=== PATIENT | female | born 1955 | race Caucasian/White ===

== ENCOUNTER 2017-06-20 20:59 | Inpatient (IN) | payer MEDICAID ==
[~2017-06-20] VITALS: Ht 167.6 cm; Wt 148.9 kg
[~2017-06-20 20:59] MED LIST: ACIDOPHILUS LA1 EAC1 ORAL; ARTIFICIAL TEAR15 ML BOTH EYES; ASCORBIC ACID500 MG ORAL; ASPIRIN81 MG ORAL; CARDIZEM30 MG ORAL; CEPACOL SORE T1 EAC5 MM; CRANBERRY450 M4 PO; DILAUDID2 MG ORAL; DIOVAN40 MG ORAL; DOCUSATE SODIU100 MG ORAL; DUONEB 0.5-3(2.53 ML HHN; EXELON3 MG ORAL; FERROUS SULFAT325 MG ORAL; FUROSEMIDE20 M1 ORAL; GABAPENTIN300 MG ORAL; LASIX40 MG ORAL; LEVEMIR100 UNIT/1 SUBQ; MULTIVITAMINS1 EAC2 ORAL; NITROGLYCERIN0.4 MG SL; NORVASC5 MG ORAL; OSCAL D500 MG PO; PLAVIX75 MG ORAL; PROTONIX40 MG ORAL; QVAR7.3 GM INH; SIMVASTATIN10 MG ORAL; SORBITOL 70%30 ML PO; TYLENOL325 MG ORAL; ZOFRAN4 M1 ORAL; [UNRECOGNIZED DRUG - CODE] SUBQ; regular insulin; voltaren TP
[2017-06-20 21:10] VITALS: BP 128/74
[2017-06-20] MEDS ORDERED: Vancomycin 1.5gm/D5W 250ml 250 ML IV ONE (21:15)
[2017-06-20] MEDS ORDERED: Cefepime HCl 2 GM in NS 110 ML IV SCH (21:15)
[2017-06-20] MEDS ORDERED: NS IVLG ONE (21:15)
[2017-06-20 22:01] LABS: HEMATOCRIT 41.4 % (37.0-47.0); HEMOGLOBIN 12.1 G/DL (12.0-16.0); MEAN CORPUSCULAR VOLUME 104 FL (80-99); PLATELET COUNT 63 K/UL (150-450); RED BLOOD COUNT 3.99 M/UL (4.20-5.40); RED CELL DISTRIBUTION WIDTH 12.9 % (11.6-14.8); WHITE BLOOD COUNT 5.8 K/UL (4.8-10.8)
[2017-06-20] MEDS ORDERED: Cefepime 2gm ONE (22:02)
[2017-06-20 22:06] LABS: ANION GAP 2 mmol/L (5-15); BLOOD UREA NITROGEN 53 mg/dL (7-18); CALCIUM 10.1 MG/DL (8.5-10.1); CARBON DIOXIDE 37 MMOL/L (21-32); CHLORIDE 106 MMOL/L (98-107); CREATININE 2.1 MG/DL (0.55-1.30); POTASSIUM 5.4 MMOL/L (3.5-5.1); SODIUM 145 MMOL/L (136-145)
[2017-06-20 22:17] LABS: ALANINE AMINOTRANSFERASE 16 U/L (12-78); ALBUMIN 2.9 G/DL (3.4-5.0); ALBUMIN/GLOBULIN RATIO 0.6 (1.0-2.7); ALKALINE PHOSPHATASE 59 U/L (46-116); ASPARTATE AMINO TRANSFERASE 30 U/L (15-37); BILIRUBIN,TOTAL 0.6 MG/DL (0.2-1.0); CREATINE KINASE 53 U/L (26-308)
[2017-06-20 22:22] LABS: INR 1.2 (0.9-1.1)
--- NOTE | 2017-06-20 22:41 | Emergency Room Report ---
History of Present Illness General Chief Complaint: Dyspnea/Respdistress Source: EMS Present Illness HPI The patient is brought in for respiratory distress. She is from a [facility]. Paramedics apparently were ordered to transport by her doctor. They were initially reluctant because the patient is DO NOT RESUSCITATE status. Apparently the doctor on the phone and asked him to come in for patient evaluation. Apparently she was bradycardic when they arrived but this improved when they helped open her airway. The patient has a history of pneumonia, congestive heart failure and cardiac disease, chronic renal failure, schizophrenia in the past. She is unable to give a history at this time. When here in December, she was able to answer questions. H/O psych. Discharged in December 2014 for constipation. Discharge dx: 1. Generalized weakness. 2. Morbid obesity. 3. Hypertensive cardiovascular disease. 4. Chronic kidney disease, etiology and duration unknown. 5. Neuropathy. 6. Type 2 diabetes mellitus. Allergies: Coded Allergies: CODEINE (Unverified Allergy, Unknown, 12/31/14) FLURAZEPAM (Unverified Allergy, Unknown, 12/31/14) PENICILLINS (Unverified Allergy, Unknown, 12/31/14) Patient History Limited by: medical condition Past Medical History: see triage record, old chart reviewed Social History: Denies: smoking, alcohol use, drug use Social History Narrative SNF - DNR Now: No Reviewed Nursing Documentation: PMH: Agreed, PSxH: Agreed Nursing Documentation-PMH Hx Cardiac Problems: Yes - atherosclerosis, angina Hx Hypertension: Yes Hx COPD: Yes Hx Diabetes: Yes Hx Gastrointestinal Problems: Yes - GERD, Obesity History Of Psychiatric Problem: Yes - Depression, Dementia, Bipolar Review of Systems All Other Systems: limited Physical Exam Vital Signs Date Time Temp Pulse Resp B/P (MAP) Pulse Ox O2 Delivery O2 Flow Rate FiO2 06/20/17 21:00 80 26 125/71 91 Room Air 06/20/17 21:17 100 Sp02 EP Interpretation: reviewed, abnormal - interpreted as low by me General Appearance: severe distress, Chronically Ill, Stupor Head: normocephalic Eyes: bilateral eye normal inspection ENT: dry mucus membranes Neck: supple Respiratory: respiratory distress, accessory muscle use, crackles, rales, rhonchi Cardiovascular #1: regular rate, rhythm, edema Cardiovascular #2: 2+ radial (L) Gastrointestinal: non tender, soft, decreased bowel sounds, overweight Musculoskeletal: other - no deformity Neurologic: other - unresponsive Psychiatric: other - stupor Reflexes: 1+ knee (R), 1+ knee (L) Skin: cyanosis, mottled, other - various hematomata and intertrigo Procedures Critical Care Time Critical Care Time Total Critical Care Time: 30 min bedside evaluation and treatment excludes procedures (EKG). Reason for critical care: NSTEMI, resp failure Possible complications: hypotension, hypertension, CA, shock, arrhythmias, metabolic acidosis, end organ damage, respiratory failure. Interventions: BIPAP, aspirin, antibiotics, fluids Course: Patient in extremis. BIPAP initiated and comprehensive eval with context of DNR. Pneumonia and UTI found. Antibiotics started. NSTEMI - aspirin given. Repeat evaluation with improvement. Consultations: nursing staff, EMS, respiratory Performed by: Dr. Wilson Tolerated well condition = critical, but improved Medical Decision Making Diagnostic Impression: Primary Impression: Respiratory failure Qualified Codes: J96.01 - Acute respiratory failure with hypoxia; J96.02 - Acute respiratory failure with hypercapnia Additional Impressions: Pneumonia Qualified Codes: J18.1 - Lobar pneumonia, unspecified organism CHF (congestive heart failure) Qualified Codes: I50.43 - Acute on chronic combined systolic (congestive) and diastolic (congestive) heart failure NSTEMI (non-ST elevated myocardial infarction) UTI (urinary tract infection) Qualified Codes: N39.0 - Urinary tract infection, site not specified ER Course The patient presents with respiratory distress. Differential includes acute myocardial infarction, congestive heart failure, as COPD, pneumonia amongst others. Clearly she has inadequate tidal volume. The fact he was bradycardic in the field prior to paramedics opened her airway is suggested she's moribund at the moment. We will aggressively attempt to turn respiratory failure around with BiPAP. No wheezing and no bronchospasm. Evaluation will be with EKG, chest x-ray and labs. The patient is critical at this time. Blood gas returns revealing a respiratory failure with respiratory acidosis. EKG shows no acute injury. Labs significant for normal WBC, elevated K, renal insufficiency, + troponin, elevated BNP, pyuria. Chest x-ray shows congestive heart failure and also a left-sided infiltrate with a right-sided effusion. The patient is given aspirin, antibiotics and hydration. Patient improved. No distress at 4:30. Laboratory Tests Test 06/20/17 21:10 06/20/17 21:35 06/21/17 00:00 Arterial Blood pH 7.114 (7.350-7.450) Arterial Blood Partial Pressure CO2 136.3 mmHg (35.0-45.0) *H Arterial Blood Partial Pressure O2 384.4 mmHg (75.0-100.0) H Arterial Blood HCO3 42.7 mmol/L (22.0-26.0) H Arterial Blood Oxygen Saturation 99.2 % (92.0-98.0) H Arterial Blood Base Excess 8.7 [place] Test Positive White Blood Count 5.8 K/UL (4.8-10.8) Red Blood Count 3.99 M/UL (4.20-5.40) L Hemoglobin 12.1 G/DL (12.0-16.0) Hematocrit 41.4 % (37.0-47.0) Mean Corpuscular Volume 104 FL (80-99) H Mean Corpuscular Hemoglobin 30.4 PG (27.0-31.0) Mean Corpuscular Hemoglobin Concent 29.3 G/DL (32.0-36.0) L Red Cell Distribution Width 12.9 % (11.6-14.8) Platelet Count 63 K/UL (150-450) L Mean Platelet Volume 7.6 FL (6.5-10.1) Neutrophils (%) (Auto) % (45.0-75.0) Lymphocytes (%) (Auto) % (20.0-45.0) Monocytes (%) (Auto) % (1.0-10.0) Eosinophils (%) (Auto) % (0.0-3.0) Basophils (%) (Auto) % (0.0-2.0) Differential Total Cells Counted 100 Neutrophils % (Manual) 92 % (45-75) H Lymphocytes % (Manual) 4 % (20-45) L Monocytes % (Manual) 3 % (1-10) Eosinophils % (Manual) 0 % (0-3) Basophils % (Manual) 0 % (0-2) Band Neutrophils 1 % (0-8) Platelet Estimate Decreased L Platelet Morphology Normal Prothrombin Time 12.4 SEC (9.30-11.50) H Prothrombin Time INR 1.2 (0.9-1.1) H PTT 23 SEC (23-33) Sodium Level 145 MMOL/L (136-145) Potassium Level 5.4 MMOL/L (3.5-5.1) H Chloride Level 106 MMOL/L (98-107) Carbon Dioxide Level 37 MMOL/L (21-32) H Anion Gap 2 mmol/L (5-15) L Blood Urea Nitrogen 53 mg/dL (7-18) H Creatinine 2.1 MG/DL (0.55-1.30) H Estimate Glomerular Filtration Rate 23.9 mL/min (>60) Glucose Level 194 MG/DL (74-106) H Lactic Acid Level 1.00 mmol/L (0.66-2.22) Calcium Level 10.1 MG/DL (8.5-10.1) Total Bilirubin 0.6 MG/DL (0.2-1.0) Aspartate Amino Transferase (AST) 30 U/L (15-37) Alanine Aminotransferase (ALT) 16 U/L (12-78) Alkaline Phosphatase 59 U/L (46-116) Total Creatine Kinase 53 U/L (26-308) Troponin I 0.818 ng/mL (0.000-0.056) Pro-B-Type Natriuretic Peptide 04053 pg/mL (0-125) H Total Protein 7.6 G/DL (6.4-8.2) Albumin 2.9 G/DL (3.4-5.0) L Globulin 4.7 g/dL Albumin/Globulin Ratio 0.6 (1.0-2.7) L Lipase 110 U/L (73-393) Urine Color Yellow Urine Appearance Cloudy Urine pH 5 (4.5-8.0) Urine Specific [place] 1.025 (1.005-1.035) Urine Protein 4+ (NEGATIVE) H Urine Glucose (UA) 1+ (NEGATIVE) H Urine Ketones Negative (NEGATIVE) Urine Occult Blood 3+ (NEGATIVE) H Urine Nitrite Negative (NEGATIVE) Urine Bilirubin Negative (NEGATIVE) Urine Urobilinogen Normal MG/DL (0.0-1.0) Urine Leukocyte Esterase 3+ (NEGATIVE) H Urine RBC 15-20 /HPF (0 - 2) H Urine WBC Tntc /HPF (0 - 2) H Urine Squamous Epithelial Cells Moderate /LPF (NONE/OCC) H Urine Amorphous Sediment Moderate /LPF (NONE) H Urine Bacteria Many /HPF (NONE) H Microbiology Date/Time Source Procedure Growth Status 12/25/17 21:35 Nasal Nares Influenza Types A,B Antigen (JEY) - Final Complete EKG Diagnostic Results Rate: normal Rhythm: NSR ST Segments: no acute changes Rhythm Strip Diag. Results EP Interpretation: yes Rhythm: NSR, no PVC's, no ectopy Chest X-Ray Diagnostic Results Chest X-Ray Diagnostic Results : Chest X-Ray Ordered: Yes # of Views/Limited/Complete: 1 View Indication: Other Interpretation: no pneumothorax, other - R effusion and L infiltrate Impression: Other Electronically Signed by: Electronically signed by Patrick Wilson MD Last Vital Signs Date Time Temp Pulse Resp B/P (MAP) Pulse Ox O2 Delivery O2 Flow Rate FiO2 06/21/17 03:13 72 31 99 Facial 100 06/21/17 01:05 97.7 118/72 Status: improved Disposition: ADMITTED INPATIENT Condition: Critical Referrals: NON PHYSICIAN (PCP) Patrick Wilson M.D. Jun 20, 2017 22:41
[2017-06-20 23:05] VITALS: BP 130/78
[2017-06-21] VITALS (8 sets, daily range): BP systolic 94–151; BP diastolic 42–88
[2017-06-21 00:25] LABS: APPEARANCE,URINE CLOUDY; BILIRUBIN, URINE NEGATIVE (NEGATIVE); GLUCOSE, URINE (UA) 1+ (NEGATIVE); KETONES,URINE NEGATIVE (NEGATIVE); LEUKOCYTE ESTERASE ,URINE 3+ (NEGATIVE); NITRITE,URINE NEGATIVE (NEGATIVE); PH,URINE 5 (4.5-8.0); PROTEIN,URINE 4+ (NEGATIVE); UROBILINOGEN,URINE NORMAL MG/DL (0.0-1.0)
[2017-06-21 00:28] LABS: COLOR,URINE YELLOW
--- NOTE | 2017-06-21 12:19 | Diagnostic Imaging Report ---
Indication: Dyspnea Comparison: None A single view chest radiograph was obtained. Findings: Interstitial edema suspected. The heart is enlarged. Vascularity is also prominent. Bones are osteopenic. IMPRESSION: Suspected interstitial edema/CHF
[2017-06-21] MEDS ORDERED: Ondansetron ODT 8mg tab ORAL PRN (13:45)
[2017-06-21] MEDS ORDERED: Nitroglycerin Subl 0.4mg tab SL PRN (13:45)
[2017-06-21] MEDS ORDERED: Milk of Magnesia 30ml Ud ORAL PRN (13:45)
[2017-06-21] MEDS ORDERED: Albuterol ud Inhalation HHN PRN (14:15)
[2017-06-21] MEDS ORDERED: Ipratropium 0.02% Inh Soln 2.5ml UD HHN PRN (14:30)
[2017-06-21] MEDS ORDERED: Albuterol/Ipratropium 3ml neb HHN PRN (14:45)
[2017-06-21 15:53] LABS: HEMATOCRIT 34.3 % (37.0-47.0); HEMOGLOBIN 10.6 G/DL (12.0-16.0); MEAN CORPUSCULAR VOLUME 103 FL (80-99); PLATELET COUNT 57 K/UL (150-450); RED BLOOD COUNT 3.33 M/UL (4.20-5.40); RED CELL DISTRIBUTION WIDTH 12.8 % (11.6-14.8); WHITE BLOOD COUNT 2.9 K/UL (4.8-10.8)
--- NOTE | 2017-06-21 15:58 | Consultation ---
Consult Note Consult Note The patient is brought in for respiratory distress. He had a half-way facility. Paramedics apparently were ordered [place] because the patient is DO NOT RESUSCITATE status. Apparently the doctor on the phone and asked him to come in for patient evaluation. The patient has a history of pneumonia, congestive heart failure and cardiac disease, chronic renal failure in the past. She is unable to give a history at this time. Discharged in 2014 for constipation. Discharge dx: 1. Generalized weakness. 2. Morbid obesity. 3. Hypertensive cardiovascular disease. 4. Chronic kidney disease, etiology and duration unknown. 5. Neuropathy. 6. Type 2 diabetes mellitus. Allergies: CODEINE (Unverified Allergy, Unknown, 12/31/14) FLURAZEPAM (Unverified Allergy, Unknown, 12/31/14) PENICILLINS (Unverified Allergy, Unknown, 12/31/14) Hx Cardiac Problems: Yes - atherosclerosis, angina Hx Hypertension: Yes Hx COPD: Yes Hx Diabetes: Yes Hx Gastrointestinal Problems: Yes - GERD, Obesity History Of Psychiatric Problem: Yes - Depression, Dementia, Bipolar . Assessment/Plan Renal failure- Has a chronic component with ? superimposed acute- in December 2014 the Cr was 2.2 Acute respiratory failure, ON BIPAP Morbid obesity Diabetic Nephropathy COPD Depression Dementia HypoAlbuminemia ? Nephrotic Syndrom Plan: Slow hydrate pul support 24 h urine CrCl and protein Urine studies keep BP and BS TALIA John Jun 21, 2017 15:58
[2017-06-21] MEDS ORDERED: Sodium Polystyrene Sulfonate 15gm Powder ORAL ONE (16:00)
[2017-06-21 16:05] LABS: ANION GAP 5 mmol/L (5-15); BLOOD UREA NITROGEN 56 mg/dL (7-18); CALCIUM 8.8 MG/DL (8.5-10.1); CARBON DIOXIDE 32 MMOL/L (21-32); CHLORIDE 109 MMOL/L (98-107); CREATININE 2.2 MG/DL (0.55-1.30); POTASSIUM 4.9 MMOL/L (3.5-5.1); SODIUM 146 MMOL/L (136-145)
[2017-06-21] MEDS: NovoLOG Insulin Flexpen SUBQ SCH ×2 (16:30→21:00)
[2017-06-21] MEDS ORDERED: Flu Vaccine Quadrivalent 0.5ml IM ONE (18:00)
[2017-06-21] MEDS: Docusate 250mg cap ORAL SCH (18:00)
[2017-06-21] MEDS ORDERED: Nystatin Powder 100,000 units/gm 15gm TOPIC SCH (18:00)
[2017-06-21] MEDS ORDERED: Calcium Carbonate 500mg w/Vit D 200iu tab ORAL SCH (18:00)
[2017-06-21] MEDS: Exelon 1.5mg cap ORAL SCH (18:00)
[2017-06-21] MEDS: Cefepime HCl 2 GM in NS 110 ML IVPB SCH (18:37)
--- NOTE | 2017-06-21 20:15 | Consultation ---
DATE OF CONSULTATION: 06/21/2017 PULMONARY CONSULTATION CONSULTING PHYSICIAN: George Jansen M.D. REFERRING PHYSICIAN: Phoenix Muñoz M.D. HISTORY OF PRESENT ILLNESS: The patient is a 62-year-old female, brought in from the prison facility. The patient currently is a Do Not Resuscitate on chart. The patient with history of pneumonia, CHF. The patient also in chronic renal failure. The patient was seen and evaluated in the emergency room. Chest x-ray showed pulmonary edema and pleural effusion. Arterial blood gases were significantly reduced, pH 7.11. The patient now admitted for further care and management and further optimization. I was called to assist and evaluate further. PAST MEDICAL HISTORY: Generalized weakness, morbid obesity, hypertensive heart disease, chronic kidney disease, neuropathy, and diabetes. ALLERGIES: Noted. REVIEW OF SYSTEMS: Notable for atherosclerosis, angina, GERD, obesity, depression, and dementia. PHYSICAL EXAMINATION: GENERAL: The patient is an ill-appearing female. The patient is altered at present. VITAL SIGNS: On BiPAP, temperature 97.8, pulse 62, respirations 14, blood pressure 97/48, and saturation is 100%. HEENT: Fairly negative. NECK: Supple. LUNGS: With coarse breath sounds. Reduced overall. CARDIAC: S1 and S2. Regular rate and rhythm. ABDOMEN: Soft and nontender. EXTREMITIES: Without cyanosis. LABORATORY DATA: Lab data reviewed, notable for potassium 5.4, BUN 52, and creatinine 2.1. Arterial blood gases initially done last night, pH was 7.11, pCO2 136, and pO2 noted. IMPRESSION: 1. Acute on chronic respiratory failure, currently Do Not Resuscitate status. 2. Profound hypercapnia. 3. Pleural effusion. 4. Possible pulmonary edema. 5. Renal failure. RECOMMENDATIONS: Supportive care. Likely need diuresis. We will followup arterial blood gases and maintain BiPAP. Confirm Do Not Resuscitate status as per primary physician. Followup clinically for changes. Empiric antibiotics and we will await admission to floor care and thereafter proceed with further intervention. George Jansen M.D. DR: TANVI JOB#: [id number] CC: GISELL
--- NOTE | 2017-06-21 22:00 | Consultation ---
DATE OF CONSULTATION: 06/21/2017 INFECTIOUS DISEASES CONSULTATION PRIMARY ATTENDING: Phoenix Muñoz M.D. REASON FOR CONSULTATION: COPD exacerbation and pneumonia. HISTORY OF PRESENT ILLNESS: A 62-year-old white female admitted last night from nursing facility because of respiratory distress. The patient was found to have hypercapnia and respiratory failure and is currently on BiPAP machine. She has shortness of breath and coughing. PAST MEDICAL HISTORY: Significant for diabetes mellitus type 2, morbid obesity, chronic kidney disease, dementia, and anemia. MEDICATIONS: Getting Plavix, Pepcid, isosorbide, diltiazem, Senokot, bupropion, Lipitor, metoprolol, gabapentin , cefepime, insulin, DuoNeb inhaler, Mylanta, methocarbamol, milk of magnesia. ALLERGIES: Allergic to codeine, penicillin, lorazepam, and flurazepam. SOCIAL HISTORY: long-term resident. She was a smoker before. No other significant history obtainable by the patient. PHYSICAL EXAMINATION: VITAL SIGNS: Temperature 97.8 degrees, afebrile, pulse 78, blood pressure 111/82, and respiratory rate is 18. GENERAL APPEARANCE: Morbidly obese, on BiPAP. HEAD AND NECK: On BiPAP. HEART: Normal rate. LUNGS: Decreased expansion and increased expiratory time. ABDOMEN: Soft and obese. EXTREMITIES: She has no significant edema. SKIN: She has some bruises and some rash below the breast. LABORATORY AND DIAGNOSTIC DATA: WBC 5.8, hemoglobin 12.1, hematocrit 41.4, and platelets 63. Sodium 145, potassium 5.4, BUN 53, creatinine 2.1, and glucose 194. BNP was elevated to 21,631. Troponin was elevated to 0.818. Albumin is low 2.9. Chest x-ray show interstitial edema and CHF. IMPRESSION: Chronic obstructive pulmonary disease exacerbation versus pneumonia. The patient seems to have also congestive heart failure and elevated troponin. She has diabetes mellitus, morbid obesity, chronic kidney disease, hypercapnic respiratory failure, and penicillin allergy. We will continue with cefepime. We will follow up the cultures. Influenza A and B test was negative. At the end of my exam, I thank Dr. Muñoz for involving me in the care of this patient. Star Spring M.D. DR: Ella JOB#: [id number] CC: GISELL
[2017-06-22] VITALS: BP 152/82
[2017-06-22] MEDS: Nystatin Powder 100,000 units/gm 15gm TOPIC SCH ×4 (01:28→17:13)
[2017-06-22] MEDS: Metoprolol Tartrate 50mg tab ORAL SCH ×3 (01:29→21:00)
[2017-06-22] MEDS ORDERED: Sodium Polystyrene Sulfonate 15gm Powder ORAL ONE (02:00)
[2017-06-22] MEDS: Methocarbamol 500mg tab ORAL PRN (03:26)
[2017-06-22 04:00] VITALS: BP 164/79
--- NOTE | 2017-06-22 04:30 | History and Physical Report ---
DATE OF ADMISSION: 06/21/2017 IDENTIFICATION DATA: The patient is a pleasant 62-year-old female with past medical history significant for diabetes mellitus type 2, morbid obesity, CKD, and anemia history, at this time, presents to the hospital with COPD exacerbation, respiratory distress, hypercapnic respiratory failure, is on BiPAP, some shortness of breath, as well as coughing and at this time, I am covering. ID service consulted for evaluation and care as well as Pulmonary team and Renal. PAST MEDICAL HISTORY: Generalized weakness, morbid obesity, hypertensive heart disease, CKD, neuropathy, and type 2 diabetes mellitus. ALLERGIES: Codeine . REVIEW OF SYSTEMS: CONSTITUTIONAL: No fever, chills, or night sweats. SKIN: No rashes, bumps, or itching. HEENT: No headache, hearing or vision changes. BREASTS: No lumps, pain, or discharge. PULMONARY: No cough, sputum, or shortness of breath. GASTROINTESTINAL: No nausea, vomiting, or diarrhea. GENITOURINARY: No dysuria, frequency, or urgency. MUSCULOSKELETAL: No joint swelling, muscle pain, or trauma. PHYSICAL EXAMINATION: GENERAL: No acute distress. VITAL SIGNS: Reviewed. PULMONARY: Decreased breath sounds. CARDIOVASCULAR: Regular rate. No S3 or S4. ABDOMEN: Soft, nontender, and nondistended. EXTREMITIES: A 1+ edema. LABORATORY DATA: WBC , hemoglobin 12.6, hematocrit 34, and platelet count 57,000. INR 1.3. BUN of 56 and creatinine 2.2. Hepatitis C and HIV are negative. IMAGING: Reviewed. Ultrasound of the chest suspected interstitial edema with congestive heart failure. Renal ultrasound from two years ago, morbid obesity noted. ASSESSMENT AND RECOMMENDATIONS: 1. Pancytopenia, unknown cause. Reviewed the patient's current imaging, for me to obtain ultrasound of the abdomen, which is pending potentially related to congestive heart failure as well. 2. Anemia secondary to chronic kidney disease. 3. Elevated troponin, non-ST elevation myocardial infarction. Cardiology service consulted. 4. Chronic obstructive pulmonary disease exacerbation versus pneumonia. Occult blood cultures. Follow up on cultures. Has been seen by Dr. Spring. 5. She is on BiPAP currently and is DNR. On empiric antibiotics as per Pulmonary team. 6. Chronic kidney disease, being seen by Dr. Perez, superimposed acute kidney injury on chronic kidney disease. I appreciate consult and care. Phoenix Muñoz M.D. DR: JACKIE JOB#: [id number] CC:
[2017-06-22 05:38] LABS: HEMATOCRIT 33.3 % (37.0-47.0); HEMOGLOBIN 10.5 G/DL (12.0-16.0); MEAN CORPUSCULAR VOLUME 104 FL (80-99); PLATELET COUNT 63 K/UL (150-450); RED BLOOD COUNT 3.21 M/UL (4.20-5.40); RED CELL DISTRIBUTION WIDTH 13.2 % (11.6-14.8); WHITE BLOOD COUNT 2.8 K/UL (4.8-10.8)
[2017-06-22 05:57] LABS: ALANINE AMINOTRANSFERASE 14 U/L (12-78); ALBUMIN 2.2 G/DL (3.4-5.0); ALBUMIN/GLOBULIN RATIO 0.5 (1.0-2.7); ALKALINE PHOSPHATASE 47 U/L (46-116); ANION GAP 1 mmol/L (5-15); ASPARTATE AMINO TRANSFERASE 30 U/L (15-37); BILIRUBIN,TOTAL 0.3 MG/DL (0.2-1.0); BLOOD UREA NITROGEN 54 mg/dL (7-18); CALCIUM 8.7 MG/DL (8.5-10.1); CARBON DIOXIDE 34 MMOL/L (21-32); CHLORIDE 109 MMOL/L (98-107); CHOLESTEROL 90 MG/DL (< 200); GAMMA GLUTAMYL TRANSPEPTIDASE 69 U/L (5-85); HDL CHOLESTEROL 53 MG/DL (40-60); PHOSPHORUS 2.9 MG/DL (2.5-4.9); POTASSIUM 4.8 MMOL/L (3.5-5.1); SODIUM 144 MMOL/L (136-145); TRIGLYCERIDES 82 MG/DL (30-150)
[2017-06-22] MEDS: NovoLOG Insulin Flexpen SUBQ SCH ×4 (06:18→21:00)
[2017-06-22 08:00] VITALS: BP 146/77
--- NOTE | 2017-06-22 08:25 | Pulmonology Progress Note ---
Assessment/Plan Assessment/Plan IMPRESSION: 1. Acute on chronic respiratory failure, 2. Profound hypercapnia. 3. Pleural effusion. 4. Possible pulmonary edema. 5. Renal failure. PLAN BIPAP PRN follow up ABG avoid sedation close follow up MAIRA management impression, plan, and exam edited and reviewed in detail care discussed with RN Subjective Allergies: Coded Allergies: CODEINE (Unverified Allergy, Unknown, 12/31/14) FLURAZEPAM (Unverified Allergy, Unknown, 12/31/14) PENICILLINS (Unverified Allergy, Unknown, 12/31/14) Subjective off bipap on oxygen at present Objective Last 24 Hour Vital Signs Date Time Temp Pulse Resp B/P (MAP) Pulse Ox O2 Delivery O2 Flow Rate FiO2 06/22/17 04:00 99.5 94 24 164/79 99 Venturi Mask 06/22/17 04:00 94 06/22/17 01:29 106 152/82 06/22/17 00:00 104 06/22/17 00:00 98.0 106 17 152/82 99 Venturi Mask 06/21/17 20:00 98.2 98 17 133/88 99 Venturi Mask 06/21/17 20:00 101 06/21/17 19:00 Venturi Mask 14.0 55 06/21/17 19:00 98 Venturi Mask 14.0 55 06/21/17 16:51 85 18 100 Facial 30 06/21/17 16:00 98.6 95 18 151/63 95 30 06/21/17 16:00 98.6 95 18 151/63 95 50 06/21/17 16:00 30 06/21/17 15:18 94 06/21/17 14:34 78 18 99 Facial 30 06/21/17 13:26 74 16 100 Facial 30 06/21/17 12:00 79 06/21/17 10:40 97.8 71 20 111/82 98 50 06/21/17 09:35 97.8 71 20 111/82 98 50 06/21/17 08:45 63 16 100 Facial 30 Intake and Output 06/21/17 06/22/17 19:00 07:00 Intake Total 75 ml 1145 ml Output Total 450 ml 600 ml Balance -375 ml 545 ml Intake Oral 0 ml IV Total 75 ml 1045 ml Other 100 ml Output Urine Total 600 ml Other 450 ml Objective GENERAL: The patient is an ill-appearing female. The patient is altered at present. HEENT: Fairly negative. NECK: Supple. LUNGS: With coarse breath sounds. Reduced overall. CARDIAC: S1 and S2. Regular rate and rhythm. ABDOMEN: Soft and nontender. EXTREMITIES: Without cyanosis. Microbiology Date/Time Source Procedure Growth Status 06/20/17 21:30 Blood Blood Culture - Preliminary NO GROWTH AFTER 24 HOURS Resulted 06/20/17 21:15 Blood Blood Culture - Preliminary NO GROWTH AFTER 24 HOURS Resulted 06/20/17 21:35 Nasal Nares Influenza Types A,B Antigen (JEY) - Final Complete 06/21/17 00:00 Urine,Clean Catch Urine Culture - Preliminary Streptococcus Species Resulted Laboratory Tests 06/21/17 15:20: White Blood Count 2.9L, Red Blood Count 3.33L, Hemoglobin 10.6L, Hematocrit 34.3L, Mean Corpuscular Volume 103H, Mean Corpuscular Hemoglobin 32.0H, Mean Corpuscular Hemoglobin Concent 31.0L, Red Cell Distribution Width 12.8, Platelet Count 57L, Mean Platelet Volume 8.3, Neutrophils (%) (Auto) , Lymphocytes (%) (Auto) , Monocytes (%) (Auto) , Eosinophils (%) (Auto) , Basophils (%) (Auto) , Differential Total Cells Counted 100, Neutrophils % ( Manual) 85H, Lymphocytes % (Manual) 7L, Monocytes % (Manual) 4, Eosinophils % ( Manual) 2, Basophils % (Manual) 0, Band Neutrophils 2, Platelet Estimate DecreasedL, Platelet Morphology Normal, Hypochromasia 1+, Anisocytosis 1+, Sodium Level 146H, Potassium Level 4.9, Chloride Level 109H, Carbon Dioxide Level 32, Anion Gap 5, Blood Urea Nitrogen 56H, Creatinine 2.2H, Estimat Glomerular Filtration Rate 22.6, Glucose Level 98, Calcium Level 8.8, Troponin I 0.779H, Hepatitis A IgM Antibody [Pending], Hepatitis B Surface Antigen [ Pending], Hepatitis B Core IgM Antibody [Pending], Hepatitis C Antibody [Pending ], HIV (1&2) Antibody Rapid Negative 06/22/17 04:20: White Blood Count 2.8L, Red Blood Count 3.21L, Hemoglobin 10.5L, Hematocrit 33.3L, Mean Corpuscular Volume 104H, Mean Corpuscular Hemoglobin 32.6H, Mean Corpuscular Hemoglobin Concent 31.4L, Red Cell Distribution Width 13.2, Platelet Count 63L, Mean Platelet Volume 7.4, Neutrophils (%) (Auto) , Lymphocytes (%) (Auto) , Monocytes (%) (Auto) , Eosinophils (%) (Auto) , Basophils (%) (Auto) , Differential Total Cells Counted 100, Neutrophils % ( Manual) 88H, Lymphocytes % (Manual) 8L, Monocytes % (Manual) 4, Eosinophils % ( Manual) 0, Basophils % (Manual) 0, Band Neutrophils 0, Platelet Estimate DecreasedL, Platelet Morphology Normal, Hypochromasia 1+, Sodium Level 144, Potassium Level 4.8, Chloride Level 109H, Carbon Dioxide Level 34H, Anion Gap 1L , Blood Urea Nitrogen 54H, Creatinine 2.0H, Estimat Glomerular Filtration Rate 25.2, Glucose Level 79, Calcium Level 8.7, Troponin I 1.519H, Macrocytosis 1+, Hemoglobin A1c 6.2H, Uric Acid 8.7H, Phosphorus Level 2.9, Magnesium Level 1.4L , Total Bilirubin 0.3, Gamma Glutamyl Transpeptidase 69, Aspartate Amino Transf (AST/SGOT) 30, Alanine Aminotransferase (ALT/SGPT) 14, Alkaline Phosphatase 47, C-Reactive Protein, Quantitative 11.8H, Pro-B-Type Natriuretic Peptide [id number], Total Protein 6.8, Albumin 2.2L, Globulin 4.6, Albumin/Globulin Ratio 0.5L, Triglycerides Level 82, Cholesterol Level 90, LDL Cholesterol 29, HDL Cholesterol 53, Cholesterol/HDL Ratio 1.7L, Thyroid Stimulating Hormone (TSH) 0.382 Current Medications Medications (Trade) Dose Ordered Sig/Brooks Route PRN Reason Start Time Stop Time Status Last Admin Dose Admin Al Hydroxide/Mg Hydroxide (Mylanta) 30 ml Q4HR PRN ORAL heartburn 06/21/17 13:45 07/21/17 13:44 Albuterol/ Ipratropium (Albuterol/ Ipratropium) 3 ml Q4H PRN HHN Shortness of Breath 06/21/17 14:45 06/26/17 14:44 Atorvastatin Calcium (Lipitor) 40 mg BEDTIME ORAL 06/21/17 21:00 07/21/17 20:59 06/22/17 01:28 Bupropion HCl (Wellbutrin XL) 450 mg DAILY ORAL 06/22/17 09:00 07/22/17 08:59 Cefepime HCl 2 gm/ Sodium Chloride 110 ml @ 220 mls/hr Q24H IVPB 06/21/17 17:00 06/28/17 16:59 06/21/17 18:37 Clopidogrel Bisulfate (Plavix) 75 mg DAILY ORAL 06/22/17 09:00 07/22/17 08:59 Dextrose (Dextrose 50%) STAT PRN IV Hypoglycemia 06/21/17 14:15 07/21/17 14:14 06/21/17 14:32 Diltiazem HCl (Cardizem CD) 120 mg DAILY ORAL 06/22/17 09:00 07/22/17 08:59 Docusate Sodium (Colace) 250 mg TWICE A DAY ORAL 06/21/17 18:00 07/21/17 17:59 Famotidine (Pepcid) 20 mg Q12HR ORAL 06/21/17 18:00 07/21/17 17:59 Gabapentin (Neurontin) 300 mg Q12HR ORAL 06/21/17 21:00 07/21/17 20:59 06/22/17 01:28 Insulin Aspart (NovoLOG) BEFORE MEALS AND HS SUBQ 06/21/17 16:30 07/21/17 16:29 Isosorbide Mononitrate (Imdur) 30 mg DAILY ORAL 06/22/17 09:00 07/22/17 08:59 Methocarbamol (Robaxin) 500 mg Q12HR PRN ORAL MUSCLE SPASM LOWER BACK 06/21/17 13:45 07/21/17 13:44 06/22/17 03:26 Metoprolol Tartrate (Lopressor) 50 mg Q12HR ORAL 06/21/17 21:00 07/21/17 20:59 06/22/17 01:29 Nitroglycerin (Ntg) 0.4 mg Q5M PRN SL Prn Chest Pain 06/21/17 13:45 07/21/17 13:44 Nystatin (Nystop Powder) 1 applic THREE TIMES A DAY TOPIC 06/21/17 20:00 07/21/17 19:59 06/22/17 01:28 Ondansetron HCl (Zofran ODT) 8 mg BID PRN ORAL Nausea & Vomiting 06/21/17 13:45 07/21/17 13:44 Rivastigmine Tartrate (Exelon) 6 mg TWICE A DAY ORAL 06/21/17 18:00 07/21/17 17:59 Sennosides (Senokot) 1 tab DAILY ORAL 06/22/17 09:00 07/22/17 08:59 Sodium Polystyrene Sulfonate (Kayexalate) 45 gm ONCE ONCE ORAL 06/22/17 02:00 06/22/17 02:01 UNV Sodium Chloride 1,000 ml @ 75 mls/hr [id number] IV 06/21/17 16:00 07/21/17 15:59 06/22/17 04:59 GLENN MILLARD Jun 22, 2017 08:25
[2017-06-22] MEDS: Docusate 250mg cap ORAL SCH ×2 (09:00→17:10)
[2017-06-22] MEDS: Sennosides 8.6mg ORAL SCH (09:00)
[2017-06-22] MEDS ORDERED: dilTIAZem HCl CD 120mg cap ORAL SCH (09:00)
[2017-06-22] MEDS: Exelon 1.5mg cap ORAL SCH ×2 (09:00→17:10)
[2017-06-22] MEDS: BuPROPion XL 150mg tab ORAL SCH (09:00)
[2017-06-22] MEDS ORDERED: Imdur 30mg tab ORAL SCH (09:00)
--- NOTE | 2017-06-22 11:36 | Diagnostic Imaging Report ---
Indication: NG tube placement Comparison: None Single view of the abdomen obtained Findings: NG tube is projected over the epigastric region. The tube should be advanced further. IMPRESSION: NG tube should be advanced further. [facility] has communicated the preliminary results to the Emergency Department. Their findings are largely concordant with this report.
[2017-06-22 12:00] VITALS: BP 159/85
--- NOTE | 2017-06-22 12:12 | Infectious Diseases Prog Note ---
Assessment/Plan Assessment/Plan A: Pneumonia UTI COPD Hypercapnic respiratory failure Chronic kidney disease Morbid obesity DM PCN allergy P; Continue Cefepime will f/u cultures Subjective ROS Limited/Unobtainable: Yes Respiratory: Reports: productive cough Allergies: Coded Allergies: CODEINE (Unverified Allergy, Unknown, 12/31/14) FLURAZEPAM (Unverified Allergy, Unknown, 12/31/14) PENICILLINS (Unverified Allergy, Unknown, 12/31/14) Objective Vital Signs Last 24 Hour Vital Signs Date Time Temp Pulse Resp B/P (MAP) Pulse Ox O2 Delivery O2 Flow Rate FiO2 06/22/17 12:00 95 06/22/17 09:43 95 18 99 Facial 55 06/22/17 09:06 Venturi Mask 14.0 55 06/22/17 09:06 98 Venturi Mask 14.0 55 06/22/17 09:00 95 146/77 06/22/17 09:00 95 146/77 06/22/17 09:00 146/77 06/22/17 08:00 100 06/22/17 08:00 98.5 100 24 146/77 97 Venturi Mask 06/22/17 04:00 99.5 94 24 164/79 99 Venturi Mask 06/22/17 04:00 94 06/22/17 01:29 106 152/82 06/22/17 00:00 104 06/22/17 00:00 98.0 106 17 152/82 99 Venturi Mask 06/21/17 20:00 98.2 98 17 133/88 99 Venturi Mask 06/21/17 20:00 101 06/21/17 19:00 Venturi Mask 14.0 55 06/21/17 19:00 98 Venturi Mask 14.0 55 06/21/17 16:51 85 18 100 Facial 30 06/21/17 16:00 98.6 95 18 151/63 95 30 06/21/17 16:00 98.6 95 18 151/63 95 50 06/21/17 16:00 30 06/21/17 15:18 94 06/21/17 14:34 78 18 99 Facial 30 06/21/17 13:26 74 16 100 Facial 30 Height (Feet): 5 Height (Inches): 6.00 Weight (Pounds): 227 HEENT: other - O2 by mask Respiratory/Chest: decreased breath sounds, other - decreased expansion Cardiovascular: tachycardia Abdomen: soft, non tender Extremities: no edema Neurologic/Psychiatric: other - drowsy Microbiology Date/Time Source Procedure Growth Status 06/20/17 21:30 Blood Blood Culture - Preliminary NO GROWTH AFTER 24 HOURS Resulted 06/20/17 21:15 Blood Blood Culture - Preliminary NO GROWTH AFTER 24 HOURS Resulted 06/20/17 21:35 Nasal Nares Influenza Types A,B Antigen (JEY) - Final Complete 06/21/17 00:00 Urine,Clean Catch Urine Culture - Preliminary Streptococcus Species Resulted Laboratory Tests Test 06/21/17 15:20 06/22/17 04:20 06/22/17 09:25 White Blood Count 2.9 K/UL (4.8-10.8) L 2.8 K/UL (4.8-10.8) L Red Blood Count 3.33 M/UL (4.20-5.40) L 3.21 M/UL (4.20-5.40) L Hemoglobin 10.6 G/DL (12.0-16.0) L 10.5 G/DL (12.0-16.0) L Hematocrit 34.3 % (37.0-47.0) L 33.3 % (37.0-47.0) L Mean Corpuscular Volume 103 FL (80-99) H 104 FL (80-99) H Mean Corpuscular Hemoglobin 32.0 PG (27.0-31.0) H 32.6 PG (27.0-31.0) H Mean Corpuscular Hemoglobin Concent 31.0 G/DL (32.0-36.0) L 31.4 G/DL (32.0-36.0) L Red Cell Distribution Width 12.8 % (11.6-14.8) 13.2 % (11.6-14.8) Platelet Count 57 K/UL (150-450) L 63 K/UL (150-450) L Mean Platelet Volume 8.3 FL (6.5-10.1) 7.4 FL (6.5-10.1) Neutrophils (%) (Auto) % (45.0-75.0) % (45.0-75.0) Lymphocytes (%) (Auto) % (20.0-45.0) % (20.0-45.0) Monocytes (%) (Auto) % (1.0-10.0) % (1.0-10.0) Eosinophils (%) (Auto) % (0.0-3.0) % (0.0-3.0) Basophils (%) (Auto) % (0.0-2.0) % (0.0-2.0) Differential Total Cells Counted 100 100 Neutrophils % (Manual) 85 % (45-75) H 88 % (45-75) H Lymphocytes % (Manual) 7 % (20-45) L 8 % (20-45) L Monocytes % (Manual) 4 % (1-10) 4 % (1-10) Eosinophils % (Manual) 2 % (0-3) 0 % (0-3) Basophils % (Manual) 0 % (0-2) 0 % (0-2) Band Neutrophils 2 % (0-8) 0 % (0-8) Platelet Estimate Decreased L Decreased L Platelet Morphology Normal Normal Hypochromasia 1+ 1+ Anisocytosis 1+ Sodium Level 146 MMOL/L (136-145) H 144 MMOL/L (136-145) Potassium Level 4.9 MMOL/L (3.5-5.1) 4.8 MMOL/L (3.5-5.1) Chloride Level 109 MMOL/L (98-107) H 109 MMOL/L (98-107) H Carbon Dioxide Level 32 MMOL/L (21-32) 34 MMOL/L (21-32) H Anion Gap 5 mmol/L (5-15) 1 mmol/L (5-15) L Blood Urea Nitrogen 56 mg/dL (7-18) H 54 mg/dL (7-18) H Creatinine 2.2 MG/DL (0.55-1.30) H 2.0 MG/DL (0.55-1.30) H Estimat Glomerular Filtration Rate 22.6 mL/min (>60) 25.2 mL/min (>60) Glucose Level 98 MG/DL (74-106) 79 MG/DL (74-106) Calcium Level 8.8 MG/DL (8.5-10.1) 8.7 MG/DL (8.5-10.1) Troponin I 0.779 ng/mL (0.000-0.056) 1.519 ng/mL (0.000-0.056) Hepatitis A IgM Antibody Pending Hepatitis B Surface Antigen Pending Hepatitis B Core IgM Antibody Pending Hepatitis C Antibody Pending HIV (1&2) Antibody Rapid Negative (NEGATIVE) Macrocytosis 1+ Hemoglobin A1c 6.2 % (4.3-6.0) H Uric Acid 8.7 MG/DL (2.6-7.2) H Phosphorus Level 2.9 MG/DL (2.5-4.9) Magnesium Level 1.4 MG/DL (1.8-2.4) L Total Bilirubin 0.3 MG/DL (0.2-1.0) Gamma Glutamyl Transpeptidase 69 U/L (5-85) Aspartate Amino Transf (AST/SGOT) 30 U/L (15-37) Alanine Aminotransferase (ALT/SGPT) 14 U/L (12-78) Alkaline Phosphatase 47 U/L (46-116) C-Reactive Protein, Quantitative 11.8 mg/dL (0.00-0.90) H Pro-B-Type Natriuretic Peptide 14640 pg/mL (0-125) H Total Protein 6.8 G/DL (6.4-8.2) Albumin 2.2 G/DL (3.4-5.0) L Globulin 4.6 g/dL Albumin/Globulin Ratio 0.5 (1.0-2.7) L Triglycerides Level 82 MG/DL (30-150) Cholesterol Level 90 MG/DL (< 200) LDL Cholesterol 29 mg/dL (<100) HDL Cholesterol 53 MG/DL (40-60) Cholesterol/HDL Ratio 1.7 (3.3-4.4) L Thyroid Stimulating Hormone (TSH) 0.382 uiU/mL (0.358-3.740) Arterial Blood pH 7.207 (7.350-7.450) Arterial Blood Partial Pressure CO2 86.8 mmHg (35.0-45.0) *H Arterial Blood Partial Pressure O2 84.1 mmHg (75.0-100.0) Arterial Blood HCO3 33.7 mmol/L (22.0-26.0) H Arterial Blood Oxygen Saturation 95.2 % (92.0-98.0) Arterial Blood Base Excess 3.5 Lawrence Test Positive Current Medications Medications (Trade) Dose Ordered Sig/Brooks Route PRN Reason Start Time Stop Time Status Last Admin Dose Admin Al Hydroxide/Mg Hydroxide (Mylanta) 30 ml Q4HR PRN ORAL heartburn 06/21/17 13:45 07/21/17 13:44 Albuterol/ Ipratropium (Albuterol/ Ipratropium) 3 ml Q4H PRN HHN Shortness of Breath 06/21/17 14:45 06/26/17 14:44 Atorvastatin Calcium (Lipitor) 40 mg BEDTIME ORAL 06/21/17 21:00 07/21/17 20:59 06/22/17 01:28 Bupropion HCl (Wellbutrin XL) 450 mg DAILY ORAL 06/22/17 09:00 07/22/17 08:59 Cefepime HCl 2 gm/ Sodium Chloride 110 ml @ 220 mls/hr Q24H IVPB 06/21/17 17:00 06/28/17 16:59 06/21/17 18:37 Clopidogrel Bisulfate (Plavix) 75 mg DAILY ORAL 06/22/17 09:00 07/22/17 08:59 Dextrose (Dextrose 50%) STAT PRN IV Hypoglycemia 06/21/17 14:15 07/21/17 14:14 06/21/17 14:32 Diltiazem HCl (Cardizem CD) 120 mg DAILY ORAL 06/22/17 09:00 07/22/17 08:59 Docusate Sodium (Colace) 250 mg TWICE A DAY ORAL 06/21/17 18:00 07/21/17 17:59 Famotidine (Pepcid) 20 mg Q12HR ORAL 06/21/17 18:00 07/21/17 17:59 Gabapentin (Neurontin) 300 mg Q12HR ORAL 06/21/17 21:00 07/21/17 20:59 06/22/17 01:28 Insulin Aspart (NovoLOG) BEFORE MEALS AND HS SUBQ 06/21/17 16:30 07/21/17 16:29 Isosorbide Mononitrate (Imdur) 30 mg DAILY ORAL 06/22/17 09:00 07/22/17 08:59 Methocarbamol (Robaxin) 500 mg Q12HR PRN ORAL MUSCLE SPASM LOWER BACK 06/21/17 13:45 07/21/17 13:44 06/22/17 03:26 Metoprolol Tartrate (Lopressor) 50 mg Q12HR ORAL 06/21/17 21:00 07/21/17 20:59 06/22/17 01:29 Nitroglycerin (Ntg) 0.4 mg Q5M PRN SL Prn Chest Pain 06/21/17 13:45 07/21/17 13:44 Nystatin (Nystop Powder) 1 applic THREE TIMES A DAY TOPIC 06/21/17 20:00 07/21/17 19:59 06/22/17 09:00 Ondansetron HCl (Zofran ODT) 8 mg BID PRN ORAL Nausea & Vomiting 06/21/17 13:45 07/21/17 13:44 Rivastigmine Tartrate (Exelon) 6 mg TWICE A DAY ORAL 06/21/17 18:00 07/21/17 17:59 Sennosides (Senokot) 1 tab DAILY ORAL 06/22/17 09:00 07/22/17 08:59 Sodium Chloride 1,000 ml @ 75 mls/hr [id number] IV 06/21/17 16:00 07/21/17 15:59 06/22/17 04:59 LUIZ ELDRIDGE Jun 22, 2017 12:12
--- NOTE | 2017-06-22 13:40 | Diagnostic Imaging Report ---
Indication: Abdominal pain Technique: Continuous helical transaxial imaging of the abdomen and pelvis was obtained from the lung bases to the pubic symphysis. No intravenous contrast was administered. Coronal 2-D reformats were also obtained. Automatic Exposure Control was utilized. Total Dose length Product (DLP): 1561.[address] Dose Index Volume (CTDIvol): 19.75,19.95 mGy Comparison: none Findings: This study is limited by body habitus. There is posterior basilar consolidation versus atelectasis and trace pleural effusions. There is nodularity of the liver surface and the spleen is enlarged. The aorta is moderately calcified. Cholecystectomy noted. The pancreas is abnormal in appearance with suggestion of peripancreatic soft tissue stranding especially in the area of the head of the pancreas. Correlation with amylase/lipase recommended. The duodenum also appear somewhat prominent which may be secondary phenomenon. There is no obvious hydronephrosis. There are small stones suspected within the lower pole of the left kidney. There is a hypodense mass in the lower pole the left kidney measuring 2.5 cm probably cystic. Diverticula are noted in the colon. No obvious diverticulitis appreciated. The appendix is normal. There is trace ascites present within the pelvis. Garza catheter is noted in good position. Atrophic uterus demonstrated. Posterior to the sacrum there is soft tissue stranding of subcutaneous fat. There are some calcifications in the gluteal regions bilaterally which may be related to prior injection granulomata. Area of abnormal dystrophic calcification with soft tissue distortion noted left paramidline aspect of the back posterior to the upper lumbar spine region. This may posttraumatic on the basis of previous surgery. IMPRESSION: Possible pancreatitis especially in the area of the pancreatic head. Probable secondary duodenitis. Please correlate clinically. Evidence of chronic liver disease/cirrhosis with stigmata of portal hypertension including trace ascites and splenomegaly. Atherosclerotic disease. Diverticulosis of the colon. No definite diverticulitis. Nonobstructive stones within the left kidney. Left renal cysts suspected. Garza catheter Degenerative changes of the spine. Injection granulomata are noted posteriorly. Posterior basilar atelectasis versus pneumonia. Trace effusions. The CT scanner at [facility] is accredited by the [employer] and the scans are performed using dose optimization techniques as appropriate to a performed exam including Automatic Exposure control.
--- NOTE | 2017-06-22 13:42 | Diagnostic Imaging Report ---
Indication:Abdominal pain Technique: Grayscale and duplex Doppler imaging of the abdomen performed. Comparison: None Findings: Liver is heterogeneous in appearance with nodularity of the liver surface. The spleen is 20 cm in size. There is trace ascites. The demonstrated part of the pancreas, aorta and IVC appear unremarkable. There is no biliary ductal dilatation identified. Doppler evaluation of the main portal vein shows patency. Shadowing foci noted in the lower pole the left kidney. Left renal cyst measuring about 2.5 cm demonstrated. No hydronephrosis seen. Evaluation is limited by body habitus Impression: Cirrhosis with stigmata of portal hypertension including splenomegaly and trace ascites. Postcholecystectomy Left renal cyst Nonobstructive stone suspected left kidney. Limited evaluation due to body habitus
--- NOTE | 2017-06-22 15:28 | Nephrology Progress Note ---
Assessment/Plan Problem List: (1) Acute on chronic renal failure (2) Respiratory failure (3) Pneumonia (4) UTI (urinary tract infection) Assessment Renal failure- Has a chronic component with ? superimposed acute- in December 2014 the Cr was 2.2 Acute respiratory failure, ON BIPAP Morbid obesity Diabetic Nephropathy COPD Depression Dementia HypoAlbuminemia ? Nephrotic Syndrom Plan Plan: Slow hydrate pul support 24 h urine CrCl and protein Urine studies keep BP and BS incheck adjust BP meds Subjective ROS Limited/Unobtainable: No Constitutional: Reports: malaise Objective Objective Last 24 Hour Vital Signs Date Time Temp Pulse Resp B/P (MAP) Pulse Ox O2 Delivery O2 Flow Rate FiO2 06/22/17 12:07 55 06/22/17 12:00 99.3 93 22 159/85 100 Venturi Mask 06/22/17 12:00 95 06/22/17 09:43 95 18 99 Facial 55 06/22/17 09:06 Venturi Mask 14.0 55 06/22/17 09:06 98 Venturi Mask 14.0 55 06/22/17 09:00 95 146/77 06/22/17 09:00 95 146/77 06/22/17 09:00 146/77 06/22/17 08:00 100 06/22/17 08:00 98.5 100 24 146/77 97 Venturi Mask 06/22/17 04:00 99.5 94 24 164/79 99 Venturi Mask 06/22/17 04:00 94 06/22/17 01:29 106 152/82 06/22/17 00:00 104 06/22/17 00:00 98.0 106 17 152/82 99 Venturi Mask 06/21/17 20:00 98.2 98 17 133/88 99 Venturi Mask 06/21/17 20:00 101 06/21/17 19:00 Venturi Mask 14.0 55 06/21/17 19:00 98 Venturi Mask 14.0 55 06/21/17 16:51 85 18 100 Facial 30 06/21/17 16:00 98.6 95 18 151/63 95 30 06/21/17 16:00 98.6 95 18 151/63 95 50 06/21/17 16:00 30 Intake and Output 06/21/17 06/22/17 19:00 07:00 Intake Total 75 ml 1145 ml Output Total 450 ml 600 ml Balance -375 ml 545 ml Intake Oral 0 ml IV Total 75 ml 1045 ml Other 100 ml Output Urine Total 600 ml Other 450 ml Laboratory Tests 06/22/17 04:20: White Blood Count 2.8L, Red Blood Count 3.21L, Hemoglobin 10.5L, Hematocrit 33.3L, Mean Corpuscular Volume 104H, Mean Corpuscular Hemoglobin 32.6H, Mean Corpuscular Hemoglobin Concent 31.4L, Red Cell Distribution Width 13.2, Platelet Count 63L, Mean Platelet Volume 7.4, Neutrophils (%) (Auto) , Lymphocytes (%) (Auto) , Monocytes (%) (Auto) , Eosinophils (%) (Auto) , Basophils (%) (Auto) , Differential Total Cells Counted 100, Neutrophils % ( Manual) 88H, Lymphocytes % (Manual) 8L, Monocytes % (Manual) 4, Eosinophils % ( Manual) 0, Basophils % (Manual) 0, Band Neutrophils 0, Platelet Estimate DecreasedL, Platelet Morphology Normal, Hypochromasia 1+, Macrocytosis 1+, Sodium Level 144, Potassium Level 4.8, Chloride Level 109H, Carbon Dioxide Level 34H, Anion Gap 1L, Blood Urea Nitrogen 54H, Creatinine 2.0H, Estimat Glomerular Filtration Rate 25.2, Glucose Level 79, Hemoglobin A1c 6.2H, Uric Acid 8.7H, Calcium Level 8.7, Phosphorus Level 2.9, Magnesium Level 1.4L, Total Bilirubin 0.3, Gamma Glutamyl Transpeptidase 69, Aspartate Amino Transf (AST/ SGOT) 30, Alanine Aminotransferase (ALT/SGPT) 14, Alkaline Phosphatase 47, Troponin I 1.519H, C-Reactive Protein, Quantitative 11.8H, Pro-B-Type Natriuretic Peptide [id number], Total Protein 6.8, Albumin 2.2L, Globulin 4.6, Albumin/Globulin Ratio 0.5L, Triglycerides Level 82, Cholesterol Level 90, LDL Cholesterol 29, HDL Cholesterol 53, Cholesterol/HDL Ratio 1.7L, Thyroid Stimulating Hormone (TSH) 0.382 06/22/17 09:25: Arterial Blood pH 7.207*L, Arterial Blood Partial Pressure CO2 86.8*H, Arterial Blood Partial Pressure O2 84.1, Arterial Blood HCO3 33.7H, Arterial Blood Oxygen Saturation 95.2, Arterial Blood Base Excess 3.5, Lawrence Test Positive Height (Feet): 5 Height (Inches): 6.00 Weight (Pounds): 227 General Appearance: lethargic Cardiovascular: tachycardia Respiratory/Chest: decreased breath sounds Abdomen: distended TALIA ROGERS Jun 22, 2017 15:28
[2017-06-22] MEDS: Morphine Sulfate 2mg/ml Inj IVP PRN ×2 (15:45→21:50)
--- NOTE | 2017-06-22 15:47 | Wound Care Consultation ---
Wound Assessment Wound Assessment #1: Wound Number: 1 Wound Present on Admission: Yes New Wound: No Status Change of Wound: No Wound Location Body Site Modif: right Wound Location Body Site: breast fold Wound Type: erosion Cornel Test: Does not Cornel Percent of Wound [place]/Red: 100 - scattered Wound Drainage Description: Serosanguineous Wound Drainage Amount: Scant Wound Drainage Odor: None/Absent Tissue Surrounding Wound: Erythemic Wound General Appearance: Reddened, Draining Wound Assessment #2: Wound Number: 2 Wound Present on Admission: Yes New Wound: No Status Change of Wound: No Wound Location Body Site: sacral Wound Type: pressure ulcer Cornel Test: Does not Cornel Pressure Ulcer Stage: Deep Tissue Injury - suspected Wound Thickness: Full Thickness Wound Length: 7.0 Wound Width: 5.5 Wound Depth: utd Percent of Wound [place]/Red: 50 - deep red Percent of Wound Purple/Maroon: 50 Other Colors Identified: noted engel, hyperpigmentated area. Wound Drainage Amount: None Wound Drainage Odor: None/Absent Tissue Surrounding Wound: Intact Wound General Appearance: Reddened Wound Assessment #3: Wound Number: 3 Wound Present on Admission: Yes New Wound: No Status Change of Wound: No Wound Location Body Site Modif: mid Wound Location Body Site: back Wound Type: scar - full thickness scar tissue Cornel Test: Does not Cornel Wound Thickness: Full Thickness Wound Length: 3.0 Wound Width: 8.0 Wound Depth: utd Percent of Wound [place]/Red: 100 Wound Drainage Amount: None Wound Drainage Odor: None/Absent Tissue Surrounding Wound: Intact Wound General Appearance: Reddened Wound Assessment #4: Wound Number: 4 Wound Present on Admission: Yes New Wound: No Status Change of Wound: No Wound Location Body Site Modif: left Wound Location Body Site: toe Wound Type: pressure ulcer Cornel Test: Does not Cornel Pressure Ulcer Stage: I Wound Length: 2.0 Wound Width: 2.0 Percent of Wound [place]/Red: 100 Wound Drainage Amount: None Wound Drainage Odor: None/Absent Tissue Surrounding Wound: Erythemic Wound General Appearance: Reddened Wound Assessment #5: Wound Number: 5 Wound Present on Admission: Yes New Wound: No Status Change of Wound: No Wound Location Body Site Modif: left, dorsal - aspect of foot Wound Type: pressure ulcer Cornel Test: Does not Cornel Pressure Ulcer Stage: I Wound Length: 2.0 Wound Width: 4.0 Wound Depth: utd Percent of Wound [place]/Red: 100 Wound Drainage Amount: None Wound Drainage Odor: None/Absent Tissue Surrounding Wound: Intact Wound General Appearance: Reddened Wound Assessment #6: Wound Number: 6 Wound Present on Admission: Yes New Wound: No Status Change of Wound: No Wound Location Body Site Modif: left Wound Location Body Site: heel Wound Type: pressure ulcer Cornel Test: Does not Cornel Pressure Ulcer Stage: I Wound Length: 4.0 Wound Width: 4.0 Wound Depth: utd Percent of Wound [place]/Red: 100 Wound Drainage Amount: None Wound Drainage Odor: None/Absent Tissue Surrounding Wound: Intact Wound General Appearance: Reddened Wound Comment #1 Right breast fold erosion. #2 Mid Sacral suspected deep tissue injury. #3 Mid back full thickness scar tissue. #4 Left 5th toe stage 1 pressure ulcer. #5 Left dorsal aspect of foot stage 1 pressure ulcer #6 Left heel stage 1 pressure ulcer. Recommendation. -Local wound care as ordered. -Turn and reposition. -Keep clean and dry. -Optimize nutrition. -Low air loss overlay. -Heel protectors. -Offload affected sites and heels. -Asses and notify MD for any further change of condition to skin. RUPERTO COWART Jun 22, 2017 15:47
[2017-06-22 16:00] VITALS: BP 162/81
--- NOTE | 2017-06-22 16:42 | Cardiac Electrophysiology PN ---
Subjective Subjective Dictated [id number] Objective Last 24 Hour Vital Signs Date Time Temp Pulse Resp B/P (MAP) Pulse Ox O2 Delivery O2 Flow Rate FiO2 06/22/17 15:29 94 06/22/17 12:07 55 06/22/17 12:00 99.3 93 22 159/85 100 Venturi Mask 06/22/17 12:00 95 06/22/17 09:43 95 18 99 Facial 55 06/22/17 09:06 Venturi Mask 14.0 55 06/22/17 09:06 98 Venturi Mask 14.0 55 06/22/17 09:00 95 146/77 06/22/17 09:00 95 146/77 06/22/17 09:00 146/77 06/22/17 08:00 100 06/22/17 08:00 98.5 100 24 146/77 97 Venturi Mask 06/22/17 04:00 99.5 94 24 164/79 99 Venturi Mask 06/22/17 04:00 94 06/22/17 01:29 106 152/82 06/22/17 00:00 104 06/22/17 00:00 98.0 106 17 152/82 99 Venturi Mask 06/21/17 20:00 98.2 98 17 133/88 99 Venturi Mask 06/21/17 20:00 101 06/21/17 19:00 Venturi Mask 14.0 55 06/21/17 19:00 98 Venturi Mask 14.0 55 06/21/17 16:51 85 18 100 Facial 30 Intake and Output 06/21/17 06/22/17 19:00 07:00 Intake Total 75 ml 1145 ml Output Total 450 ml 600 ml Balance -375 ml 545 ml Intake Oral 0 ml IV Total 75 ml 1045 ml Other 100 ml Output Urine Total 600 ml Other 450 ml Laboratory Tests Test 06/22/17 04:20 06/22/17 09:25 White Blood Count 2.8 K/UL (4.8-10.8) L Red Blood Count 3.21 M/UL (4.20-5.40) L Hemoglobin 10.5 G/DL (12.0-16.0) L Hematocrit 33.3 % (37.0-47.0) L Mean Corpuscular Volume 104 FL (80-99) H Mean Corpuscular Hemoglobin 32.6 PG (27.0-31.0) H Mean Corpuscular Hemoglobin Concent 31.4 G/DL (32.0-36.0) L Red Cell Distribution Width 13.2 % (11.6-14.8) Platelet Count 63 K/UL (150-450) L Mean Platelet Volume 7.4 FL (6.5-10.1) Neutrophils (%) (Auto) % (45.0-75.0) Lymphocytes (%) (Auto) % (20.0-45.0) Monocytes (%) (Auto) % (1.0-10.0) Eosinophils (%) (Auto) % (0.0-3.0) Basophils (%) (Auto) % (0.0-2.0) Differential Total Cells Counted 100 Neutrophils % (Manual) 88 % (45-75) H Lymphocytes % (Manual) 8 % (20-45) L Monocytes % (Manual) 4 % (1-10) Eosinophils % (Manual) 0 % (0-3) Basophils % (Manual) 0 % (0-2) Band Neutrophils 0 % (0-8) Platelet Estimate Decreased L Platelet Morphology Normal Hypochromasia 1+ Macrocytosis 1+ Sodium Level 144 MMOL/L (136-145) Potassium Level 4.8 MMOL/L (3.5-5.1) Chloride Level 109 MMOL/L (98-107) H Carbon Dioxide Level 34 MMOL/L (21-32) H Anion Gap 1 mmol/L (5-15) L Blood Urea Nitrogen 54 mg/dL (7-18) H Creatinine 2.0 MG/DL (0.55-1.30) H Estimat Glomerular Filtration Rate 25.2 mL/min (>60) Glucose Level 79 MG/DL (74-106) Hemoglobin A1c 6.2 % (4.3-6.0) H Uric Acid 8.7 MG/DL (2.6-7.2) H Calcium Level 8.7 MG/DL (8.5-10.1) Phosphorus Level 2.9 MG/DL (2.5-4.9) Magnesium Level 1.4 MG/DL (1.8-2.4) L Total Bilirubin 0.3 MG/DL (0.2-1.0) Gamma Glutamyl Transpeptidase 69 U/L (5-85) Aspartate Amino Transf (AST/SGOT) 30 U/L (15-37) Alanine Aminotransferase (ALT/SGPT) 14 U/L (12-78) Alkaline Phosphatase 47 U/L (46-116) Troponin I 1.519 ng/mL (0.000-0.056) C-Reactive Protein, Quantitative 11.8 mg/dL (0.00-0.90) H Pro-B-Type Natriuretic Peptide 73229 pg/mL (0-125) H Total Protein 6.8 G/DL (6.4-8.2) Albumin 2.2 G/DL (3.4-5.0) L Globulin 4.6 g/dL Albumin/Globulin Ratio 0.5 (1.0-2.7) L Triglycerides Level 82 MG/DL (30-150) Cholesterol Level 90 MG/DL (< 200) LDL Cholesterol 29 mg/dL (<100) HDL Cholesterol 53 MG/DL (40-60) Cholesterol/HDL Ratio 1.7 (3.3-4.4) L Thyroid Stimulating Hormone (TSH) 0.382 uiU/mL (0.358-3.740) Arterial Blood pH 7.207 (7.350-7.450) Arterial Blood Partial Pressure CO2 86.8 mmHg (35.0-45.0) *H Arterial Blood Partial Pressure O2 84.1 mmHg (75.0-100.0) Arterial Blood HCO3 33.7 mmol/L (22.0-26.0) H Arterial Blood Oxygen Saturation 95.2 % (92.0-98.0) Arterial Blood Base Excess 3.5 Lawrence Test Positive Microbiology Date/Time Source Procedure Growth Status 06/20/17 21:30 Blood Blood Culture - Preliminary NO GROWTH AFTER 24 HOURS Resulted 06/20/17 21:15 Blood Blood Culture - Preliminary NO GROWTH AFTER 24 HOURS Resulted 06/20/17 21:35 Nasal Nares Influenza Types A,B Antigen (JEY) - Final Complete 06/21/17 00:00 Urine,Clean Catch Urine Culture - Preliminary Streptococcus Species Resulted LE BENSON Jun 22, 2017 16:42
[2017-06-22] MEDS: Imdur 30mg tab ORAL SCH (17:10)
[2017-06-22] MEDS: Cefepime HCl 2 GM in NS 110 ML IVPB SCH (17:14)
--- NOTE | 2017-06-22 18:00 | Consultation ---
DATE OF CONSULTATION: 06/22/2017 CARDIOLOGY CONSULTATION CONSULTING PHYSICIAN: Travis Frazier M.D. ATTENDING/REFERRING PHYSICIAN: Phoenix Muñoz M.D. REASON FOR CONSULTATION: Management of hypertension, elevated troponin. HISTORY OF PRESENT ILLNESS: The patient is a 62-year-old lady with history of hypertension, type 2 diabetes, chronic kidney disease, and anemia as well as history of morbid obesity, who was admitted to the hospital with COPD exacerbation and hypercapnic respiratory failure. The patient was on BiPAP. The patient subsequently refused BiPAP. The patient is now asking to be made DNR. The patient also was found to have [id number] myocardial infarction with elevated troponin and cardiology consultation was requested for further evaluation and management. REVIEW OF SYSTEMS: Negative other than what was mentioned in history of present illness. PAST MEDICAL HISTORY: As mentioned above. FAMILY HISTORY: Noncontributory. SOCIAL HISTORY: Denies smoking, drinking alcohol, or using any drugs. ALLERGIES: She is allergic to codeine. PHYSICAL EXAMINATION: VITAL SIGNS: Blood pressure is 159/85, pulse 95, respirations 18, temperature 99.3. HEAD AND NECK: Showed no JVD. LUNGS: Decreased breath sounds. CARDIOVASCULAR: Distant heart sounds with no gallop or murmur. ABDOMEN: Morbidly obese. EXTREMITIES: No pitting edema. LABORATORY AND DIAGNOSTIC DATA: Her EKG shows sinus rhythm with nonspecific intraventricular conduction delay and nonspecific T-wave abnormalities. Laboratories show white count of 2.8, hemoglobin 10.5, hematocrit 33.3, and platelet count is only 63,000. Sodium 144, potassium 4.8, BUN of 54, creatinine 2, and glucose of 79. Troponin was 0.779 and 1.519. ASSESSMENT AND PLAN: 1. Ehf-[id number] myocardial infarction and troponin of 0.78 . The patient does not have any chest pain. The patient also has renal failure. The patient does not want any invasive procedure and wants to be Do Not Resuscitate at this point. We will try to treat the patient medically with aspirin, Plavix, beta-moon, and Imdur. The patient is already on metoprolol 50 mg b.i.d. and Lipitor as well. 2. Morbid obesity. 3. Hypertension, on Cardizem and Toprol. 4. Pancytopenia. Further evaluation by Dr. Muñoz including platelet count of 50,000. 5. Hypercarbic respiratory failure. The patient is refusing BiPAP. 6. Do Not Resuscitate. Thank you very much, Dr. Muñoz, for allowing me to participate in the care of this patient. Please do not hesitate to contact me for any questions regarding my evaluation. Travis Frazier M.D. DR: Kana JOB#: [id number] CC:
[2017-06-22 20:00] VITALS: BP 135/69
--- NOTE | 2017-06-22 21:51 | General Progress Note ---
Assessment/Plan Assessment/Plan ASSESSMENT AND RECOMMENDATIONS: 1. Pancytopenia, likely due to liver disease/cirrhosis. --> continue to monitor, ANC goal is above 1000 2. Anemia secondary to chronic kidney disease. 3. Elevated troponin, non-ST elevation myocardial infarction. Cardiology service following. 4. Chronic obstructive pulmonary disease exacerbation versus pneumonia. 5. She is on BiPAP currently and is DNR. On antibiotics as per Pulmonary team. 6. Chronic kidney disease, being seen by Dr. Perez, superimposed acute kidney injury on chronic kidney disease. Subjective Allergies: Coded Allergies: CODEINE (Unverified Allergy, Unknown, 12/31/14) FLURAZEPAM (Unverified Allergy, Unknown, 12/31/14) PENICILLINS (Unverified Allergy, Unknown, 12/31/14) All Systems: reviewed and negative except above Subjective NAD Objective Last 24 Hour Vital Signs Date Time Temp Pulse Resp B/P (MAP) Pulse Ox O2 Delivery O2 Flow Rate FiO2 06/22/17 20:00 98.3 97 25 135/69 100 Venturi Mask 06/22/17 19:09 Venturi Mask 14.0 55 06/22/17 19:09 99 Venturi Mask 14.0 55 06/22/17 17:10 162/81 06/22/17 16:00 99.5 97 22 162/81 99 Venturi Mask 06/22/17 15:29 94 06/22/17 12:07 55 06/22/17 12:00 99.3 93 22 159/85 100 Venturi Mask 06/22/17 12:00 95 06/22/17 09:43 95 18 99 Facial 55 06/22/17 09:06 Venturi Mask 14.0 55 06/22/17 09:06 98 Venturi Mask 14.0 55 06/22/17 09:00 95 146/77 06/22/17 09:00 95 146/77 06/22/17 09:00 146/77 06/22/17 08:00 100 06/22/17 08:00 98.5 100 24 146/77 97 Venturi Mask 06/22/17 04:00 99.5 94 24 164/79 99 Venturi Mask 06/22/17 04:00 94 06/22/17 01:29 106 152/82 06/22/17 00:00 104 06/22/17 00:00 98.0 106 17 152/82 99 Venturi Mask Intake and Output 06/21/17 06/22/17 19:00 07:00 Intake Total 75 ml 1145 ml Output Total 450 ml 600 ml Balance -375 ml 545 ml Intake Oral 0 ml IV Total 75 ml 1045 ml Other 100 ml Output Urine Total 600 ml Other 450 ml Laboratory Tests 06/22/17 04:20: White Blood Count 2.8L, Red Blood Count 3.21L, Hemoglobin 10.5L, Hematocrit 33.3L, Mean Corpuscular Volume 104H, Mean Corpuscular Hemoglobin 32.6H, Mean Corpuscular Hemoglobin Concent 31.4L, Red Cell Distribution Width 13.2, Platelet Count 63L, Mean Platelet Volume 7.4, Neutrophils (%) (Auto) , Lymphocytes (%) (Auto) , Monocytes (%) (Auto) , Eosinophils (%) (Auto) , Basophils (%) (Auto) , Differential Total Cells Counted 100, Neutrophils % ( Manual) 88H, Lymphocytes % (Manual) 8L, Monocytes % (Manual) 4, Eosinophils % ( Manual) 0, Basophils % (Manual) 0, Band Neutrophils 0, Platelet Estimate DecreasedL, Platelet Morphology Normal, Hypochromasia 1+, Macrocytosis 1+, Sodium Level 144, Potassium Level 4.8, Chloride Level 109H, Carbon Dioxide Level 34H, Anion Gap 1L, Blood Urea Nitrogen 54H, Creatinine 2.0H, Estimat Glomerular Filtration Rate 25.2, Glucose Level 79, Hemoglobin A1c 6.2H, Uric Acid 8.7H, Calcium Level 8.7, Phosphorus Level 2.9, Magnesium Level 1.4L, Total Bilirubin 0.3, Gamma Glutamyl Transpeptidase 69, Aspartate Amino Transf (AST/ SGOT) 30, Alanine Aminotransferase (ALT/SGPT) 14, Alkaline Phosphatase 47, Troponin I 1.519H, C-Reactive Protein, Quantitative 11.8H, Pro-B-Type Natriuretic Peptide 75942A, Total Protein 6.8, Albumin 2.2L, Globulin 4.6, Albumin/Globulin Ratio 0.5L, Triglycerides Level 82, Cholesterol Level 90, LDL Cholesterol 29, HDL Cholesterol 53, Cholesterol/HDL Ratio 1.7L, Thyroid Stimulating Hormone (TSH) 0.382 06/22/17 09:25: Arterial Blood pH 7.207*L, Arterial Blood Partial Pressure CO2 86.8*H, Arterial Blood Partial Pressure O2 84.1, Arterial Blood HCO3 33.7H, Arterial Blood Oxygen Saturation 95.2, Arterial Blood Base Excess 3.5, Lawrence Test Positive Height (Feet): 5 Height (Inches): 6.00 Weight (Pounds): 227 General Appearance: no apparent distress EENT: normal ENT inspection Neck: normal alignment Extremities: normal range of motion Neurologic: 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
[2017-06-23] VITALS: BP 135/69
[2017-06-23 04:00] VITALS: BP 149/72
[2017-06-23] MEDS: Morphine Sulfate 2mg/ml Inj IVP PRN ×3 (04:06→20:32)
[2017-06-23 05:58] LABS: HEMATOCRIT 35.2 % (37.0-47.0); HEMOGLOBIN 11.1 G/DL (12.0-16.0); MEAN CORPUSCULAR VOLUME 104 FL (80-99); PLATELET COUNT 62 K/UL (150-450); RED CELL DISTRIBUTION WIDTH 13.3 % (11.6-14.8); WHITE BLOOD COUNT 2.8 K/UL (4.8-10.8)
[2017-06-23 06:20] LABS: ALANINE AMINOTRANSFERASE 15 U/L (12-78); ALBUMIN 2.2 G/DL (3.4-5.0); ALBUMIN/GLOBULIN RATIO 0.5 (1.0-2.7); ALKALINE PHOSPHATASE 49 U/L (46-116); ANION GAP 6 mmol/L (5-15); ASPARTATE AMINO TRANSFERASE 42 U/L (15-37); BILIRUBIN,TOTAL 0.4 MG/DL (0.2-1.0); BLOOD UREA NITROGEN 55 mg/dL (7-18); CALCIUM 8.4 MG/DL (8.5-10.1); CARBON DIOXIDE 29 MMOL/L (21-32); CHLORIDE 110 MMOL/L (98-107); CREATININE 1.7 MG/DL (0.55-1.30); POTASSIUM 4.8 MMOL/L (3.5-5.1); SODIUM 145 MMOL/L (136-145)
[2017-06-23] MEDS: NovoLOG Insulin Flexpen SUBQ SCH ×4 (06:30→20:32)
[2017-06-23 08:00] VITALS: BP 150/82
--- NOTE | 2017-06-23 08:24 | Pulmonology Progress Note ---
Assessment/Plan Assessment/Plan IMPRESSION: 1. Acute on chronic respiratory failure, 2. Profound hypercapnia. 3. Pleural effusion. 4. Possible pulmonary edema. 5. Renal failure. PLAN BIPAP refused no intervention available does not want intubation comfort measures impression, plan, and exam edited and reviewed in detail care discussed with RN Subjective Allergies: Coded Allergies: CODEINE (Unverified Allergy, Unknown, 12/31/14) FLURAZEPAM (Unverified Allergy, Unknown, 12/31/14) PENICILLINS (Unverified Allergy, Unknown, 12/31/14) Subjective off bipap and refusing on oxygen at present per patient, does not want anything done Objective Last 24 Hour Vital Signs Date Time Temp Pulse Resp B/P (MAP) Pulse Ox O2 Delivery O2 Flow Rate FiO2 06/23/17 04:00 111 06/23/17 04:00 98.2 99 20 149/72 99 Venturi Mask 55 06/23/17 00:00 98 06/23/17 00:00 98.1 100 22 135/69 100 Venturi Mask 55 06/22/17 20:00 98.3 97 25 135/69 100 Venturi Mask 06/22/17 20:00 96 06/22/17 19:09 Venturi Mask 14.0 55 06/22/17 19:09 99 Venturi Mask 14.0 55 06/22/17 17:10 162/81 06/22/17 16:00 99.5 97 22 162/81 99 Venturi Mask 06/22/17 15:29 94 06/22/17 12:07 55 06/22/17 12:00 99.3 93 22 159/85 100 Venturi Mask 06/22/17 12:00 95 06/22/17 09:43 95 18 99 Facial 55 06/22/17 09:06 Venturi Mask 14.0 55 06/22/17 09:06 98 Venturi Mask 14.0 55 06/22/17 09:00 95 146/77 06/22/17 09:00 95 146/77 06/22/17 09:00 146/77 Intake and Output 06/22/17 06/23/17 19:00 07:00 Intake Total 260 ml 600 ml Output Total 800 ml 550 ml Balance -540 ml 50 ml IV Total 260 ml 600 ml Output Urine Total 800 ml 550 ml Objective GENERAL: The patient is an ill-appearing female. The patient is altered at present. HEENT: Fairly negative. NECK: Supple. LUNGS: With coarse breath sounds. Reduced overall. CARDIAC: S1 and S2. Regular rate and rhythm. ABDOMEN: Soft and nontender. EXTREMITIES: Without cyanosis. Microbiology Date/Time Source Procedure Growth Status 06/20/17 21:30 Blood Blood Culture - Preliminary NO GROWTH AFTER 48 HOURS Resulted 06/20/17 21:15 Blood Blood Culture - Preliminary NO GROWTH AFTER 48 HOURS Resulted 06/20/17 21:35 Nasal Nares Influenza Types A,B Antigen (JEY) - Final Complete 06/21/17 00:00 Urine,Clean Catch Urine Culture - Preliminary Streptococcus Species Resulted Laboratory Tests 06/22/17 09:25: Arterial Blood pH 7.207*L, Arterial Blood Partial Pressure CO2 86.8*H, Arterial Blood Partial Pressure O2 84.1, Arterial Blood HCO3 33.7H, Arterial Blood Oxygen Saturation 95.2, Arterial Blood Base Excess 3.5, Lawrence Test Positive 06/23/17 03:45: White Blood Count 2.8L, Red Blood Count 3.40L, Hemoglobin 11.1L, Hematocrit 35.2L, Mean Corpuscular Volume 104H, Mean Corpuscular Hemoglobin 32.7H, Mean Corpuscular Hemoglobin Concent 31.6L, Red Cell Distribution Width 13.3, Platelet Count 62L, Mean Platelet Volume 9.5, Neutrophils (%) (Auto) , Lymphocytes (%) (Auto) , Monocytes (%) (Auto) , Eosinophils (%) (Auto) , Basophils (%) (Auto) , Neutrophils % (Manual) [Pending], Lymphocytes % (Manual) [Pending], Platelet Estimate [Pending], Platelet Morphology [Pending], Sodium Level 145, Potassium Level 4.8, Chloride Level 110H, Carbon Dioxide Level 29, Anion Gap 6, Blood Urea Nitrogen 55H, Creatinine 1.7H, Estimat Glomerular Filtration Rate 30.4, Glucose Level 84, Calcium Level 8.4L, Total Bilirubin 0.4 , Aspartate Amino Transf (AST/SGOT) 42H, Alanine Aminotransferase (ALT/SGPT) 15 , Alkaline Phosphatase 49, Total Protein 6.8, Albumin 2.2L, Globulin 4.6, Albumin/Globulin Ratio 0.5L Current Medications Medications (Trade) Dose Ordered Sig/Brooks Route PRN Reason Start Time Stop Time Status Last Admin Dose Admin Al Hydroxide/Mg Hydroxide (Mylanta) 30 ml Q4HR PRN ORAL heartburn 06/21/17 13:45 07/21/17 13:44 Albuterol/ Ipratropium (Albuterol/ Ipratropium) 3 ml Q4H PRN HHN Shortness of Breath 06/21/17 14:45 06/26/17 14:44 Atorvastatin Calcium (Lipitor) 40 mg BEDTIME ORAL 06/21/17 21:00 07/21/17 20:59 06/22/17 01:28 Bupropion HCl (Wellbutrin XL) 450 mg DAILY ORAL 06/22/17 09:00 07/22/17 08:59 Cefepime HCl 2 gm/ Sodium Chloride 110 ml @ 220 mls/hr Q24H IVPB 06/21/17 17:00 06/28/17 16:59 06/22/17 17:14 Clopidogrel Bisulfate (Plavix) 75 mg DAILY ORAL 06/22/17 09:00 07/22/17 08:59 Dextrose (Dextrose 50%) STAT PRN IV Hypoglycemia 06/21/17 14:15 07/21/17 14:14 06/21/17 14:32 Diltiazem HCl (Cardizem CD) 240 mg DAILY ORAL 06/23/17 09:00 07/23/17 08:59 Docusate Sodium (Colace) 250 mg TWICE A DAY ORAL 06/21/17 18:00 07/21/17 17:59 Famotidine (Pepcid) 20 mg Q12HR ORAL 06/21/17 18:00 07/21/17 17:59 Gabapentin (Neurontin) 300 mg Q12HR ORAL 06/21/17 21:00 07/21/17 20:59 06/22/17 01:28 Insulin Aspart (NovoLOG) BEFORE MEALS AND HS SUBQ 06/21/17 16:30 07/21/17 16:29 Isosorbide Mononitrate (Imdur) 30 mg BID ORAL 06/22/17 18:00 07/22/17 08:59 Methocarbamol (Robaxin) 500 mg Q12HR PRN ORAL MUSCLE SPASM LOWER BACK 06/21/17 13:45 07/21/17 13:44 06/22/17 03:26 Metoprolol Tartrate (Lopressor) 50 mg Q12HR ORAL 06/21/17 21:00 07/21/17 20:59 06/22/17 01:29 Morphine Sulfate (Morphine Sulfate) 1 mg Q6H PRN IVP Severe Pain (Pain Scale 7-10) 06/22/17 15:30 06/29/17 15:29 06/23/17 04:06 Nitroglycerin (Ntg) 0.4 mg Q5M PRN SL Prn Chest Pain 06/21/17 13:45 07/21/17 13:44 Nystatin (Nystop Powder) 1 applic THREE TIMES A DAY TOPIC 06/21/17 20:00 07/21/17 19:59 06/22/17 17:13 Ondansetron HCl (Zofran ODT) 8 mg BID PRN ORAL Nausea & Vomiting 06/21/17 13:45 07/21/17 13:44 Rivastigmine Tartrate (Exelon) 6 mg TWICE A DAY ORAL 06/21/17 18:00 07/21/17 17:59 Sennosides (Senokot) 1 tab DAILY ORAL 06/22/17 09:00 07/22/17 08:59 Sodium Chloride 1,000 ml @ 50 mls/hr Q20H IV 06/22/17 16:00 07/22/17 15:59 06/22/17 17:16 GLENN MILLARD Jun 23, 2017 08:24
--- NOTE | 2017-06-23 08:50 | Infectious Diseases Prog Note ---
Assessment/Plan Assessment/Plan A: Pneumonia UTI COPD Hypercapnic respiratory failure Chronic kidney disease Morbid obesity DM PCN allergy P; Continue Cefepime Refused BIPAP & intubation will f/u cultures Subjective Constitutional: Reports: other - moaning Respiratory: Reports: shortness of breath Allergies: Coded Allergies: CODEINE (Unverified Allergy, Unknown, 12/31/14) FLURAZEPAM (Unverified Allergy, Unknown, 12/31/14) PENICILLINS (Unverified Allergy, Unknown, 12/31/14) Objective Vital Signs Last 24 Hour Vital Signs Date Time Temp Pulse Resp B/P (MAP) Pulse Ox O2 Delivery O2 Flow Rate FiO2 06/23/17 08:23 Venturi Mask 10.0 45 06/23/17 08:23 100 Venturi Mask 10.0 45 06/23/17 04:00 111 06/23/17 04:00 98.2 99 20 149/72 99 Venturi Mask 55 06/23/17 00:00 98 06/23/17 00:00 98.1 100 22 135/69 100 Venturi Mask 55 06/22/17 20:00 98.3 97 25 135/69 100 Venturi Mask 06/22/17 20:00 96 06/22/17 19:09 Venturi Mask 14.0 55 06/22/17 19:09 99 Venturi Mask 14.0 55 06/22/17 17:10 162/81 06/22/17 16:00 99.5 97 22 162/81 99 Venturi Mask 06/22/17 15:29 94 06/22/17 12:07 55 06/22/17 12:00 99.3 93 22 159/85 100 Venturi Mask 06/22/17 12:00 95 06/22/17 09:43 95 18 99 Facial 55 06/22/17 09:06 Venturi Mask 14.0 55 06/22/17 09:06 98 Venturi Mask 14.0 55 06/22/17 09:00 95 146/77 06/22/17 09:00 95 146/77 06/22/17 09:00 [id number] Height (Feet): 5 Height (Inches): 6.00 Weight (Pounds): 333 HEENT: mucous membranes moist Respiratory/Chest: respiratory distress, decreased breath sounds Cardiovascular: tachycardia Abdomen: soft, non tender Extremities: no edema Neurologic/Psychiatric: other - awake Microbiology Date/Time Source Procedure Growth Status 06/20/17 21:30 Blood Blood Culture - Preliminary NO GROWTH AFTER 48 HOURS Resulted 06/20/17 21:15 Blood Blood Culture - Preliminary NO GROWTH AFTER 48 HOURS Resulted 06/20/17 21:35 Nasal Nares Influenza Types A,B Antigen (JEY) - Final Complete 06/21/17 00:00 Urine,Clean Catch Urine Culture - Preliminary Streptococcus Species Resulted Laboratory Tests Test 06/22/17 09:25 06/23/17 03:45 Arterial Blood pH 7.207 (7.350-7.450) Arterial Blood Partial Pressure CO2 86.8 mmHg (35.0-45.0) *H Arterial Blood Partial Pressure O2 84.1 mmHg (75.0-100.0) Arterial Blood HCO3 33.7 mmol/L (22.0-26.0) H Arterial Blood Oxygen Saturation 95.2 % (92.0-98.0) Arterial Blood Base Excess 3.5 Lawrence Test Positive White Blood Count 2.8 K/UL (4.8-10.8) L Red Blood Count 3.40 M/UL (4.20-5.40) L Hemoglobin 11.1 G/DL (12.0-16.0) L Hematocrit 35.2 % (37.0-47.0) L Mean Corpuscular Volume 104 FL (80-99) H Mean Corpuscular Hemoglobin 32.7 PG (27.0-31.0) H Mean Corpuscular Hemoglobin Concent 31.6 G/DL (32.0-36.0) L Red Cell Distribution Width 13.3 % (11.6-14.8) Platelet Count 62 K/UL (150-450) L Mean Platelet Volume 9.5 FL (6.5-10.1) Neutrophils (%) (Auto) % (45.0-75.0) Lymphocytes (%) (Auto) % (20.0-45.0) Monocytes (%) (Auto) % (1.0-10.0) Eosinophils (%) (Auto) % (0.0-3.0) Basophils (%) (Auto) % (0.0-2.0) Neutrophils % (Manual) Pending Lymphocytes % (Manual) Pending Platelet Estimate Pending Platelet Morphology Pending Sodium Level 145 MMOL/L (136-145) Potassium Level 4.8 MMOL/L (3.5-5.1) Chloride Level 110 MMOL/L (98-107) H Carbon Dioxide Level 29 MMOL/L (21-32) Anion Gap 6 mmol/L (5-15) Blood Urea Nitrogen 55 mg/dL (7-18) H Creatinine 1.7 MG/DL (0.55-1.30) H Estimat Glomerular Filtration Rate 30.4 mL/min (>60) Glucose Level 84 MG/DL (74-106) Calcium Level 8.4 MG/DL (8.5-10.1) L Total Bilirubin 0.4 MG/DL (0.2-1.0) Aspartate Amino Transf (AST/SGOT) 42 U/L (15-37) H Alanine Aminotransferase (ALT/SGPT) 15 U/L (12-78) Alkaline Phosphatase 49 U/L (46-116) Total Protein 6.8 G/DL (6.4-8.2) Albumin 2.2 G/DL (3.4-5.0) L Globulin 4.6 g/dL Albumin/Globulin Ratio 0.5 (1.0-2.7) L Current Medications Medications (Trade) Dose Ordered Sig/Brooks Route PRN Reason Start Time Stop Time Status Last Admin Dose Admin Al Hydroxide/Mg Hydroxide (Mylanta) 30 ml Q4HR PRN ORAL heartburn 06/21/17 13:45 07/21/17 13:44 Albuterol/ Ipratropium (Albuterol/ Ipratropium) 3 ml Q4H PRN HHN Shortness of Breath 06/21/17 14:45 06/26/17 14:44 Atorvastatin Calcium (Lipitor) 40 mg BEDTIME ORAL 06/21/17 21:00 07/21/17 20:59 06/22/17 01:28 Bupropion HCl (Wellbutrin XL) 450 mg DAILY ORAL 06/22/17 09:00 07/22/17 08:59 Cefepime HCl 2 gm/ Sodium Chloride 110 ml @ 220 mls/hr Q24H IVPB 06/21/17 17:00 06/28/17 16:59 06/22/17 17:14 Clopidogrel Bisulfate (Plavix) 75 mg DAILY ORAL 06/22/17 09:00 07/22/17 08:59 Dextrose (Dextrose 50%) STAT PRN IV Hypoglycemia 06/21/17 14:15 07/21/17 14:14 06/21/17 14:32 Diltiazem HCl (Cardizem CD) 240 mg DAILY ORAL 06/23/17 09:00 07/23/17 08:59 Docusate Sodium (Colace) 250 mg TWICE A DAY ORAL 06/21/17 18:00 07/21/17 17:59 Famotidine (Pepcid) 20 mg Q12HR ORAL 06/21/17 18:00 07/21/17 17:59 Gabapentin (Neurontin) 300 mg Q12HR ORAL 06/21/17 21:00 07/21/17 20:59 06/22/17 01:28 Insulin Aspart (NovoLOG) BEFORE MEALS AND HS SUBQ 06/21/17 16:30 07/21/17 16:29 Isosorbide Mononitrate (Imdur) 30 mg BID ORAL 06/22/17 18:00 07/22/17 08:59 Methocarbamol (Robaxin) 500 mg Q12HR PRN ORAL MUSCLE SPASM LOWER BACK 06/21/17 13:45 07/21/17 13:44 06/22/17 03:26 Metoprolol Tartrate (Lopressor) 50 mg Q12HR ORAL 06/21/17 21:00 07/21/17 20:59 06/22/17 01:29 Morphine Sulfate (Morphine Sulfate) 1 mg Q6H PRN IVP Severe Pain (Pain Scale 7-10) 06/22/17 15:30 06/29/17 15:29 06/23/17 04:06 Nitroglycerin (Ntg) 0.4 mg Q5M PRN SL Prn Chest Pain 06/21/17 13:45 07/21/17 13:44 Nystatin (Nystop Powder) 1 applic THREE TIMES A DAY TOPIC 06/21/17 20:00 07/21/17 19:59 06/22/17 17:13 Ondansetron HCl (Zofran ODT) 8 mg BID PRN ORAL Nausea & Vomiting 06/21/17 13:45 07/21/17 13:44 Rivastigmine Tartrate (Exelon) 6 mg TWICE A DAY ORAL 06/21/17 18:00 07/21/17 17:59 Sennosides (Senokot) 1 tab DAILY ORAL 06/22/17 09:00 07/22/17 08:59 Sodium Chloride 1,000 ml @ 50 mls/hr Q20H IV 06/22/17 16:00 07/22/17 15:59 06/22/17 17:16 LUIZ ELDRIDGE Jun 23, 2017 08:50
[2017-06-23] MEDS: Metoprolol Tartrate 50mg tab ORAL SCH ×2 (09:00→20:31)
[2017-06-23] MEDS ORDERED: dilTIAZem HCl CD 180mg cap ORAL SCH (09:00)
[2017-06-23] MEDS: Imdur 30mg tab ORAL SCH ×2 (09:00→18:00)
[2017-06-23] MEDS: BuPROPion XL 150mg tab ORAL SCH (09:00)
[2017-06-23] MEDS: Exelon 1.5mg cap ORAL SCH ×2 (09:00→18:00)
[2017-06-23] MEDS: Sennosides 8.6mg ORAL SCH (09:00)
[2017-06-23] MEDS ORDERED: dilTIAZem HCl CD 240mg cap ORAL SCH (09:00)
[2017-06-23] MEDS: Docusate 250mg cap ORAL SCH ×2 (09:00→18:00)
[2017-06-23] MEDS: Nystatin Powder 100,000 units/gm 15gm TOPIC SCH ×3 (09:36→18:41)
--- NOTE | 2017-06-23 11:40 | Nephrology Progress Note ---
Assessment/Plan Problem List: (1) Acute on chronic renal failure (2) Respiratory failure (3) Pneumonia (4) UTI (urinary tract infection) Assessment Renal failure- Has a chronic component with ? superimposed acute- in December 2014 the Cr was 2.2 Acute respiratory failure, ON BIPAP Morbid obesity Diabetic Nephropathy COPD Depression Dementia HypoAlbuminemia ? Nephrotic Syndrom Plan Plan: DNR DNI Slow hydrate pul support 24 h urine CrCl and protein Urine studies keep BP and BS incheck adjust BP meds per consultants Subjective ROS Limited/Unobtainable: No Constitutional: Reports: malaise, weakness Objective Objective Last 24 Hour Vital Signs Date Time Temp Pulse Resp B/P (MAP) Pulse Ox O2 Delivery O2 Flow Rate FiO2 06/23/17 08:23 Venturi Mask 10.0 45 06/23/17 08:23 100 Venturi Mask 10.0 45 06/23/17 08:00 111 06/23/17 08:00 99.5 103 20 150/82 99 Venturi Mask 55 06/23/17 04:00 111 06/23/17 04:00 98.2 99 20 149/72 99 Venturi Mask 55 06/23/17 00:00 98 06/23/17 00:00 98.1 100 22 135/69 100 Venturi Mask 55 06/22/17 20:00 98.3 97 25 135/69 100 Venturi Mask 06/22/17 20:00 96 06/22/17 19:09 Venturi Mask 14.0 55 06/22/17 19:09 99 Venturi Mask 14.0 55 06/22/17 17:10 162/81 06/22/17 16:00 99.5 97 22 162/81 99 Venturi Mask 06/22/17 15:29 94 06/22/17 12:07 55 06/22/17 12:00 99.3 93 22 159/85 100 Venturi Mask 06/22/17 12:00 95 Intake and Output 06/22/17 06/23/17 19:00 07:00 Intake Total 260 ml 600 ml Output Total 800 ml 550 ml Balance -540 ml 50 ml IV Total 260 ml 600 ml Output Urine Total 800 ml 550 ml Laboratory Tests 06/23/17 03:45: White Blood Count 2.8L, Red Blood Count 3.40L, Hemoglobin 11.1L, Hematocrit 35.2L, Mean Corpuscular Volume 104H, Mean Corpuscular Hemoglobin 32.7H, Mean Corpuscular Hemoglobin Concent 31.6L, Red Cell Distribution Width 13.3, Platelet Count 62L, Mean Platelet Volume 9.5, Neutrophils (%) (Auto) , Lymphocytes (%) (Auto) , Monocytes (%) (Auto) , Eosinophils (%) (Auto) , Basophils (%) (Auto) , Differential Total Cells Counted 100, Neutrophils % ( Manual) 73, Lymphocytes % (Manual) 12L, Monocytes % (Manual) 9, Eosinophils % ( Manual) 1, Basophils % (Manual) 1, Band Neutrophils 4, Platelet Estimate DecreasedL, Platelet Morphology Normal, Macrocytosis 1+, Sodium Level 145, Potassium Level 4.8, Chloride Level 110H, Carbon Dioxide Level 29, Anion Gap 6, Blood Urea Nitrogen 55H, Creatinine 1.7H, Estimat Glomerular Filtration Rate 30.4, Glucose Level 84, Calcium Level 8.4L, Total Bilirubin 0.4, Aspartate Amino Transf (AST/SGOT) 42H, Alanine Aminotransferase (ALT/SGPT) 15, Alkaline Phosphatase 49, Total Protein 6.8, Albumin 2.2L, Globulin 4.6, Albumin/Globulin Ratio 0.5L Height (Feet): 5 Height (Inches): 6.00 Weight (Pounds): 333 General Appearance: mild distress Cardiovascular: tachycardia Respiratory/Chest: decreased breath sounds Abdomen: distended TALIA ROGERS Jun 23, 2017 11:40
[2017-06-23 12:00] VITALS: BP 142/74
[2017-06-23 16:00] VITALS: BP 155/83
[2017-06-23] MEDS ORDERED: dilTIAZem HCl 50mg/10ml Inj IVP ONE ×2 (16:20→17:15)
[2017-06-23] MEDS ORDERED: Digoxin 0.5mg/2ml Inj IVP ONE (16:25)
--- NOTE | 2017-06-23 16:49 | GI Initial Consult Note ---
History of Present Illness General Date patient seen: Jun 23, 2017 Time patient seen: 16:40 Reason for Hospitalization: Dyspnea/Respdistress Referring physician: MARIO Reason for Consultation: CIRRHOSIS Present Illness HPI The patient is brought in for respiratory distress. [facility] Paramedics apparently were ordered to transport by her doctor. They were initially reluctant because the patient is DO NOT RESUSCITATE status. Apparently the doctor on the phone and asked him to come in for patient evaluation. Apparently she was bradycardic when they arrived but this improved when they helped open her airway. The patient has a history of pneumonia, congestive heart failure and cardiac disease, chronic renal failure, schizophrenia in the past. She is unable to give a history at this time. When here in December, she was able to answer questions. H/O psych. GI consulted for cirrhosis. HPI as noted above. ROS limited, AMS. Patient seen on floor, awake unable to verbally respond back. Morbid obesity. CT AP shows evidence of chronic liver disease/cirrhosis with stigmata of portal hypertension including trace ascites and splenomegaly. Unknown history of endoscopic / colonoscopies. Noted that patient is DNR/DNI. Lab evaluation pancytopenia transaminitis elevated troponin hep C positive Discharged in December 2014 for constipation. Discharge dx: 1. Generalized weakness. 2. Morbid obesity. 3. Hypertensive cardiovascular disease. 4. Chronic kidney disease, etiology and duration unknown. 5. Neuropathy. 6. Type 2 diabetes mellitus. Home Meds Reported Medications Ondansetron (Zofran) 4 Mg Tab, 4 MG ORAL Q6H Y for Nausea & Vomiting, TAB 12/31/14 Rivastigmine Tartrate (Exelon) 3 Mg Cap, 3 MG ORAL TWICE A DAY, CAP 0 Refills 12/31/14 Insulin Detemir (LEVEMIR) 100 Unit/1 Ml Vial, 40 SUBQ DAILY, VIAL 12/31/14 Epoetin David (PROCRIT) 20,000 Unit/2 Ml Vial, 43260 UNIT SUBQ 2XW, VIAL 12/31/14 Hydromorphone HCl (Dilaudid) 2 Mg Tab, 2 MG ORAL EVERY 3 HOURS, TAB 0 Refills 12/31/14 [voltaren] No Conflict Check, 2 GM TP BID 12/31/14 Ipratropium/Albuterol Sulfate (DuoNeb 0.5-3(2.5)mg/3ml) 3 Ml Ampul.neb, 3 ML HHN Q6HR, EA 12/31/14 Ferrous Sulfate* (FERROUS SULFATE*) 325 Mg Tablet, 325 MG ORAL DAILY, TAB 0 Refills 12/31/14 Benzocaine/Menthol (CEPACOL SORE THROAT LOZENGE) 1 Each Lozenge, 1 EACH MM Q4HR , LOZENGE 12/31/14 [regular insulin] No Conflict Check 12/31/14 Dextran 70/Hypromellose (ARTIFICIAL TEARS EYE DROPS*) 15 Ml Drops, 1 DROP BOTH EYES QID, ML 0 Refills 12/31/14 Nitroglycerin (NITROGLYCERIN) 0.4 Mg Tab.subl, 0.4 MG SL Q 5 mins x3, TAB 12/31/14 Diltiazem HCl (Diltiazem 12Hr ER) 30 Mg Tab, 30 MG ORAL THREE TIMES A DAY, TAB 12/31/14 Acetaminophen (Tylenol) 325 Mg Tab, 650 MG ORAL EVERY 4 HOURS Y for For Pain, TAB 0 Refills 12/31/14 Cranberry Fruit Concentrate (CRANBERRY) 450 Mg Capsule, 450 MG PO BID, CAP 12/31/14 Lactobacillus Acidophilus (ACIDOPHILUS LACTOBACILLUS) 1 Each Capsule, 1 TAB ORAL DAILY, CAP 12/31/14 Simvastatin (ZOCOR) 10 Mg Tablet, 10 MG ORAL BEDTIME, TAB 12/31/14 Pantoprazole* (PROTONIX*) 40 Mg Tablet.dr, 40 MG ORAL DAILY, TAB 12/31/14 Amlodipine Besylate (Norvasc) 5 Mg Tab, 5 MG ORAL DAILY, TAB 12/31/14 Sorbitol (Sorbitol) 30 Ml Soln, 30 ML PO DAILY 12/31/14 Valsartan (Diovan) 40 Mg Tab, 40 MG ORAL DAILY, TAB 12/31/14 Multivitamins* (MULTIVITAMINS*) 1 Each Tablet, 1 TAB ORAL DAILY, TAB 0 Refills 12/31/14 Gabapentin* (GABAPENTIN*) 300 Mg Capsule, 300 MG ORAL THREE TIMES A DAY, CAP 0 Refills 12/31/14 Furosemide* (LASIX*) 40 Mg Tablet, 40 MG ORAL DAILY, TAB 12/31/14 Furosemide* (LASIX*) 20 Mg Tablet, 60 MG ORAL DAILY, TAB 12/31/14 Docusate Sodium* (DOCUSATE SODIUM*) 100 Mg Capsule, 100 MG ORAL TWICE A DAY, CAP 12/31/14 Clopidogrel Bisulfate* (PLAVIX*) 75 Mg Tablet, 75 MG ORAL BEDTIME, TAB 12/31/14 Calcium Carbonate (Oyster Shell Calcium-Vit D Tab) 500 Mg Tab, 500 MG PO BID, TAB 12/31/14 Beclomethasone Dipropionate 40MCG Oral Inh (QVAR 40*) 7.3 Gm Aer.w.adap, 2 PUFFS INH TWICE A DAY, GM 0 Refills 12/31/14 Aspirin* (ASPIRIN*) 81 Mg Tab.chew, 81 MG ORAL DAILY, TAB 12/31/14 Ascorbic Acid* (ASCORBIC ACID*) 500 Mg Tablet, 500 MG ORAL TWICE A DAY, TAB 12/31/14 Med list reviewed/reconciled: Yes Allergies: Coded Allergies: CODEINE (Unverified Allergy, Unknown, 12/31/14) FLURAZEPAM (Unverified Allergy, Unknown, 12/31/14) PENICILLINS (Unverified Allergy, Unknown, 12/31/14) Patient History Limited by: medical condition History Provided By: Medical Record PMH Narrative Limited by: medical condition Past Medical History: see triage record, old chart reviewed Social History: Denies: smoking, alcohol use, drug use Social History Narrative SNF - DNR Now: No Reviewed Nursing Documentation: PMH: Agreed, PSxH: Agreed Nursing Documentation-PMH Hx Cardiac Problems: Yes - atherosclerosis, angina Hx Hypertension: Yes Hx COPD: Yes Hx Diabetes: Yes Hx Gastrointestinal Problems: Yes - GERD, Obesity History Of Psychiatric Problem: Yes - Depression, Dementia, Bipolar Review of Systems All Other Systems: limited Physical Exam Vital Signs Date Time Temp Pulse Resp B/P (MAP) Pulse Ox O2 Delivery O2 Flow Rate FiO2 06/20/17 21:00 80 26 125/71 91 Room Air 06/20/17 21:10 97.6 100 06/21/17 19:00 14.0 Sp02 EP Interpretation: reviewed Labs Laboratory Tests Test 06/23/17 03:45 White Blood Count 2.8 K/UL (4.8-10.8) L Red Blood Count 3.40 M/UL (4.20-5.40) L Hemoglobin 11.1 G/DL (12.0-16.0) L Hematocrit 35.2 % (37.0-47.0) L Mean Corpuscular Volume 104 FL (80-99) H Mean Corpuscular Hemoglobin 32.7 PG (27.0-31.0) H Mean Corpuscular Hemoglobin Concent 31.6 G/DL (32.0-36.0) L Red Cell Distribution Width 13.3 % (11.6-14.8) Platelet Count 62 K/UL (150-450) L Mean Platelet Volume 9.5 FL (6.5-10.1) Neutrophils (%) (Auto) % (45.0-75.0) Lymphocytes (%) (Auto) % (20.0-45.0) Monocytes (%) (Auto) % (1.0-10.0) Eosinophils (%) (Auto) % (0.0-3.0) Basophils (%) (Auto) % (0.0-2.0) Differential Total Cells Counted 100 Neutrophils % (Manual) 73 % (45-75) Lymphocytes % (Manual) 12 % (20-45) L Monocytes % (Manual) 9 % (1-10) Eosinophils % (Manual) 1 % (0-3) Basophils % (Manual) 1 % (0-2) Band Neutrophils 4 % (0-8) Platelet Estimate Decreased L Platelet Morphology Normal Macrocytosis 1+ Sodium Level 145 MMOL/L (136-145) Potassium Level 4.8 MMOL/L (3.5-5.1) Chloride Level 110 MMOL/L (98-107) H Carbon Dioxide Level 29 MMOL/L (21-32) Anion Gap 6 mmol/L (5-15) Blood Urea Nitrogen 55 mg/dL (7-18) H Creatinine 1.7 MG/DL (0.55-1.30) H Estimat Glomerular Filtration Rate 30.4 mL/min (>60) Glucose Level 84 MG/DL (74-106) Calcium Level 8.4 MG/DL (8.5-10.1) L Total Bilirubin 0.4 MG/DL (0.2-1.0) Aspartate Amino Transf (AST/SGOT) 42 U/L (15-37) H Alanine Aminotransferase (ALT/SGPT) 15 U/L (12-78) Alkaline Phosphatase 49 U/L (46-116) Total Protein 6.8 G/DL (6.4-8.2) Albumin 2.2 G/DL (3.4-5.0) L Globulin 4.6 g/dL Albumin/Globulin Ratio 0.5 (1.0-2.7) L General Appearance: no apparent distress, obese - morbidly Head: normocephalic EENT: PERRL/EOMI Neck: supple Respiratory: no respiratory distress Cardiovascular: normal rate Gastrointestinal: soft Skin: normal inspection, normal color, no rash, warm/dry Lymphatic: normal inspection, no adenopathy Current Medications Current Medications Medications (Trade) Dose Ordered Sig/Brooks Route PRN Reason Start Time Stop Time Status Last Admin Dose Admin Al Hydroxide/Mg Hydroxide (Mylanta) 30 ml Q4HR PRN ORAL heartburn 06/21/17 13:45 07/21/17 13:44 Albuterol/ Ipratropium (Albuterol/ Ipratropium) 3 ml Q4H PRN HHN Shortness of Breath 06/21/17 14:45 06/26/17 14:44 Atorvastatin Calcium (Lipitor) 40 mg BEDTIME ORAL 06/21/17 21:00 07/21/17 20:59 06/22/17 01:28 Bupropion HCl (Wellbutrin XL) 450 mg DAILY ORAL 06/22/17 09:00 07/22/17 08:59 Cefepime HCl 2 gm/ Dextrose 55 ml @ 110 mls/hr EVERY 12 HOURS IVPB 06/23/17 21:00 06/30/17 20:59 Clopidogrel Bisulfate (Plavix) 75 mg DAILY ORAL 06/22/17 09:00 07/22/17 08:59 Dextrose (Dextrose 50%) STAT PRN IV Hypoglycemia 06/21/17 14:15 07/21/17 14:14 06/21/17 14:32 Diltiazem HCl 125 mg/Sodium Chloride 135 ml @ 0 mls/hr Q24H IV 06/23/17 16:45 07/23/17 16:44 Docusate Sodium (Colace) 250 mg TWICE A DAY ORAL 06/21/17 18:00 07/21/17 17:59 Famotidine (Pepcid) 20 mg Q12HR ORAL 06/21/17 18:00 07/21/17 17:59 Gabapentin (Neurontin) 300 mg Q12HR ORAL 06/21/17 21:00 07/21/17 20:59 06/22/17 01:28 Insulin Aspart (NovoLOG) BEFORE MEALS AND HS SUBQ 06/21/17 16:30 07/21/17 16:29 Isosorbide Mononitrate (Imdur) 30 mg BID ORAL 06/22/17 18:00 07/22/17 08:59 Methocarbamol (Robaxin) 500 mg Q12HR PRN ORAL MUSCLE SPASM LOWER BACK 06/21/17 13:45 07/21/17 13:44 06/22/17 03:26 Metoprolol Tartrate (Lopressor) 50 mg Q12HR ORAL 06/21/17 21:00 07/21/17 20:59 06/22/17 01:29 Morphine Sulfate (Morphine Sulfate) 1 mg Q6H PRN IVP Severe Pain (Pain Scale 7-10) 06/22/17 15:30 06/29/17 15:29 06/23/17 12:32 Nitroglycerin (Ntg) 0.4 mg Q5M PRN SL Prn Chest Pain 06/21/17 13:45 07/21/17 13:44 Nystatin (Nystop Powder) 1 applic THREE TIMES A DAY TOPIC 06/21/17 20:00 07/21/17 19:59 06/23/17 12:41 Ondansetron HCl (Zofran ODT) 8 mg BID PRN ORAL Nausea & Vomiting 06/21/17 13:45 07/21/17 13:44 Rivastigmine Tartrate (Exelon) 6 mg TWICE A DAY ORAL 06/21/17 18:00 07/21/17 17:59 Sennosides (Senokot) 1 tab DAILY ORAL 06/22/17 09:00 07/22/17 08:59 Sodium Chloride 1,000 ml @ 50 mls/hr Q20H IV 06/22/17 16:00 07/22/17 15:59 06/23/17 12:31 GI: Plan Problems: (1) Cirrhosis (2) Portal hypertension (3) Vomiting (4) Constipation (5) Abdominal pain Plan CT AP reviewed >> Evidence of chronic liver disease/cirrhosis with stigmata of portal hypertension including trace ascites and splenomegaly, see full report. hepatitis C positive pancytopenia most likely due to liver disease elevated troponin levels patient is on plavix defer any GI procedures, conservative management and supportive care monitor H&H, prn transfusions ppi daily manage portal HTN >> consider non-selective beta moon >> propranolol 10mg BID and titrate to goal SBP 100-120, hold for SBP < 100 or HR < 60. fu labs per consultants Discussed with Dr. Fuentes. Thank you for this patient referral, we will follow. Kalie Argueta N.P. Jun 23, 2017 16:49
--- NOTE | 2017-06-23 17:03 | Cardiac Electrophysiology PN ---
Assessment/Plan Assessment/Plan 1. Atrial fib with RVR. Will digitalize patient and give iv Digoxin 0.25 iv daily. If that doesn't work will need Cardizem drip at 10 mg/hr. 2. [id number] myocardial infarction and troponin of 0.78. The patient does not want any invasive procedure and wants to be Do Not Resuscitate. We will treat the patient medically with aspirin, Plavix, beta-moon, Imdur and Lipitor as well. 3. Morbid obesity. 4. Hypertension, on Cardizem and Toprol. 5. Pancytopenia. Further evaluation by Dr. Muñoz including platelet count of 50,000. 6. Hypercarbic respiratory failure. The patient is refusing BiPAP. 7. Do Not Resuscitate. DW RN and ICU grader green meat Subjective Subjective Just developed atrial fib with RVR 170s. Feels palpitation. Objective Last 24 Hour Vital Signs Date Time Temp Pulse Resp B/P (MAP) Pulse Ox O2 Delivery O2 Flow Rate FiO2 06/23/17 16:28 179 06/23/17 16:28 179 155/83 06/23/17 12:00 103 06/23/17 12:00 99.5 106 18 142/74 95 Venturi Mask 55 06/23/17 08:23 Venturi Mask 10.0 45 06/23/17 08:23 100 Venturi Mask 10.0 45 06/23/17 08:00 111 06/23/17 08:00 99.5 103 20 150/82 99 Venturi Mask 55 06/23/17 04:00 111 06/23/17 04:00 98.2 99 20 149/72 99 Venturi Mask 55 06/23/17 00:00 98 06/23/17 00:00 98.1 100 22 135/69 100 Venturi Mask 55 06/22/17 20:00 98.3 97 25 135/69 100 Venturi Mask 06/22/17 20:00 96 06/22/17 19:09 Venturi Mask 14.0 55 06/22/17 19:09 99 Venturi Mask 14.0 55 06/22/17 17:10 162/81 Intake and Output 06/22/17 06/23/17 19:00 07:00 Intake Total 260 ml 600 ml Output Total 800 ml 550 ml Balance -540 ml 50 ml IV Total 260 ml 600 ml Output Urine Total 800 ml 550 ml Laboratory Tests Test 06/23/17 03:45 White Blood Count 2.8 K/UL (4.8-10.8) L Red Blood Count 3.40 M/UL (4.20-5.40) L Hemoglobin 11.1 G/DL (12.0-16.0) L Hematocrit 35.2 % (37.0-47.0) L Mean Corpuscular Volume 104 FL (80-99) H Mean Corpuscular Hemoglobin 32.7 PG (27.0-31.0) H Mean Corpuscular Hemoglobin Concent 31.6 G/DL (32.0-36.0) L Red Cell Distribution Width 13.3 % (11.6-14.8) Platelet Count 62 K/UL (150-450) L Mean Platelet Volume 9.5 FL (6.5-10.1) Neutrophils (%) (Auto) % (45.0-75.0) Lymphocytes (%) (Auto) % (20.0-45.0) Monocytes (%) (Auto) % (1.0-10.0) Eosinophils (%) (Auto) % (0.0-3.0) Basophils (%) (Auto) % (0.0-2.0) Differential Total Cells Counted 100 Neutrophils % (Manual) 73 % (45-75) Lymphocytes % (Manual) 12 % (20-45) L Monocytes % (Manual) 9 % (1-10) Eosinophils % (Manual) 1 % (0-3) Basophils % (Manual) 1 % (0-2) Band Neutrophils 4 % (0-8) Platelet Estimate Decreased L Platelet Morphology Normal Macrocytosis 1+ Sodium Level 145 MMOL/L (136-145) Potassium Level 4.8 MMOL/L (3.5-5.1) Chloride Level 110 MMOL/L (98-107) H Carbon Dioxide Level 29 MMOL/L (21-32) Anion Gap 6 mmol/L (5-15) Blood Urea Nitrogen 55 mg/dL (7-18) H Creatinine 1.7 MG/DL (0.55-1.30) H Estimat Glomerular Filtration Rate 30.4 mL/min (>60) Glucose Level 84 MG/DL (74-106) Calcium Level 8.4 MG/DL (8.5-10.1) L Total Bilirubin 0.4 MG/DL (0.2-1.0) Aspartate Amino Transf (AST/SGOT) 42 U/L (15-37) H Alanine Aminotransferase (ALT/SGPT) 15 U/L (12-78) Alkaline Phosphatase 49 U/L (46-116) Total Protein 6.8 G/DL (6.4-8.2) Albumin 2.2 G/DL (3.4-5.0) L Globulin 4.6 g/dL Albumin/Globulin Ratio 0.5 (1.0-2.7) L Microbiology Date/Time Source Procedure Growth Status 06/20/17 21:30 Blood Blood Culture - Preliminary NO GROWTH AFTER 48 HOURS Resulted 06/20/17 21:15 Blood Blood Culture - Preliminary NO GROWTH AFTER 48 HOURS Resulted 06/21/17 00:00 Nasal Nares MRSA Culture - Final NO METHICILLIN RESISTANT STAPH AUREUS... Complete 06/20/17 21:35 Nasal Nares Influenza Types A,B Antigen (JEY) - Final Complete 06/21/17 00:00 Urine,Clean Catch Urine Culture - Preliminary Streptococcus Species Resulted 06/21/17 00:00 Rectum VRE Culture - Final Enterococcus Faecalis - Vre Complete Objective HEAD AND NECK: Showed no JVD. LUNGS: Decreased breath sounds. CARDIOVASCULAR: Irregular tachycardic ABDOMEN: Morbidly obese. EXTREMITIES: No pitting edema. LE BENSON Jun 23, 2017 17:03
[2017-06-23 20:00] VITALS: BP 180/81
[2017-06-23] MEDS: Cefepime 2gm in D5W 55ml IVPB SCH (20:31)
[2017-06-23] MEDS: Methocarbamol 500mg tab ORAL PRN (23:43)
[2017-06-24] VITALS (12 sets, daily range): BP systolic 118–163; BP diastolic 60–96
[2017-06-24 04:30] LABS: HEMATOCRIT 36.7 % (37.0-47.0); HEMOGLOBIN 11.9 G/DL (12.0-16.0); MEAN CORPUSCULAR VOLUME 103 FL (80-99); PLATELET COUNT 65 K/UL (150-450); RED BLOOD COUNT 3.58 M/UL (4.20-5.40); RED CELL DISTRIBUTION WIDTH 12.9 % (11.6-14.8)
[2017-06-24 04:55] LABS: ALANINE AMINOTRANSFERASE 16 U/L (12-78); ALBUMIN 2.1 G/DL (3.4-5.0); ALBUMIN/GLOBULIN RATIO 0.4 (1.0-2.7); ALKALINE PHOSPHATASE 53 U/L (46-116); ANION GAP 6 mmol/L (5-15); ASPARTATE AMINO TRANSFERASE 47 U/L (15-37); BILIRUBIN,TOTAL 0.5 MG/DL (0.2-1.0); BLOOD UREA NITROGEN 53 mg/dL (7-18); CALCIUM 8.4 MG/DL (8.5-10.1); CARBON DIOXIDE 29 MMOL/L (21-32); CHLORIDE 112 MMOL/L (98-107); CREATININE 1.6 MG/DL (0.55-1.30); POTASSIUM 4.7 MMOL/L (3.5-5.1); SODIUM 147 MMOL/L (136-145)
[2017-06-24] MEDS: NovoLOG Insulin Flexpen SUBQ SCH ×4 (06:30→21:04)
--- NOTE | 2017-06-24 08:36 | General Progress Note ---
Assessment/Plan Assessment/Plan ASSESSMENT AND RECOMMENDATIONS: 1. Pancytopenia, likely due to liver disease/cirrhosis. --> continue to monitor, ANC goal is above 1000 --> CT AP: Evidence of chronic liver disease/cirrhosis with stigmata of portal hypertension including trace ascites and splenomegaly --> plt goal above 20K 2. Anemia secondary to chronic kidney disease. 3. Elevated troponin, non-ST elevation myocardial infarction. Cardiology service following. 4. Chronic obstructive pulmonary disease exacerbation versus pneumonia. 5. She is on BiPAP currently and is DNR. On antibiotics as per Pulmonary team. 6. Chronic kidney disease, being seen by Dr. Perez, superimposed acute kidney injury on chronic kidney disease. Subjective Allergies: Coded Allergies: CODEINE (Unverified Allergy, Unknown, 12/31/14) FLURAZEPAM (Unverified Allergy, Unknown, 12/31/14) PENICILLINS (Unverified Allergy, Unknown, 12/31/14) Subjective NAD Objective Last 24 Hour Vital Signs Date Time Temp Pulse Resp B/P (MAP) Pulse Ox O2 Delivery O2 Flow Rate FiO2 06/24/17 08:00 97.5 83 18 160/82 99 Venturi Mask 10.0 45 06/24/17 07:03 Venturi Mask 10.0 45 06/24/17 07:03 96 Venturi Mask 10.0 45 06/24/17 07:00 86 16 158/87 100 Venturi Mask 10.0 45 06/24/17 04:00 84 06/24/17 04:00 98.3 71 20 163/79 96 Venturi Mask 06/24/17 00:00 98.6 83 26 163/96 97 Venturi Mask 06/24/17 00:00 88 06/23/17 20:31 109 196/81 06/23/17 20:00 98.4 103 21 180/81 99 Venturi Mask 06/23/17 20:00 89 06/23/17 19:08 Venturi Mask 10.0 45 06/23/17 19:08 98 Venturi Mask 10.0 45 06/23/17 18:00 147/72 06/23/17 17:21 122 155/83 06/23/17 17:20 123 155/83 06/23/17 16:28 179 06/23/17 16:28 179 155/83 06/23/17 16:00 99.9 180 19 155/83 99 Venturi Mask 55 06/23/17 16:00 106 06/23/17 12:00 103 06/23/17 12:00 99.5 106 18 142/74 95 Venturi Mask 55 Intake and Output 06/23/17 06/24/17 19:00 07:00 Intake Total 567.6 ml 773.8 ml Output Total 1300 ml 800 ml Balance -732.4 ml -26.2 ml IV Total 567.6 ml 773.8 ml Output Urine Total 1300 ml 800 ml # Bowel Movements 1 Laboratory Tests 06/24/17 03:11: White Blood Count 4.0L, Red Blood Count 3.58L, Hemoglobin 11.9L, Hematocrit 36.7L, Mean Corpuscular Volume 103H, Mean Corpuscular Hemoglobin 33.4H, Mean Corpuscular Hemoglobin Concent 32.5, Red Cell Distribution Width 12.9, Platelet Count 65L, Mean Platelet Volume 7.7, Neutrophils (%) (Auto) , Lymphocytes (%) ( Auto) , Monocytes (%) (Auto) , Eosinophils (%) (Auto) , Basophils (%) (Auto) , Sodium Level 147H, Potassium Level 4.7, Chloride Level 112H, Carbon Dioxide Level 29, Anion Gap 6, Blood Urea Nitrogen 53H, Creatinine 1.6H, Estimat Glomerular Filtration Rate 32.6, Glucose Level 163H, Calcium Level 8.4L, Total Bilirubin 0.5, Aspartate Amino Transf (AST/SGOT) 47H, Alanine Aminotransferase ( ALT/SGPT) 16, Alkaline Phosphatase 53, Total Protein 7.0, Albumin 2.1L, Globulin 4.9, Albumin/Globulin Ratio 0.4L Height (Feet): 5 Height (Inches): 6.00 Weight (Pounds): 334 Phoenix Muñoz Jun 24, 2017 08:36
[2017-06-24] MEDS: Cefepime 2gm in D5W 55ml IVPB SCH ×2 (09:01→20:56)
[2017-06-24] MEDS: Metoprolol Tartrate 50mg tab ORAL SCH ×2 (09:04→20:58)
[2017-06-24] MEDS: Docusate 250mg cap ORAL SCH ×2 (09:04→18:17)
[2017-06-24] MEDS: Exelon 1.5mg cap ORAL SCH ×2 (09:05→18:00)
[2017-06-24] MEDS: Imdur 30mg tab ORAL SCH ×2 (09:05→18:23)
[2017-06-24] MEDS: Nystatin Powder 100,000 units/gm 15gm TOPIC SCH ×3 (09:05→18:23)
[2017-06-24] MEDS: BuPROPion XL 150mg tab ORAL SCH (09:05)
[2017-06-24] MEDS: Sennosides 8.6mg ORAL SCH (09:05)
--- NOTE | 2017-06-24 11:00 | Nephrology Progress Note ---
Assessment/Plan Problem List: (1) Acute on chronic renal failure (2) Respiratory failure (3) Pneumonia (4) UTI (urinary tract infection) Assessment Renal failure- Has a chronic component with ? superimposed acute- in December 2014 the Cr was 2.2 now 1.6 Acute respiratory failure, ON BIPAP Morbid obesity Diabetic Nephropathy COPD Depression Dementia HypoAlbuminemia ? Nephrotic Syndrom Plan Plan: on Cardiazem drip DNR DNI Slow hydrate pul support 24 h urine CrCl and protein non nephrotic Urine studies keep BP and BS incheck adjust BP meds per consultants Subjective ROS Limited/Unobtainable: No Constitutional: Reports: malaise, weakness Objective Objective Last 24 Hour Vital Signs Date Time Temp Pulse Resp B/P (MAP) Pulse Ox O2 Delivery O2 Flow Rate FiO2 06/24/17 10:00 71 20 145/77 100 Venturi Mask 10.0 45 06/24/17 09:11 79 150/72 06/24/17 09:05 150/72 06/24/17 09:04 79 150/72 06/24/17 09:00 79 21 150/72 100 Venturi Mask 10.0 45 06/24/17 08:00 78 06/24/17 08:00 97.5 83 18 160/82 99 Venturi Mask 10.0 45 06/24/17 07:03 Venturi Mask 10.0 45 06/24/17 07:03 96 Venturi Mask 10.0 45 06/24/17 07:00 86 16 158/87 100 Venturi Mask 10.0 45 06/24/17 04:00 84 06/24/17 04:00 98.3 71 20 163/79 96 Venturi Mask 06/24/17 00:00 98.6 83 26 163/96 97 Venturi Mask 06/24/17 00:00 88 06/23/17 20:31 109 196/81 06/23/17 20:00 98.4 103 21 180/81 99 Venturi Mask 06/23/17 20:00 89 06/23/17 19:08 Venturi Mask 10.0 45 06/23/17 19:08 98 Venturi Mask 10.0 45 06/23/17 18:00 147/72 06/23/17 17:21 122 155/83 06/23/17 17:20 123 155/83 06/23/17 16:28 179 06/23/17 16:28 179 155/83 06/23/17 16:00 99.9 180 19 155/83 99 Venturi Mask 55 06/23/17 16:00 106 06/23/17 12:00 103 06/23/17 12:00 99.5 106 18 142/74 95 Venturi Mask 55 Intake and Output 06/23/17 06/24/17 19:00 07:00 Intake Total 567.6 ml 823.8 ml Output Total 1300 ml 800 ml Balance -732.4 ml 23.8 ml IV Total 567.6 ml 823.8 ml Output Urine Total 1300 ml 800 ml # Bowel Movements 1 Laboratory Tests 06/24/17 03:11: White Blood Count 4.0L, Red Blood Count 3.58L, Hemoglobin 11.9L, Hematocrit 36.7L, Mean Corpuscular Volume 103H, Mean Corpuscular Hemoglobin 33.4H, Mean Corpuscular Hemoglobin Concent 32.5, Red Cell Distribution Width 12.9, Platelet Count 65L, Mean Platelet Volume 7.7, Neutrophils (%) (Auto) , Lymphocytes (%) ( Auto) , Monocytes (%) (Auto) , Eosinophils (%) (Auto) , Basophils (%) (Auto) , Sodium Level 147H, Potassium Level 4.7, Chloride Level 112H, Carbon Dioxide Level 29, Anion Gap 6, Blood Urea Nitrogen 53H, Creatinine 1.6H, Estimat Glomerular Filtration Rate 32.6, Glucose Level 163H, Calcium Level 8.4L, Total Bilirubin 0.5, Aspartate Amino Transf (AST/SGOT) 47H, Alanine Aminotransferase ( ALT/SGPT) 16, Alkaline Phosphatase 53, Total Protein 7.0, Albumin 2.1L, Globulin 4.9, Albumin/Globulin Ratio 0.4L Height (Feet): 5 Height (Inches): 6.00 Weight (Pounds): 334 General Appearance: mild distress Cardiovascular: tachycardia Respiratory/Chest: decreased breath sounds Abdomen: distended TALIA ROGERS Jun 24, 2017 11:00
--- NOTE | 2017-06-24 12:01 | GI Progress Note ---
Assessment/Plan Problems: (1) Abdominal pain ICD Codes: R10.9 - Unspecified abdominal pain SNOMED: 49218691 (2) Cirrhosis ICD Codes: K74.60 - Unspecified cirrhosis of liver SNOMED: 27365597 (3) Portal hypertension ICD Codes: K76.6 - Portal hypertension SNOMED: 46790261 (4) Constipation ICD Codes: K59.00 - Constipation, unspecified SNOMED: 18922329 (5) Vomiting ICD Codes: R11.10 - Vomiting, unspecified SNOMED: 480282025 Status: unchanged Status Narrative Discussed with Dr. Fuentes. Assessment/Plan CT AP reviewed >> Evidence of chronic liver disease/cirrhosis with stigmata of portal hypertension including trace ascites and splenomegaly, see full report. hepatitis C positive pancytopenia most likely due to liver disease elevated troponin levels patient is on plavix defer any GI procedures, conservative management and supportive care >> will require cardiac clearance prior any proceduers monitor H&H, prn transfusions ppi daily manage portal HTN >> consider non-selective beta moon >> propranolol 10mg BID and titrate to goal SBP 100-120, hold for SBP < 100 or HR < 60. fu labs per consultants Subjective Subjective limited Objective Last 24 Hour Vital Signs Date Time Temp Pulse Resp B/P (MAP) Pulse Ox O2 Delivery O2 Flow Rate FiO2 06/24/17 11:00 74 18 129/70 98 Venturi Mask 10.0 45 06/24/17 10:00 71 20 145/77 100 Venturi Mask 10.0 45 06/24/17 09:11 79 150/72 06/24/17 09:05 150/72 06/24/17 09:04 79 150/72 06/24/17 09:00 79 21 150/72 100 Venturi Mask 10.0 45 06/24/17 08:00 78 06/24/17 08:00 97.5 83 18 160/82 99 Venturi Mask 10.0 45 06/24/17 07:03 Venturi Mask 10.0 45 06/24/17 07:03 96 Venturi Mask 10.0 45 06/24/17 07:00 86 16 158/87 100 Venturi Mask 10.0 45 06/24/17 04:00 84 06/24/17 04:00 98.3 71 20 163/79 96 Venturi Mask 06/24/17 00:00 98.6 83 26 163/96 97 Venturi Mask 06/24/17 00:00 88 06/23/17 20:31 109 196/81 06/23/17 20:00 98.4 103 21 180/81 99 Venturi Mask 06/23/17 20:00 89 06/23/17 19:08 Venturi Mask 10.0 45 06/23/17 19:08 98 Venturi Mask 10.0 45 06/23/17 18:00 147/72 06/23/17 17:21 122 155/83 06/23/17 17:20 123 155/83 06/23/17 16:28 179 06/23/17 16:28 179 155/83 06/23/17 16:00 99.9 180 19 155/83 99 Venturi Mask 55 06/23/17 16:00 106 06/23/17 12:00 103 06/23/17 12:00 99.5 106 18 142/74 95 Venturi Mask 55 Intake and Output 06/23/17 06/24/17 19:00 07:00 Intake Total 567.6 ml 823.8 ml Output Total 1300 ml 800 ml Balance -732.4 ml 23.8 ml IV Total 567.6 ml 823.8 ml Output Urine Total 1300 ml 800 ml # Bowel Movements 1 Laboratory Tests Test 06/24/17 03:11 White Blood Count 4.0 K/UL (4.8-10.8) L Red Blood Count 3.58 M/UL (4.20-5.40) L Hemoglobin 11.9 G/DL (12.0-16.0) L Hematocrit 36.7 % (37.0-47.0) L Mean Corpuscular Volume 103 FL (80-99) H Mean Corpuscular Hemoglobin 33.4 PG (27.0-31.0) H Mean Corpuscular Hemoglobin Concent 32.5 G/DL (32.0-36.0) Red Cell Distribution Width 12.9 % (11.6-14.8) Platelet Count 65 K/UL (150-450) L Mean Platelet Volume 7.7 FL (6.5-10.1) Neutrophils (%) (Auto) % (45.0-75.0) Lymphocytes (%) (Auto) % (20.0-45.0) Monocytes (%) (Auto) % (1.0-10.0) Eosinophils (%) (Auto) % (0.0-3.0) Basophils (%) (Auto) % (0.0-2.0) Sodium Level 147 MMOL/L (136-145) H Potassium Level 4.7 MMOL/L (3.5-5.1) Chloride Level 112 MMOL/L (98-107) H Carbon Dioxide Level 29 MMOL/L (21-32) Anion Gap 6 mmol/L (5-15) Blood Urea Nitrogen 53 mg/dL (7-18) H Creatinine 1.6 MG/DL (0.55-1.30) H Estimat Glomerular Filtration Rate 32.6 mL/min (>60) Glucose Level 163 MG/DL (74-106) H Calcium Level 8.4 MG/DL (8.5-10.1) L Total Bilirubin 0.5 MG/DL (0.2-1.0) Aspartate Amino Transf (AST/SGOT) 47 U/L (15-37) H Alanine Aminotransferase (ALT/SGPT) 16 U/L (12-78) Alkaline Phosphatase 53 U/L (46-116) Total Protein 7.0 G/DL (6.4-8.2) Albumin 2.1 G/DL (3.4-5.0) L Globulin 4.9 g/dL Albumin/Globulin Ratio 0.4 (1.0-2.7) L Height (Feet): 5 Height (Inches): 6.00 Weight (Pounds): 334 General Appearance: alert, confused Cardiovascular: normal rate Respiratory/Chest: other - venturi mask Abdominal Exam: soft Kalie Argueta N.Keri Jun 24, 2017 12:01
--- NOTE | 2017-06-24 12:14 | Infectious Diseases Prog Note ---
Assessment/Plan Assessment/Plan A: Pneumonia UTI with VRE VRE colonization COPD Hypercapnic respiratory failure Chronic kidney disease Morbid obesity DM PCN allergy P; Continue Cefepime, add Doxycycline Refused BIPAP & intubation will f/u cultures Subjective ROS Limited/Unobtainable: Yes Musculoskeletal: Reports: pain, other - generalized Allergies: Coded Allergies: CODEINE (Unverified Allergy, Unknown, 12/31/14) FLURAZEPAM (Unverified Allergy, Unknown, 12/31/14) PENICILLINS (Unverified Allergy, Unknown, 12/31/14) Objective Vital Signs Last 24 Hour Vital Signs Date Time Temp Pulse Resp B/P (MAP) Pulse Ox O2 Delivery O2 Flow Rate FiO2 06/24/17 12:00 98.4 81 24 127/73 100 Venturi Mask 10.0 45 06/24/17 11:00 74 18 129/70 98 Venturi Mask 10.0 45 06/24/17 10:00 71 20 145/77 100 Venturi Mask 10.0 45 06/24/17 09:11 79 150/72 06/24/17 09:05 150/72 06/24/17 09:04 79 150/72 06/24/17 09:00 79 21 150/72 100 Venturi Mask 10.0 45 06/24/17 08:00 78 06/24/17 08:00 97.5 83 18 160/82 99 Venturi Mask 10.0 45 06/24/17 07:03 Venturi Mask 10.0 45 06/24/17 07:03 96 Venturi Mask 10.0 45 06/24/17 07:00 86 16 158/87 100 Venturi Mask 10.0 45 06/24/17 04:00 84 06/24/17 04:00 98.3 71 20 163/79 96 Venturi Mask 06/24/17 00:00 98.6 83 26 163/96 97 Venturi Mask 06/24/17 00:00 88 06/23/17 20:31 109 196/81 06/23/17 20:00 98.4 103 21 180/81 99 Venturi Mask 06/23/17 20:00 89 06/23/17 19:08 Venturi Mask 10.0 45 06/23/17 19:08 98 Venturi Mask 10.0 45 06/23/17 18:00 147/72 06/23/17 17:21 122 155/83 06/23/17 17:20 123 155/83 06/23/17 16:28 179 06/23/17 16:28 179 155/83 06/23/17 16:00 99.9 180 19 155/83 99 Venturi Mask 55 06/23/17 16:00 106 Height (Feet): 5 Height (Inches): 6.00 Weight (Pounds): 334 HEENT: mucous membranes moist Respiratory/Chest: respiratory distress, decreased breath sounds, other - O2 by mask Cardiovascular: normal rate Abdomen: soft, non tender Extremities: other - edema Neurologic/Psychiatric: alert, responsive Laboratory Tests Test 06/24/17 03:11 White Blood Count 4.0 K/UL (4.8-10.8) L Red Blood Count 3.58 M/UL (4.20-5.40) L Hemoglobin 11.9 G/DL (12.0-16.0) L Hematocrit 36.7 % (37.0-47.0) L Mean Corpuscular Volume 103 FL (80-99) H Mean Corpuscular Hemoglobin 33.4 PG (27.0-31.0) H Mean Corpuscular Hemoglobin Concent 32.5 G/DL (32.0-36.0) Red Cell Distribution Width 12.9 % (11.6-14.8) Platelet Count 65 K/UL (150-450) L Mean Platelet Volume 7.7 FL (6.5-10.1) Neutrophils (%) (Auto) % (45.0-75.0) Lymphocytes (%) (Auto) % (20.0-45.0) Monocytes (%) (Auto) % (1.0-10.0) Eosinophils (%) (Auto) % (0.0-3.0) Basophils (%) (Auto) % (0.0-2.0) Sodium Level 147 MMOL/L (136-145) H Potassium Level 4.7 MMOL/L (3.5-5.1) Chloride Level 112 MMOL/L (98-107) H Carbon Dioxide Level 29 MMOL/L (21-32) Anion Gap 6 mmol/L (5-15) Blood Urea Nitrogen 53 mg/dL (7-18) H Creatinine 1.6 MG/DL (0.55-1.30) H Estimat Glomerular Filtration Rate 32.6 mL/min (>60) Glucose Level 163 MG/DL (74-106) H Calcium Level 8.4 MG/DL (8.5-10.1) L Total Bilirubin 0.5 MG/DL (0.2-1.0) Aspartate Amino Transf (AST/SGOT) 47 U/L (15-37) H Alanine Aminotransferase (ALT/SGPT) 16 U/L (12-78) Alkaline Phosphatase 53 U/L (46-116) Total Protein 7.0 G/DL (6.4-8.2) Albumin 2.1 G/DL (3.4-5.0) L Globulin 4.9 g/dL Albumin/Globulin Ratio 0.4 (1.0-2.7) L Current Medications Medications (Trade) Dose Ordered Sig/Brooks Route PRN Reason Start Time Stop Time Status Last Admin Dose Admin Al Hydroxide/Mg Hydroxide (Mylanta) 30 ml Q4HR PRN ORAL heartburn 06/21/17 13:45 07/21/17 13:44 Albuterol/ Ipratropium (Albuterol/ Ipratropium) 3 ml Q4H PRN HHN Shortness of Breath 06/21/17 14:45 06/26/17 14:44 Atorvastatin Calcium (Lipitor) 40 mg BEDTIME ORAL 06/21/17 21:00 07/21/17 20:59 06/23/17 20:29 Bupropion HCl (Wellbutrin XL) 450 mg DAILY ORAL 06/22/17 09:00 07/22/17 08:59 06/24/17 09:05 Cefepime HCl 2 gm/ Dextrose 55 ml @ 110 mls/hr EVERY 12 HOURS IVPB 06/23/17 21:00 06/30/17 20:59 06/24/17 09:01 Clopidogrel Bisulfate (Plavix) 75 mg DAILY ORAL 06/22/17 09:00 07/22/17 08:59 06/24/17 09:04 Dextrose (Dextrose 50%) STAT PRN IV Hypoglycemia 06/21/17 14:15 07/21/17 14:14 06/21/17 14:32 Diltiazem HCl (Cardizem) 60 mg TID ORAL 06/24/17 13:00 07/24/17 12:59 Docusate Sodium (Colace) 250 mg TWICE A DAY ORAL 06/21/17 18:00 07/21/17 17:59 06/24/17 09:04 Famotidine (Pepcid) 20 mg Q12HR ORAL 06/21/17 18:00 07/21/17 17:59 06/24/17 09:04 Gabapentin (Neurontin) 300 mg Q12HR ORAL 06/21/17 21:00 07/21/17 20:59 06/24/17 09:05 Insulin Aspart (NovoLOG) BEFORE MEALS AND HS SUBQ 06/21/17 16:30 07/21/17 16:29 06/24/17 11:47 Isosorbide Mononitrate (Imdur) 30 mg BID ORAL 06/22/17 18:00 07/22/17 08:59 06/24/17 09:05 Methocarbamol (Robaxin) 500 mg Q12HR PRN ORAL MUSCLE SPASM LOWER BACK 06/21/17 13:45 07/21/17 13:44 06/23/17 23:43 Metoprolol Tartrate (Lopressor) 50 mg Q12HR ORAL 06/21/17 21:00 07/21/17 20:59 06/24/17 09:04 Morphine Sulfate (Morphine Sulfate) 1 mg Q6H PRN IVP Severe Pain (Pain Scale 7-10) 06/22/17 15:30 06/29/17 15:29 06/23/17 20:32 Nitroglycerin (Ntg) 0.4 mg Q5M PRN SL Prn Chest Pain 06/21/17 13:45 07/21/17 13:44 Nystatin (Nystop Powder) 1 applic THREE TIMES A DAY TOPIC 06/21/17 20:00 07/21/17 19:59 06/24/17 09:05 Ondansetron HCl (Zofran ODT) 8 mg BID PRN ORAL Nausea & Vomiting 06/21/17 13:45 07/21/17 13:44 Rivastigmine Tartrate (Exelon) 6 mg TWICE A DAY ORAL 06/21/17 18:00 07/21/17 17:59 06/24/17 09:05 Sennosides (Senokot) 1 tab DAILY ORAL 06/22/17 09:00 07/22/17 08:59 06/24/17 09:05 Sodium Chloride 1,000 ml @ 50 mls/hr Q20H IV 06/22/17 16:00 07/22/17 15:59 06/24/17 07:35 LUIZ ELDRIDGE Jun 24, 2017 12:14
--- NOTE | 2017-06-24 12:59 | Pulmonology Progress Note ---
Assessment/Plan Assessment/Plan IMPRESSION: 1. Acute on chronic respiratory failure, 2. Profound hypercapnia. 3. Pleural effusion. 4. Possible pulmonary edema. 5. Renal failure. PLAN BIPAP refused no intervention available does not want intubation comfort measures ? impression, plan, and exam edited and reviewed in detail care discussed with RN Subjective Allergies: Coded Allergies: CODEINE (Unverified Allergy, Unknown, 12/31/14) FLURAZEPAM (Unverified Allergy, Unknown, 12/31/14) PENICILLINS (Unverified Allergy, Unknown, 12/31/14) Subjective off bipap and refusing on oxygen at present per patient, does not want anything done Objective Last 24 Hour Vital Signs Date Time Temp Pulse Resp B/P (MAP) Pulse Ox O2 Delivery O2 Flow Rate FiO2 06/24/17 12:00 98.4 81 24 127/73 100 Venturi Mask 10.0 45 06/24/17 11:00 74 18 129/70 98 Venturi Mask 10.0 45 06/24/17 10:00 71 20 145/77 100 Venturi Mask 10.0 45 06/24/17 09:11 79 150/72 06/24/17 09:05 150/72 06/24/17 09:04 79 150/72 06/24/17 09:00 79 21 150/72 100 Venturi Mask 10.0 45 06/24/17 08:00 78 06/24/17 08:00 97.5 83 18 160/82 99 Venturi Mask 10.0 45 06/24/17 07:03 Venturi Mask 10.0 45 06/24/17 07:03 96 Venturi Mask 10.0 45 06/24/17 07:00 86 16 158/87 100 Venturi Mask 10.0 45 06/24/17 04:00 84 06/24/17 04:00 98.3 71 20 163/79 96 Venturi Mask 06/24/17 00:00 98.6 83 26 163/96 97 Venturi Mask 06/24/17 00:00 88 06/23/17 20:31 109 196/81 06/23/17 20:00 98.4 103 21 180/81 99 Venturi Mask 06/23/17 20:00 89 06/23/17 19:08 Venturi Mask 10.0 45 06/23/17 19:08 98 Venturi Mask 10.0 45 06/23/17 18:00 147/72 06/23/17 17:21 122 155/83 06/23/17 17:20 123 155/83 06/23/17 16:28 179 06/23/17 16:28 179 155/83 06/23/17 16:00 99.9 180 19 155/83 99 Venturi Mask 55 06/23/17 16:00 106 Intake and Output 06/23/17 06/24/17 19:00 07:00 Intake Total 567.6 ml 823.8 ml Output Total 1300 ml 800 ml Balance -732.4 ml 23.8 ml IV Total 567.6 ml 823.8 ml Output Urine Total 1300 ml 800 ml # Bowel Movements 1 Objective GENERAL: The patient is an ill-appearing female. The patient is altered at present. HEENT: Fairly negative. NECK: Supple. LUNGS: With coarse breath sounds. Reduced overall. CARDIAC: S1 and S2. Regular rate and rhythm. ABDOMEN: Soft and nontender. EXTREMITIES: Without cyanosis. Laboratory Tests 06/24/17 03:11: White Blood Count 4.0L, Red Blood Count 3.58L, Hemoglobin 11.9L, Hematocrit 36.7L, Mean Corpuscular Volume 103H, Mean Corpuscular Hemoglobin 33.4H, Mean Corpuscular Hemoglobin Concent 32.5, Red Cell Distribution Width 12.9, Platelet Count 65L, Mean Platelet Volume 7.7, Neutrophils (%) (Auto) , Lymphocytes (%) ( Auto) , Monocytes (%) (Auto) , Eosinophils (%) (Auto) , Basophils (%) (Auto) , Sodium Level 147H, Potassium Level 4.7, Chloride Level 112H, Carbon Dioxide Level 29, Anion Gap 6, Blood Urea Nitrogen 53H, Creatinine 1.6H, Estimat Glomerular Filtration Rate 32.6, Glucose Level 163H, Calcium Level 8.4L, Total Bilirubin 0.5, Aspartate Amino Transf (AST/SGOT) 47H, Alanine Aminotransferase ( ALT/SGPT) 16, Alkaline Phosphatase 53, Total Protein 7.0, Albumin 2.1L, Globulin 4.9, Albumin/Globulin Ratio 0.4L Current Medications Medications (Trade) Dose Ordered Sig/Brooks Route PRN Reason Start Time Stop Time Status Last Admin Dose Admin Al Hydroxide/Mg Hydroxide (Mylanta) 30 ml Q4HR PRN ORAL heartburn 06/21/17 13:45 07/21/17 13:44 Albuterol/ Ipratropium (Albuterol/ Ipratropium) 3 ml Q4H PRN HHN Shortness of Breath 06/21/17 14:45 06/26/17 14:44 Atorvastatin Calcium (Lipitor) 40 mg BEDTIME ORAL 06/21/17 21:00 07/21/17 20:59 06/23/17 20:29 Bupropion HCl (Wellbutrin XL) 450 mg DAILY ORAL 06/22/17 09:00 07/22/17 08:59 06/24/17 09:05 Cefepime HCl 2 gm/ Dextrose 55 ml @ 110 mls/hr EVERY 12 HOURS IVPB 06/23/17 21:00 06/30/17 20:59 06/24/17 09:01 Clopidogrel Bisulfate (Plavix) 75 mg DAILY ORAL 06/22/17 09:00 07/22/17 08:59 06/24/17 09:04 Dextrose (Dextrose 50%) STAT PRN IV Hypoglycemia 06/21/17 14:15 07/21/17 14:14 06/21/17 14:32 Diltiazem HCl (Cardizem) 60 mg TID ORAL 06/24/17 13:00 07/24/17 12:59 Docusate Sodium (Colace) 250 mg TWICE A DAY ORAL 06/21/17 18:00 07/21/17 17:59 06/24/17 09:04 Doxycycline Monohydrate (Vibramycin) 100 mg EVERY 12 HOURS ORAL 06/24/17 12:15 07/01/17 12:14 UNV Famotidine (Pepcid) 20 mg Q12HR ORAL 06/21/17 18:00 07/21/17 17:59 06/24/17 09:04 Gabapentin (Neurontin) 300 mg Q12HR ORAL 06/21/17 21:00 07/21/17 20:59 06/24/17 09:05 Insulin Aspart (NovoLOG) BEFORE MEALS AND HS SUBQ 06/21/17 16:30 07/21/17 16:29 06/24/17 11:47 Isosorbide Mononitrate (Imdur) 30 mg BID ORAL 06/22/17 18:00 07/22/17 08:59 06/24/17 09:05 Methocarbamol (Robaxin) 500 mg Q12HR PRN ORAL MUSCLE SPASM LOWER BACK 06/21/17 13:45 07/21/17 13:44 06/23/17 23:43 Metoprolol Tartrate (Lopressor) 50 mg Q12HR ORAL 06/21/17 21:00 07/21/17 20:59 06/24/17 09:04 Morphine Sulfate (Morphine Sulfate) 1 mg Q6H PRN IVP Severe Pain (Pain Scale 7-10) 06/22/17 15:30 06/29/17 15:29 06/23/17 20:32 Nitroglycerin (Ntg) 0.4 mg Q5M PRN SL Prn Chest Pain 06/21/17 13:45 07/21/17 13:44 Nystatin (Nystop Powder) 1 applic THREE TIMES A DAY TOPIC 06/21/17 20:00 07/21/17 19:59 06/24/17 09:05 Ondansetron HCl (Zofran ODT) 8 mg BID PRN ORAL Nausea & Vomiting 06/21/17 13:45 07/21/17 13:44 Rivastigmine Tartrate (Exelon) 6 mg TWICE A DAY ORAL 06/21/17 18:00 07/21/17 17:59 06/24/17 09:05 Sennosides (Senokot) 1 tab DAILY ORAL 06/22/17 09:00 07/22/17 08:59 06/24/17 09:05 Sodium Chloride 1,000 ml @ 50 mls/hr Q20H IV 06/22/17 16:00 07/22/17 15:59 06/24/17 07:35 GLENN MILLARD Jun 24, 2017 12:59
[2017-06-24] MEDS: dilTIAZem HCl 60mg tab ORAL SCH ×2 (13:11→18:23)
--- NOTE | 2017-06-24 18:00 | Cardiac Electrophysiology PN ---
Assessment/Plan Assessment/Plan 1. Atrial fib with RVR. Cardizem drip changed to po. Also on Lopressor. In SR now 2. [id number] myocardial infarction and troponin of 0.78. The patient does not want any invasive procedure and wants to be Do Not Resuscitate. We will treat the patient medically with aspirin, Plavix, beta-moon, Imdur and Lipitor as well. 3. Morbid obesity. 4. Hypertension, on Cardizem 60 tid and Toprol 50 bid. 5. Pancytopenia. Further evaluation by Dr. Muñoz including platelet count of 50,000. 6. Hypercarbic respiratory failure. The patient is refusing BiPAP. 7. Do Not Resuscitate/DNI. ABEL RN Subjective Subjective IV Cardizem DCed as patient converted to SR. No chest pain Objective Last 24 Hour Vital Signs Date Time Temp Pulse Resp B/P (MAP) Pulse Ox O2 Delivery O2 Flow Rate FiO2 06/24/17 15:00 76 28 118/62 98 Nasal Cannula 2.0 06/24/17 14:00 72 25 125/60 97 Nasal Cannula 2.0 06/24/17 13:11 82 131/65 06/24/17 13:00 82 18 131/65 98 Venturi Mask 10.0 45 06/24/17 12:00 98.4 81 24 127/73 100 Venturi Mask 10.0 45 06/24/17 12:00 78 06/24/17 11:00 74 18 129/70 98 Venturi Mask 10.0 45 06/24/17 10:00 71 20 145/77 100 Venturi Mask 10.0 45 06/24/17 09:11 79 150/72 06/24/17 09:05 150/72 06/24/17 09:04 79 150/72 06/24/17 09:00 79 21 150/72 100 Venturi Mask 10.0 45 06/24/17 08:00 78 06/24/17 08:00 97.5 83 18 160/82 99 Venturi Mask 10.0 45 06/24/17 07:03 Venturi Mask 10.0 45 06/24/17 07:03 96 Venturi Mask 10.0 45 06/24/17 07:00 86 16 158/87 100 Venturi Mask 10.0 45 06/24/17 04:00 84 06/24/17 04:00 98.3 71 20 163/79 96 Venturi Mask 06/24/17 00:00 98.6 83 26 163/96 97 Venturi Mask 06/24/17 00:00 88 06/23/17 20:31 109 196/81 06/23/17 20:00 98.4 103 21 180/81 99 Venturi Mask 06/23/17 20:00 89 06/23/17 19:08 Venturi Mask 10.0 45 06/23/17 19:08 98 Venturi Mask 10.0 45 06/23/17 18:00 147/72 Intake and Output 06/23/17 06/24/17 19:00 07:00 Intake Total 567.6 ml 823.8 ml Output Total 1300 ml 800 ml Balance -732.4 ml 23.8 ml IV Total 567.6 ml 823.8 ml Output Urine Total 1300 ml 800 ml # Bowel Movements 1 Laboratory Tests Test 06/24/17 03:11 White Blood Count 4.0 K/UL (4.8-10.8) L Red Blood Count 3.58 M/UL (4.20-5.40) L Hemoglobin 11.9 G/DL (12.0-16.0) L Hematocrit 36.7 % (37.0-47.0) L Mean Corpuscular Volume 103 FL (80-99) H Mean Corpuscular Hemoglobin 33.4 PG (27.0-31.0) H Mean Corpuscular Hemoglobin Concent 32.5 G/DL (32.0-36.0) Red Cell Distribution Width 12.9 % (11.6-14.8) Platelet Count 65 K/UL (150-450) L Mean Platelet Volume 7.7 FL (6.5-10.1) Neutrophils (%) (Auto) % (45.0-75.0) Lymphocytes (%) (Auto) % (20.0-45.0) Monocytes (%) (Auto) % (1.0-10.0) Eosinophils (%) (Auto) % (0.0-3.0) Basophils (%) (Auto) % (0.0-2.0) Sodium Level 147 MMOL/L (136-145) H Potassium Level 4.7 MMOL/L (3.5-5.1) Chloride Level 112 MMOL/L (98-107) H Carbon Dioxide Level 29 MMOL/L (21-32) Anion Gap 6 mmol/L (5-15) Blood Urea Nitrogen 53 mg/dL (7-18) H Creatinine 1.6 MG/DL (0.55-1.30) H Estimat Glomerular Filtration Rate 32.6 mL/min (>60) Glucose Level 163 MG/DL (74-106) H Calcium Level 8.4 MG/DL (8.5-10.1) L Total Bilirubin 0.5 MG/DL (0.2-1.0) Aspartate Amino Transf (AST/SGOT) 47 U/L (15-37) H Alanine Aminotransferase (ALT/SGPT) 16 U/L (12-78) Alkaline Phosphatase 53 U/L (46-116) Total Protein 7.0 G/DL (6.4-8.2) Albumin 2.1 G/DL (3.4-5.0) L Globulin 4.9 g/dL Albumin/Globulin Ratio 0.4 (1.0-2.7) L Objective HEAD AND NECK: Showed no JVD. LUNGS: Decreased breath sounds. CARDIOVASCULAR: mILDLY tachycardic S1 and s2 ABDOMEN: Morbidly obese. EXTREMITIES: No pitting edema. LE BENSON Jun 24, 2017 18:00
--- NOTE | 2017-06-24 21:55 | General Progress Note ---
Assessment/Plan Assessment/Plan ASSESSMENT AND RECOMMENDATIONS: 1. Pancytopenia, likely due to liver disease/cirrhosis. --> continue to monitor, ANC goal is above 1000 --> CT AP: Evidence of chronic liver disease/cirrhosis with stigmata of portal hypertension including trace ascites and splenomegaly --> plt goal above 20K 2. Anemia secondary to chronic kidney disease. 3. Elevated troponin, non-ST elevation myocardial infarction. Cardiology service following. 4. Chronic obstructive pulmonary disease exacerbation versus pneumonia. 5. She is on BiPAP currently and is DNR. On antibiotics as per Pulmonary team. 6. Chronic kidney disease, being seen by Dr. Perez, superimposed acute kidney injury on chronic kidney disease. Subjective Allergies: Coded Allergies: CODEINE (Unverified Allergy, Unknown, 12/31/14) FLURAZEPAM (Unverified Allergy, Unknown, 12/31/14) PENICILLINS (Unverified Allergy, Unknown, 12/31/14) All Systems: reviewed and negative except above Subjective NAD Objective Last 24 Hour Vital Signs Date Time Temp Pulse Resp B/P (MAP) Pulse Ox O2 Delivery O2 Flow Rate FiO2 06/24/17 20:58 98 150/74 06/24/17 19:11 98 Bi-pap 55 06/24/17 19:11 Bi-pap 55 06/24/17 19:07 80 26 99 Facial 55 06/24/17 18:23 87 130/79 06/24/17 18:23 130/79 06/24/17 16:00 85 06/24/17 15:00 76 28 118/62 98 Nasal Cannula 2.0 06/24/17 14:00 72 25 125/60 97 Nasal Cannula 2.0 06/24/17 13:11 82 131/65 06/24/17 13:00 82 18 131/65 98 Venturi Mask 10.0 45 06/24/17 12:00 98.4 81 24 127/73 100 Venturi Mask 10.0 45 06/24/17 12:00 78 06/24/17 11:00 74 18 129/70 98 Venturi Mask 10.0 45 06/24/17 10:00 71 20 145/77 100 Venturi Mask 10.0 45 06/24/17 09:11 79 150/72 06/24/17 09:05 150/72 06/24/17 09:04 79 150/72 06/24/17 09:00 79 21 150/72 100 Venturi Mask 10.0 45 06/24/17 08:00 78 06/24/17 08:00 97.5 83 18 160/82 99 Venturi Mask 10.0 45 06/24/17 07:03 Venturi Mask 10.0 45 06/24/17 07:03 96 Venturi Mask 10.0 45 06/24/17 07:00 86 16 158/87 100 Venturi Mask 10.0 45 06/24/17 04:00 84 06/24/17 04:00 98.3 71 20 163/79 96 Venturi Mask 06/24/17 00:00 98.6 83 26 163/96 97 Venturi Mask 06/24/17 00:00 88 Intake and Output 06/23/17 06/24/17 19:00 07:00 Intake Total 567.6 ml 823.8 ml Output Total 1300 ml 800 ml Balance -732.4 ml 23.8 ml IV Total 567.6 ml 823.8 ml Output Urine Total 1300 ml 800 ml # Bowel Movements 1 Laboratory Tests 06/24/17 03:11: White Blood Count 4.0L, Red Blood Count 3.58L, Hemoglobin 11.9L, Hematocrit 36.7L, Mean Corpuscular Volume 103H, Mean Corpuscular Hemoglobin 33.4H, Mean Corpuscular Hemoglobin Concent 32.5, Red Cell Distribution Width 12.9, Platelet Count 65L, Mean Platelet Volume 7.7, Neutrophils (%) (Auto) , Lymphocytes (%) ( Auto) , Monocytes (%) (Auto) , Eosinophils (%) (Auto) , Basophils (%) (Auto) , Sodium Level 147H, Potassium Level 4.7, Chloride Level 112H, Carbon Dioxide Level 29, Anion Gap 6, Blood Urea Nitrogen 53H, Creatinine 1.6H, Estimat Glomerular Filtration Rate 32.6, Glucose Level 163H, Calcium Level 8.4L, Total Bilirubin 0.5, Aspartate Amino Transf (AST/SGOT) 47H, Alanine Aminotransferase ( ALT/SGPT) 16, Alkaline Phosphatase 53, Total Protein 7.0, Albumin 2.1L, Globulin 4.9, Albumin/Globulin Ratio 0.4L Height (Feet): 5 Height (Inches): 6.00 Weight (Pounds): 334 General Appearance: no apparent distress EENT: normal ENT inspection Neck: normal alignment Cardiovascular: normal peripheral pulses Respiratory/Chest: chest wall non-tender Pelvis: normal external exam Edema: trace edema 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
[2017-06-25] MEDS ORDERED: Nitroglycerin Subl 0.4mg tab SL PRN
[2017-06-25 00:34] VITALS: BP 127/66
[2017-06-25] MEDS ORDERED: Albuterol/Ipratropium 3ml neb HHN PRN (02:45)
[2017-06-25] MEDS ORDERED: Morphine Sulfate 2mg/ml Inj IVP PRN (03:30)
[2017-06-25 04:41] VITALS: BP 109/54
[2017-06-25] MEDS: NovoLOG Insulin Flexpen SUBQ SCH ×4 (07:16→23:02)
[2017-06-25 07:30] LABS: HEMATOCRIT 33.3 % (37.0-47.0); HEMOGLOBIN 10.7 G/DL (12.0-16.0); MEAN CORPUSCULAR VOLUME 104 FL (80-99); PLATELET COUNT 55 K/UL (150-450); RED BLOOD COUNT 3.21 M/UL (4.20-5.40); RED CELL DISTRIBUTION WIDTH 13.1 % (11.6-14.8); WHITE BLOOD COUNT 2.9 K/UL (4.8-10.8)
[2017-06-25 08:00] VITALS: BP 155/81
[2017-06-25 08:01] LABS: ALANINE AMINOTRANSFERASE 15 U/L (12-78); ALBUMIN/GLOBULIN RATIO 0.5 (1.0-2.7); ALKALINE PHOSPHATASE 43 U/L (46-116); ANION GAP 5 mmol/L (5-15); BILIRUBIN,TOTAL 0.4 MG/DL (0.2-1.0); BLOOD UREA NITROGEN 51 mg/dL (7-18); CALCIUM 7.9 MG/DL (8.5-10.1); CARBON DIOXIDE 31 MMOL/L (21-32); CHLORIDE 117 MMOL/L (98-107); CREATININE 1.4 MG/DL (0.55-1.30); POTASSIUM 4.5 MMOL/L (3.5-5.1); SODIUM 153 MMOL/L (136-145)
[2017-06-25 08:24] LABS: ASPARTATE AMINO TRANSFERASE 37 U/L (15-37)
[2017-06-25] MEDS: Nystatin Powder 100,000 units/gm 15gm TOPIC SCH ×3 (09:00→17:27)
[2017-06-25] MEDS: Sennosides 8.6mg ORAL SCH (09:00)
[2017-06-25] MEDS: Docusate 250mg cap ORAL SCH ×2 (09:00→17:28)
[2017-06-25] MEDS ORDERED: Methocarbamol 500mg tab ORAL PRN (09:00)
[2017-06-25] MEDS ORDERED: Ondansetron ODT 8mg tab ORAL PRN (09:00)
[2017-06-25] MEDS: Cefepime HCl 2 GM in D5W 55 ML IVPB SCH ×2 (09:44→23:12)
[2017-06-25] MEDS: Imdur 30mg tab ORAL SCH ×2 (09:44→17:27)
[2017-06-25] MEDS: Metoprolol Tartrate 50mg tab ORAL SCH ×2 (09:45→23:12)
[2017-06-25] MEDS: dilTIAZem HCl 60mg tab ORAL SCH ×3 (09:45→17:27)
[2017-06-25] MEDS: BuPROPion XL 150mg tab ORAL SCH (09:46)
--- NOTE | 2017-06-25 11:51 | Nephrology Progress Note ---
Assessment/Plan Problem List: (1) Acute on chronic renal failure (2) Respiratory failure (3) Pneumonia (4) UTI (urinary tract infection) Assessment Na 153 today Renal failure- Has a chronic component with ? superimposed acute- in December 2014 the Cr was 2.2 now 1.6 Acute respiratory failure, ON BIPAP Morbid obesity Diabetic Nephropathy COPD Depression Dementia HypoAlbuminemia ? Nephrotic Syndrom Plan Plan: on Cardiazem PO DNR DNI Slow hydrate with D5w pul support 24 h urine CrCl and protein non nephrotic Urine studies keep BP and BS incheck adjust BP meds per consultants Subjective ROS Limited/Unobtainable: No Constitutional: Reports: malaise, weakness Objective Objective Last 24 Hour Vital Signs Date Time Temp Pulse Resp B/P (MAP) Pulse Ox O2 Delivery O2 Flow Rate FiO2 06/25/17 09:45 95 158/83 06/25/17 09:45 95 158/83 06/25/17 09:44 158/83 06/25/17 08:10 Nasal Cannula 2.0 28 06/25/17 08:10 99 Nasal Cannula 2.0 28 06/25/17 04:41 97.4 93 18 109/54 97 Nasal Cannula 06/25/17 04:00 79 06/25/17 00:34 96.4 76 20 127/66 Nasal Cannula 06/25/17 00:00 69 06/24/17 20:58 98 150/74 06/24/17 20:00 83 06/24/17 20:00 98.2 90 28 150/74 98 Nasal Cannula 2.0 06/24/17 19:11 98 Bi-pap 55 06/24/17 19:11 Bi-pap 55 06/24/17 19:07 80 26 99 Facial 55 06/24/17 18:23 87 130/79 06/24/17 18:23 130/79 06/24/17 16:00 85 06/24/17 15:00 76 28 118/62 98 Nasal Cannula 2.0 06/24/17 14:00 72 25 125/60 97 Nasal Cannula 2.0 06/24/17 13:11 82 131/65 06/24/17 13:00 82 18 131/65 98 Venturi Mask 10.0 45 06/24/17 12:00 98.4 81 24 127/73 100 Venturi Mask 10.0 45 06/24/17 12:00 78 Intake and Output 06/24/17 06/25/17 19:00 07:00 Intake Total 1014.905 ml Output Total 600 ml Balance 414.905 ml Intake Oral 410 ml IV Total 604.905 ml Output Urine Total 600 ml Laboratory Tests 06/25/17 06:05: White Blood Count 2.9L, Red Blood Count 3.21L, Hemoglobin 10.7L, Hematocrit 33.3L, Mean Corpuscular Volume 104H, Mean Corpuscular Hemoglobin 33.4H, Mean Corpuscular Hemoglobin Concent 32.1, Red Cell Distribution Width 13.1, Platelet Count 55L, Mean Platelet Volume 7.2, Neutrophils (%) (Auto) , Lymphocytes (%) ( Auto) , Monocytes (%) (Auto) , Eosinophils (%) (Auto) , Basophils (%) (Auto) , Differential Total Cells Counted 100, Neutrophils % (Manual) 66, Lymphocytes % ( Manual) 22, Monocytes % (Manual) 11H, Eosinophils % (Manual) 1, Basophils % ( Manual) 0, Band Neutrophils 0, Platelet Estimate DecreasedL, Platelet Morphology Normal, Hypochromasia 1+, Macrocytosis 1+, Sodium Level 153H, Potassium Level 4.5, Chloride Level 117H, Carbon Dioxide Level 31, Anion Gap 5, Blood Urea Nitrogen 51H, Creatinine 1.4H, Estimat Glomerular Filtration Rate 38.1, Glucose Level 134H, Calcium Level 7.9L, Total Bilirubin 0.4, Aspartate Amino Transf (AST/SGOT) 37, Alanine Aminotransferase (ALT/SGPT) 15, Alkaline Phosphatase 43L, Total Protein 5.9L, Albumin 2.0L, Globulin 3.9, Albumin/ Globulin Ratio 0.5L Height (Feet): 5 Height (Inches): 6.00 Weight (Pounds): 334 General Appearance: no apparent distress, lethargic Cardiovascular: tachycardia Respiratory/Chest: decreased breath sounds Abdomen: soft, other - obese ATLIA ROGERS Jun 25, 2017 11:51
--- NOTE | 2017-06-25 11:55 | Pulmonology Progress Note ---
Assessment/Plan Assessment/Plan IMPRESSION: 1. Acute on chronic respiratory failure, 2. Profound hypercapnia. 3. Pleural effusion. 4. Possible pulmonary edema. 5. Renal failure. PLAN BIPAP refused no intervention available does not want intubation comfort measures ? monitor and recommend impression, plan, and exam edited and reviewed in detail care discussed with RN Subjective Allergies: Coded Allergies: CODEINE (Unverified Allergy, Unknown, 12/31/14) FLURAZEPAM (Unverified Allergy, Unknown, 12/31/14) PENICILLINS (Unverified Allergy, Unknown, 12/31/14) Subjective off bipap and refusing respiratory care on oxygen at present per patient, does not want anything done Objective Last 24 Hour Vital Signs Date Time Temp Pulse Resp B/P (MAP) Pulse Ox O2 Delivery O2 Flow Rate FiO2 06/25/17 09:45 95 158/83 06/25/17 09:45 95 158/83 06/25/17 09:44 158/83 06/25/17 08:10 Nasal Cannula 2.0 28 06/25/17 08:10 99 Nasal Cannula 2.0 28 06/25/17 04:41 97.4 93 18 109/54 97 Nasal Cannula 06/25/17 04:00 79 06/25/17 00:34 96.4 76 20 127/66 Nasal Cannula 06/25/17 00:00 69 06/24/17 20:58 98 150/74 06/24/17 20:00 83 06/24/17 20:00 98.2 90 28 150/74 98 Nasal Cannula 2.0 06/24/17 19:11 98 Bi-pap 55 06/24/17 19:11 Bi-pap 55 06/24/17 19:07 80 26 99 Facial 55 06/24/17 18:23 87 130/79 06/24/17 18:23 130/79 06/24/17 16:00 85 06/24/17 15:00 76 28 118/62 98 Nasal Cannula 2.0 06/24/17 14:00 72 25 125/60 97 Nasal Cannula 2.0 06/24/17 13:11 82 131/65 06/24/17 13:00 82 18 131/65 98 Venturi Mask 10.0 45 06/24/17 12:00 98.4 81 24 127/73 100 Venturi Mask 10.0 45 06/24/17 12:00 78 Intake and Output 06/24/17 06/25/17 19:00 07:00 Intake Total 1014.905 ml Output Total 600 ml Balance 414.905 ml Intake Oral 410 ml IV Total 604.905 ml Output Urine Total 600 ml Objective GENERAL: The patient is an ill-appearing female. The patient is altered at present. HEENT: Fairly negative. NECK: Supple. LUNGS: With coarse breath sounds. Reduced overall. CARDIAC: S1 and S2. Regular rate and rhythm. ABDOMEN: Soft and nontender. EXTREMITIES: Without cyanosis. Laboratory Tests 06/25/17 06:05: White Blood Count 2.9L, Red Blood Count 3.21L, Hemoglobin 10.7L, Hematocrit 33.3L, Mean Corpuscular Volume 104H, Mean Corpuscular Hemoglobin 33.4H, Mean Corpuscular Hemoglobin Concent 32.1, Red Cell Distribution Width 13.1, Platelet Count 55L, Mean Platelet Volume 7.2, Neutrophils (%) (Auto) , Lymphocytes (%) ( Auto) , Monocytes (%) (Auto) , Eosinophils (%) (Auto) , Basophils (%) (Auto) , Differential Total Cells Counted 100, Neutrophils % (Manual) 66, Lymphocytes % ( Manual) 22, Monocytes % (Manual) 11H, Eosinophils % (Manual) 1, Basophils % ( Manual) 0, Band Neutrophils 0, Platelet Estimate DecreasedL, Platelet Morphology Normal, Hypochromasia 1+, Macrocytosis 1+, Sodium Level 153H, Potassium Level 4.5, Chloride Level 117H, Carbon Dioxide Level 31, Anion Gap 5, Blood Urea Nitrogen 51H, Creatinine 1.4H, Estimat Glomerular Filtration Rate 38.1, Glucose Level 134H, Calcium Level 7.9L, Total Bilirubin 0.4, Aspartate Amino Transf (AST/SGOT) 37, Alanine Aminotransferase (ALT/SGPT) 15, Alkaline Phosphatase 43L, Total Protein 5.9L, Albumin 2.0L, Globulin 3.9, Albumin/ Globulin Ratio 0.5L Current Medications Medications (Trade) Dose Ordered Sig/Brooks Route PRN Reason Start Time Stop Time Status Last Admin Dose Admin Al Hydroxide/Mg Hydroxide (Mylanta) 30 ml Q4HR PRN ORAL heartburn 06/25/17 01:00 07/21/17 13:44 Albuterol/ Ipratropium (Albuterol/ Ipratropium) 3 ml Q4H PRN HHN Shortness of Breath 06/25/17 02:45 06/26/17 14:44 Atorvastatin Calcium (Lipitor) 40 mg BEDTIME ORAL 06/25/17 21:00 07/21/17 20:59 Bupropion HCl (Wellbutrin XL) 450 mg DAILY ORAL 06/25/17 09:00 07/22/17 08:59 06/25/17 09:46 Cefepime HCl 2 gm/ Dextrose 55 ml @ 110 mls/hr EVERY 12 HOURS IVPB 06/25/17 09:00 06/30/17 20:59 06/25/17 09:44 Clopidogrel Bisulfate (Plavix) 75 mg DAILY ORAL 06/25/17 09:00 07/22/17 08:59 06/25/17 09:45 Dextrose 1,000 ml @ 75 mls/hr [id number] IV 06/25/17 12:00 07/25/17 11:59 Dextrose (Dextrose 50%) STAT PRN IV Hypoglycemia 06/25/17 14:15 07/21/17 14:14 Diltiazem HCl (Cardizem) 60 mg TID ORAL 06/25/17 09:00 07/24/17 12:59 06/25/17 09:45 Docusate Sodium (Colace) 250 mg TWICE A DAY ORAL 06/25/17 09:00 07/21/17 17:59 Doxycycline Monohydrate (Vibramycin) 100 mg EVERY 12 HOURS ORAL 06/25/17 09:00 07/01/17 13:29 06/25/17 09:45 Famotidine (Pepcid) 20 mg DAILY ORAL 06/25/17 09:00 07/25/17 08:59 06/25/17 09:57 Gabapentin (Neurontin) 300 mg Q12HR ORAL 06/25/17 09:00 07/21/17 20:59 06/25/17 09:44 Insulin Aspart (NovoLOG) BEFORE MEALS AND HS SUBQ 06/25/17 06:30 07/21/17 16:29 06/25/17 07:16 Isosorbide Mononitrate (Imdur) 30 mg BID ORAL 06/25/17 09:00 07/22/17 08:59 06/25/17 09:44 Methocarbamol (Robaxin) 500 mg Q12HR PRN ORAL MUSCLE SPASM LOWER BACK 06/25/17 09:00 07/21/17 13:44 Metoprolol Tartrate (Lopressor) 50 mg Q12HR ORAL 06/25/17 09:00 07/21/17 20:59 06/25/17 09:45 Morphine Sulfate (Morphine Sulfate) 1 mg Q6H PRN IVP Severe Pain (Pain Scale 7-10) 06/25/17 03:30 06/29/17 15:29 Nitroglycerin (Ntg) 0.4 mg Q5M PRN SL Prn Chest Pain 06/25/17 00:00 07/21/17 13:44 Nystatin (Nystop Powder) 1 applic THREE TIMES A DAY TOPIC 06/25/17 09:00 07/21/17 19:59 06/25/17 09:00 Ondansetron HCl (Zofran ODT) 8 mg BID PRN ORAL Nausea & Vomiting 06/25/17 09:00 07/21/17 13:44 Rivastigmine Tartrate (Exelon) 6 mg TWICE A DAY ORAL 06/25/17 09:00 07/21/17 17:59 Sennosides (Senokot) 1 tab DAILY ORAL 06/25/17 09:00 07/22/17 08:59 GLENN MILLARD Jun 25, 2017 11:55
[2017-06-25 12:00] VITALS: BP 150/86
--- NOTE | 2017-06-25 12:06 | Cardiac Electrophysiology PN ---
Assessment/Plan Assessment/Plan 1. Atrial fib with RVR. In SR now on Cardizem 60 tid and Toprol 50 bid. Off anticoagulation for thrombocytopenia. 2. Hyo-VT-[id number] myocardial infarction and troponin of 0.78. The patient does not want any invasive procedure . Continue treat medically with aspirin, Plavix, beta-moon, Imdur and Lipitor 3. Morbid obesity. 4. Hypertension, on Cardizem 60 tid and Toprol 50 bid. 5. Pancytopenia. Further evaluation by Dr. Muñoz including platelet count of 50,000. 6. Hypercarbic respiratory failure. The patient is refusing BiPAP. 7. Do Not Resuscitate/DNI. ABEL RN Subjective Subjective Transferred to [facility] after converted to SR. No chest pain or SOB. Objective Last 24 Hour Vital Signs Date Time Temp Pulse Resp B/P (MAP) Pulse Ox O2 Delivery O2 Flow Rate FiO2 06/25/17 09:45 95 158/83 06/25/17 09:45 95 158/83 06/25/17 09:44 158/83 06/25/17 08:10 Nasal Cannula 2.0 28 06/25/17 08:10 99 Nasal Cannula 2.0 28 06/25/17 04:41 97.4 93 18 109/54 97 Nasal Cannula 06/25/17 04:00 79 06/25/17 00:34 96.4 76 20 127/66 Nasal Cannula 06/25/17 00:00 69 06/24/17 20:58 98 150/74 06/24/17 20:00 83 06/24/17 20:00 98.2 90 28 150/74 98 Nasal Cannula 2.0 06/24/17 19:11 98 Bi-pap 55 06/24/17 19:11 Bi-pap 55 06/24/17 19:07 80 26 99 Facial 55 06/24/17 18:23 87 130/79 06/24/17 18:23 130/79 06/24/17 16:00 85 06/24/17 15:00 76 28 118/62 98 Nasal Cannula 2.0 06/24/17 14:00 72 25 125/60 97 Nasal Cannula 2.0 06/24/17 13:11 82 131/65 06/24/17 13:00 82 18 131/65 98 Venturi Mask 10.0 45 Intake and Output 06/24/17 06/25/17 19:00 07:00 Intake Total 1014.905 ml Output Total 600 ml Balance 414.905 ml Intake Oral 410 ml IV Total 604.905 ml Output Urine Total 600 ml Laboratory Tests Test 06/25/17 06:05 White Blood Count 2.9 K/UL (4.8-10.8) L Red Blood Count 3.21 M/UL (4.20-5.40) L Hemoglobin 10.7 G/DL (12.0-16.0) L Hematocrit 33.3 % (37.0-47.0) L Mean Corpuscular Volume 104 FL (80-99) H Mean Corpuscular Hemoglobin 33.4 PG (27.0-31.0) H Mean Corpuscular Hemoglobin Concent 32.1 G/DL (32.0-36.0) Red Cell Distribution Width 13.1 % (11.6-14.8) Platelet Count 55 K/UL (150-450) L Mean Platelet Volume 7.2 FL (6.5-10.1) Neutrophils (%) (Auto) % (45.0-75.0) Lymphocytes (%) (Auto) % (20.0-45.0) Monocytes (%) (Auto) % (1.0-10.0) Eosinophils (%) (Auto) % (0.0-3.0) Basophils (%) (Auto) % (0.0-2.0) Differential Total Cells Counted 100 Neutrophils % (Manual) 66 % (45-75) Lymphocytes % (Manual) 22 % (20-45) Monocytes % (Manual) 11 % (1-10) H Eosinophils % (Manual) 1 % (0-3) Basophils % (Manual) 0 % (0-2) Band Neutrophils 0 % (0-8) Platelet Estimate Decreased L Platelet Morphology Normal Hypochromasia 1+ Macrocytosis 1+ Sodium Level 153 MMOL/L (136-145) H Potassium Level 4.5 MMOL/L (3.5-5.1) Chloride Level 117 MMOL/L (98-107) H Carbon Dioxide Level 31 MMOL/L (21-32) Anion Gap 5 mmol/L (5-15) Blood Urea Nitrogen 51 mg/dL (7-18) H Creatinine 1.4 MG/DL (0.55-1.30) H Estimat Glomerular Filtration Rate 38.1 mL/min (>60) Glucose Level 134 MG/DL (74-106) H Calcium Level 7.9 MG/DL (8.5-10.1) L Total Bilirubin 0.4 MG/DL (0.2-1.0) Aspartate Amino Transf (AST/SGOT) 37 U/L (15-37) Alanine Aminotransferase (ALT/SGPT) 15 U/L (12-78) Alkaline Phosphatase 43 U/L (46-116) L Total Protein 5.9 G/DL (6.4-8.2) L Albumin 2.0 G/DL (3.4-5.0) L Globulin 3.9 g/dL Albumin/Globulin Ratio 0.5 (1.0-2.7) L Objective HEAD AND NECK: Showed no JVD. LUNGS: Decreased breath sounds. CARDIOVASCULAR: Regular S1 and s2 with No G/M ABDOMEN: Morbidly obese. EXTREMITIES: No pitting edema. LE BENSON Jun 25, 2017 12:06
[2017-06-25] MEDS: Exelon 1.5mg cap ORAL SCH ×2 (12:32→17:28)
[2017-06-25 16:00] VITALS: BP 122/67
--- NOTE | 2017-06-25 19:40 | General Progress Note ---
Assessment/Plan Assessment/Plan ASSESSMENT AND RECOMMENDATIONS: 1. Pancytopenia, likely due to liver disease/cirrhosis. --> continue to monitor, ANC goal is above 1000 --> CT AP: Evidence of chronic liver disease/cirrhosis with stigmata of portal hypertension including trace ascites and splenomegaly --> plt goal above 20K 2. Anemia secondary to chronic kidney disease. 3. Elevated troponin, non-ST elevation myocardial infarction. Cardiology service following. 4. Chronic obstructive pulmonary disease exacerbation versus pneumonia. 5. She is on BiPAP currently and is DNR. On antibiotics as per Pulmonary team. 6. Chronic kidney disease Subjective Allergies: Coded Allergies: CODEINE (Unverified Allergy, Unknown, 12/31/14) FLURAZEPAM (Unverified Allergy, Unknown, 12/31/14) PENICILLINS (Unverified Allergy, Unknown, 12/31/14) All Systems: reviewed and negative except above Subjective unchanged Objective Last 24 Hour Vital Signs Date Time Temp Pulse Resp B/P (MAP) Pulse Ox O2 Delivery O2 Flow Rate FiO2 06/25/17 17:27 122/67 06/25/17 17:27 68 122/67 06/25/17 16:00 97.3 68 18 122/67 99 Nasal Cannula 2.0 06/25/17 16:00 73 06/25/17 12:09 95 158/83 06/25/17 12:00 97.2 90 20 150/86 99 Nasal Cannula 2.0 06/25/17 12:00 79 06/25/17 09:45 95 158/83 06/25/17 09:45 95 158/83 06/25/17 09:44 158/83 06/25/17 08:10 Nasal Cannula 2.0 28 06/25/17 08:10 99 Nasal Cannula 2.0 28 06/25/17 08:00 90 06/25/17 08:00 98.8 95 18 155/81 99 Nasal Cannula 2.0 06/25/17 04:41 97.4 93 18 109/54 97 Nasal Cannula 06/25/17 04:00 79 06/25/17 00:34 96.4 76 20 127/66 Nasal Cannula 06/25/17 00:00 69 06/24/17 20:58 98 150/74 06/24/17 20:00 83 06/24/17 20:00 98.2 90 28 150/74 98 Nasal Cannula 2.0 Intake and Output 06/24/17 06/25/17 19:00 07:00 Intake Total 1014.905 ml Output Total 600 ml Balance 414.905 ml Intake Oral 410 ml IV Total 604.905 ml Output Urine Total 600 ml Laboratory Tests 06/25/17 06:05: White Blood Count 2.9L, Red Blood Count 3.21L, Hemoglobin 10.7L, Hematocrit 33.3L, Mean Corpuscular Volume 104H, Mean Corpuscular Hemoglobin 33.4H, Mean Corpuscular Hemoglobin Concent 32.1, Red Cell Distribution Width 13.1, Platelet Count 55L, Mean Platelet Volume 7.2, Neutrophils (%) (Auto) , Lymphocytes (%) ( Auto) , Monocytes (%) (Auto) , Eosinophils (%) (Auto) , Basophils (%) (Auto) , Differential Total Cells Counted 100, Neutrophils % (Manual) 66, Lymphocytes % ( Manual) 22, Monocytes % (Manual) 11H, Eosinophils % (Manual) 1, Basophils % ( Manual) 0, Band Neutrophils 0, Platelet Estimate DecreasedL, Platelet Morphology Normal, Hypochromasia 1+, Macrocytosis 1+, Sodium Level 153H, Potassium Level 4.5, Chloride Level 117H, Carbon Dioxide Level 31, Anion Gap 5, Blood Urea Nitrogen 51H, Creatinine 1.4H, Estimat Glomerular Filtration Rate 38.1, Glucose Level 134H, Calcium Level 7.9L, Total Bilirubin 0.4, Aspartate Amino Transf (AST/SGOT) 37, Alanine Aminotransferase (ALT/SGPT) 15, Alkaline Phosphatase 43L, Total Protein 5.9L, Albumin 2.0L, Globulin 3.9, Albumin/ Globulin Ratio 0.5L Height (Feet): 5 Height (Inches): 6.00 Weight (Pounds): 334 General Appearance: no apparent distress EENT: normal ENT inspection Neck: normal alignment Respiratory/Chest: decreased breath sounds Edema: mild edema 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
[2017-06-25 20:13] VITALS: BP 141/59
--- NOTE | 2017-06-25 20:15 | General Progress Note ---
Assessment/Plan Assessment/Plan Assessment/Plan Problems: (1) Abdominal pain ICD Codes: R10.9 - Unspecified abdominal pain SNOMED: 55376726 (2) Cirrhosis ICD Codes: K74.60 - Unspecified cirrhosis of liver SNOMED: 95907436 (3) Portal hypertension ICD Codes: K76.6 - Portal hypertension SNOMED: 84106196 (4) Constipation ICD Codes: K59.00 - Constipation, unspecified SNOMED: 47595661 (5) Vomiting ICD Codes: R11.10 - Vomiting, unspecified SNOMED: 606082898 Assessment/Plan CT AP reviewed >> Evidence of chronic liver disease/cirrhosis with stigmata of portal hypertension including trace ascites and splenomegaly, see full report. hepatitis C positive pancytopenia most likely due to liver disease elevated troponin levels patient is on plavix defer any GI procedures, conservative management and supportive care >> will require cardiac clearance prior any proceduers monitor H&H, prn transfusions ppi daily manage portal HTN >> consider non-selective beta moon >> propranolol 10mg BID and titrate to goal SBP 100-120, hold for SBP < 100 or HR < 60. fu labs per consultants Subjective Allergies: Coded Allergies: CODEINE (Unverified Allergy, Unknown, 12/31/14) FLURAZEPAM (Unverified Allergy, Unknown, 12/31/14) PENICILLINS (Unverified Allergy, Unknown, 12/31/14) Subjective c/o diffuse abd pain anxious no vomiting on puree diet Objective Last 24 Hour Vital Signs Date Time Temp Pulse Resp B/P (MAP) Pulse Ox O2 Delivery O2 Flow Rate FiO2 06/25/17 17:27 122/67 06/25/17 17:27 68 122/67 06/25/17 16:00 97.3 68 18 122/67 99 Nasal Cannula 2.0 06/25/17 16:00 73 06/25/17 12:09 95 158/83 06/25/17 12:00 97.2 90 20 150/86 99 Nasal Cannula 2.0 06/25/17 12:00 79 06/25/17 09:45 95 158/83 06/25/17 09:45 95 158/83 06/25/17 09:44 158/83 06/25/17 08:10 Nasal Cannula 2.0 28 06/25/17 08:10 99 Nasal Cannula 2.0 28 06/25/17 08:00 90 06/25/17 08:00 98.8 95 18 155/81 99 Nasal Cannula 2.0 06/25/17 04:41 97.4 93 18 109/54 97 Nasal Cannula 06/25/17 04:00 79 06/25/17 00:34 96.4 76 20 127/66 Nasal Cannula 06/25/17 00:00 69 06/24/17 20:58 98 150/74 Intake and Output 06/24/17 06/25/17 19:00 07:00 Intake Total 1014.905 ml Output Total 600 ml Balance 414.905 ml Intake Oral 410 ml IV Total 604.905 ml Output Urine Total 600 ml Laboratory Tests 06/25/17 06:05: White Blood Count 2.9L, Red Blood Count 3.21L, Hemoglobin 10.7L, Hematocrit 33.3L, Mean Corpuscular Volume 104H, Mean Corpuscular Hemoglobin 33.4H, Mean Corpuscular Hemoglobin Concent 32.1, Red Cell Distribution Width 13.1, Platelet Count 55L, Mean Platelet Volume 7.2, Neutrophils (%) (Auto) , Lymphocytes (%) ( Auto) , Monocytes (%) (Auto) , Eosinophils (%) (Auto) , Basophils (%) (Auto) , Differential Total Cells Counted 100, Neutrophils % (Manual) 66, Lymphocytes % ( Manual) 22, Monocytes % (Manual) 11H, Eosinophils % (Manual) 1, Basophils % ( Manual) 0, Band Neutrophils 0, Platelet Estimate DecreasedL, Platelet Morphology Normal, Hypochromasia 1+, Macrocytosis 1+, Sodium Level 153H, Potassium Level 4.5, Chloride Level 117H, Carbon Dioxide Level 31, Anion Gap 5, Blood Urea Nitrogen 51H, Creatinine 1.4H, Estimat Glomerular Filtration Rate 38.1, Glucose Level 134H, Calcium Level 7.9L, Total Bilirubin 0.4, Aspartate Amino Transf (AST/SGOT) 37, Alanine Aminotransferase (ALT/SGPT) 15, Alkaline Phosphatase 43L, Total Protein 5.9L, Albumin 2.0L, Globulin 3.9, Albumin/ Globulin Ratio 0.5L Height (Feet): 5 Height (Inches): 6.00 Weight (Pounds): 334 Objective Obese WW NCAT supple CTA RRR soft ND (+) diffuse TTP (+) berrios non edema ILENE VELEZ Jun 25, 2017 20:15
[2017-06-25] MEDS: Atorvastatin 20mg tab ORAL SCH (23:12)
[2017-06-26] VITALS: BP 132/71
[2017-06-26 04:00] VITALS: BP 151/91
[2017-06-26] MEDS: NovoLOG Insulin Flexpen SUBQ SCH ×4 (07:18→22:50)
[2017-06-26 08:00] VITALS: BP 164/90
--- NOTE | 2017-06-26 08:18 | Pulmonology Progress Note ---
Assessment/Plan Assessment/Plan IMPRESSION: 1. Acute on chronic respiratory failure, 2. Profound hypercapnia. 3. Pleural effusion. 4. Possible pulmonary edema. 5. Renal failure. PLAN BIPAP refused no intervention available DNAR does not want intubation comfort measures ? monitor and recommend impression, plan, and exam edited and reviewed in detail care discussed with RN Subjective Allergies: Coded Allergies: CODEINE (Unverified Allergy, Unknown, 12/31/14) FLURAZEPAM (Unverified Allergy, Unknown, 12/31/14) PENICILLINS (Unverified Allergy, Unknown, 12/31/14) Subjective off bipap and refusing respiratory care on oxygen at present per patient, does not want anything done Objective Last 24 Hour Vital Signs Date Time Temp Pulse Resp B/P (MAP) Pulse Ox O2 Delivery O2 Flow Rate FiO2 06/26/17 08:15 97 Nasal Cannula 2.0 28 06/26/17 08:15 Nasal Cannula 2.0 28 06/26/17 04:00 98.2 89 20 151/91 94 06/26/17 04:00 84 06/26/17 00:00 70 06/26/17 00:00 97.7 73 24 132/71 90 Nasal Cannula 3.0 06/25/17 23:12 71 141/59 06/25/17 20:13 98.1 71 19 141/59 96 Nasal Cannula 3.0 06/25/17 20:00 80 06/25/17 19:30 Nasal Cannula 2.0 28 06/25/17 19:30 96 Nasal Cannula 2.0 28 06/25/17 17:27 122/67 06/25/17 17:27 68 122/67 06/25/17 16:00 97.3 68 18 122/67 99 Nasal Cannula 2.0 06/25/17 16:00 73 06/25/17 12:09 95 158/83 06/25/17 12:00 97.2 90 20 150/86 99 Nasal Cannula 2.0 06/25/17 12:00 79 06/25/17 09:45 95 158/83 06/25/17 09:45 95 158/83 06/25/17 09:44 158/83 Intake and Output 06/25/17 06/26/17 19:00 07:00 Intake Total 610 ml 240 ml Output Total 500 ml 900 ml Balance 110 ml -660 ml Intake Oral 610 ml 240 ml Output Urine Total 500 ml 900 ml # Bowel Movements 1 Objective GENERAL: The patient is an ill-appearing female. The patient is altered at present. HEENT: Fairly negative. NECK: Supple. LUNGS: With coarse breath sounds. Reduced overall. CARDIAC: S1 and S2. Regular rate and rhythm. ABDOMEN: Soft and nontender. EXTREMITIES: Without cyanosis. Current Medications Medications (Trade) Dose Ordered Sig/Brooks Route PRN Reason Start Time Stop Time Status Last Admin Dose Admin Al Hydroxide/Mg Hydroxide (Mylanta) 30 ml Q4HR PRN ORAL heartburn 06/25/17 01:00 07/21/17 13:44 Albuterol/ Ipratropium (Albuterol/ Ipratropium) 3 ml Q4H PRN HHN Shortness of Breath 06/25/17 02:45 06/26/17 14:44 Atorvastatin Calcium (Lipitor) 40 mg BEDTIME ORAL 06/25/17 21:00 07/25/17 20:59 06/25/17 23:12 Bupropion HCl (Wellbutrin XL) 450 mg DAILY ORAL 06/25/17 09:00 07/22/17 08:59 06/25/17 09:46 Cefepime HCl 2 gm/ Dextrose 55 ml @ 110 mls/hr EVERY 12 HOURS IVPB 06/25/17 09:00 06/30/17 20:59 06/25/17 23:12 Clopidogrel Bisulfate (Plavix) 75 mg DAILY ORAL 06/25/17 09:00 07/22/17 08:59 06/25/17 09:45 Dextrose 1,000 ml @ 75 mls/hr [id number] IV 06/25/17 12:00 07/25/17 11:59 06/26/17 03:11 Dextrose (Dextrose 50%) STAT PRN IV Hypoglycemia 06/25/17 14:15 07/21/17 14:14 Diltiazem HCl (Cardizem) 60 mg TID ORAL 06/25/17 09:00 07/24/17 12:59 06/25/17 17:27 Docusate Sodium (Colace) 250 mg TWICE A DAY ORAL 06/25/17 09:00 07/21/17 17:59 06/25/17 17:28 Doxycycline Monohydrate (Vibramycin) 100 mg EVERY 12 HOURS ORAL 06/25/17 09:00 07/01/17 13:29 06/25/17 23:13 Famotidine (Pepcid) 20 mg DAILY ORAL 06/25/17 09:00 07/25/17 08:59 06/25/17 09:57 Gabapentin (Neurontin) 300 mg Q12HR ORAL 06/25/17 09:00 07/21/17 20:59 06/25/17 23:12 Insulin Aspart (NovoLOG) BEFORE MEALS AND HS SUBQ 06/25/17 06:30 07/21/17 16:29 06/26/17 07:18 Isosorbide Mononitrate (Imdur) 30 mg BID ORAL 06/25/17 09:00 07/22/17 08:59 06/25/17 17:27 Methocarbamol (Robaxin) 500 mg Q12HR PRN ORAL MUSCLE SPASM LOWER BACK 06/25/17 09:00 07/21/17 13:44 Metoprolol Tartrate (Lopressor) 50 mg Q12HR ORAL 06/25/17 09:00 07/21/17 20:59 06/25/17 23:12 Morphine Sulfate (Morphine Sulfate) 1 mg Q6H PRN IVP Severe Pain (Pain Scale 7-10) 06/25/17 03:30 06/29/17 15:29 06/26/17 01:05 Nitroglycerin (Ntg) 0.4 mg Q5M PRN SL Prn Chest Pain 06/25/17 00:00 07/21/17 13:44 Nystatin (Nystop Powder) 1 applic THREE TIMES A DAY TOPIC 06/25/17 09:00 07/21/17 19:59 06/25/17 17:27 Ondansetron HCl (Zofran ODT) 8 mg BID PRN ORAL Nausea & Vomiting 06/25/17 09:00 07/21/17 13:44 Rivastigmine Tartrate (Exelon) 6 mg TWICE A DAY ORAL 06/25/17 09:00 07/21/17 17:59 06/25/17 17:28 Sennosides (Senokot) 1 tab DAILY ORAL 06/25/17 09:00 07/22/17 08:59 GLENN MILLARD Jun 26, 2017 08:17
--- NOTE | 2017-06-26 08:24 | Infectious Diseases Prog Note ---
Assessment/Plan Assessment/Plan A: Pneumonia UTI with VRE VRE colonization COPD Hypercapnic respiratory failure Chronic kidney disease Morbid obesity DM PCN allergy Cirrhosis P; Continue Cefepime, and Doxycycline Refused BIPAP & intubation Subjective ROS Limited/Unobtainable: Yes Allergies: Coded Allergies: CODEINE (Unverified Allergy, Unknown, 12/31/14) FLURAZEPAM (Unverified Allergy, Unknown, 12/31/14) PENICILLINS (Unverified Allergy, Unknown, 12/31/14) Objective Vital Signs Last 24 Hour Vital Signs Date Time Temp Pulse Resp B/P (MAP) Pulse Ox O2 Delivery O2 Flow Rate FiO2 06/26/17 08:15 97 Nasal Cannula 2.0 28 06/26/17 08:15 Nasal Cannula 2.0 28 06/26/17 04:00 98.2 89 20 151/91 94 06/26/17 04:00 84 06/26/17 00:00 70 06/26/17 00:00 97.7 73 24 132/71 90 Nasal Cannula 3.0 06/25/17 23:12 71 141/59 06/25/17 20:13 98.1 71 19 141/59 96 Nasal Cannula 3.0 06/25/17 20:00 80 06/25/17 19:30 Nasal Cannula 2.0 28 06/25/17 19:30 96 Nasal Cannula 2.0 28 06/25/17 17:27 122/67 06/25/17 17:27 68 122/67 06/25/17 16:00 97.3 68 18 122/67 99 Nasal Cannula 2.0 06/25/17 16:00 73 06/25/17 12:09 95 158/83 06/25/17 12:00 97.2 90 20 150/86 99 Nasal Cannula 2.0 06/25/17 12:00 79 06/25/17 09:45 95 158/83 06/25/17 09:45 95 158/83 06/25/17 09:44 158/83 Height (Feet): 5 Height (Inches): 6.00 Weight (Pounds): 335 HEENT: mucous membranes moist Respiratory/Chest: decreased breath sounds, other - O2 by cannula Cardiovascular: normal rate Abdomen: soft, non tender Extremities: no edema Neurologic/Psychiatric: other - sleeping Current Medications Medications (Trade) Dose Ordered Sig/Brooks Route PRN Reason Start Time Stop Time Status Last Admin Dose Admin Al Hydroxide/Mg Hydroxide (Mylanta) 30 ml Q4HR PRN ORAL heartburn 06/25/17 01:00 07/21/17 13:44 Albuterol/ Ipratropium (Albuterol/ Ipratropium) 3 ml Q4H PRN HHN Shortness of Breath 06/25/17 02:45 06/26/17 14:44 Atorvastatin Calcium (Lipitor) 40 mg BEDTIME ORAL 06/25/17 21:00 07/25/17 20:59 06/25/17 23:12 Bupropion HCl (Wellbutrin XL) 450 mg DAILY ORAL 06/25/17 09:00 07/22/17 08:59 06/25/17 09:46 Cefepime HCl 2 gm/ Dextrose 55 ml @ 110 mls/hr EVERY 12 HOURS IVPB 06/25/17 09:00 06/30/17 20:59 06/25/17 23:12 Clopidogrel Bisulfate (Plavix) 75 mg DAILY ORAL 06/25/17 09:00 07/22/17 08:59 06/25/17 09:45 Dextrose 1,000 ml @ 75 mls/hr [id number] IV 06/25/17 12:00 07/25/17 11:59 06/26/17 03:11 Dextrose (Dextrose 50%) STAT PRN IV Hypoglycemia 06/25/17 14:15 07/21/17 14:14 Diltiazem HCl (Cardizem) 60 mg TID ORAL 06/25/17 09:00 07/24/17 12:59 06/25/17 17:27 Docusate Sodium (Colace) 250 mg TWICE A DAY ORAL 06/25/17 09:00 07/21/17 17:59 06/25/17 17:28 Doxycycline Monohydrate (Vibramycin) 100 mg EVERY 12 HOURS ORAL 06/25/17 09:00 07/01/17 13:29 06/25/17 23:13 Famotidine (Pepcid) 20 mg DAILY ORAL 06/25/17 09:00 07/25/17 08:59 06/25/17 09:57 Gabapentin (Neurontin) 300 mg Q12HR ORAL 06/25/17 09:00 07/21/17 20:59 06/25/17 23:12 Insulin Aspart (NovoLOG) BEFORE MEALS AND HS SUBQ 06/25/17 06:30 07/21/17 16:29 06/26/17 07:18 Isosorbide Mononitrate (Imdur) 30 mg BID ORAL 06/25/17 09:00 07/22/17 08:59 06/25/17 17:27 Methocarbamol (Robaxin) 500 mg Q12HR PRN ORAL MUSCLE SPASM LOWER BACK 06/25/17 09:00 07/21/17 13:44 Metoprolol Tartrate (Lopressor) 50 mg Q12HR ORAL 06/25/17 09:00 07/21/17 20:59 06/25/17 23:12 Morphine Sulfate (Morphine Sulfate) 1 mg Q6H PRN IVP Severe Pain (Pain Scale 7-10) 06/25/17 03:30 06/29/17 15:29 06/26/17 01:05 Nitroglycerin (Ntg) 0.4 mg Q5M PRN SL Prn Chest Pain 06/25/17 00:00 07/21/17 13:44 Nystatin (Nystop Powder) 1 applic THREE TIMES A DAY TOPIC 06/25/17 09:00 07/21/17 19:59 06/25/17 17:27 Ondansetron HCl (Zofran ODT) 8 mg BID PRN ORAL Nausea & Vomiting 06/25/17 09:00 07/21/17 13:44 Rivastigmine Tartrate (Exelon) 6 mg TWICE A DAY ORAL 06/25/17 09:00 07/21/17 17:59 06/25/17 17:28 Sennosides (Senokot) 1 tab DAILY ORAL 06/25/17 09:00 07/22/17 08:59 LUIZ ELDRIDGE Jun 26, 2017 08:24
[2017-06-26] MEDS: Imdur 30mg tab ORAL SCH ×2 (08:35→17:16)
[2017-06-26] MEDS: Metoprolol Tartrate 50mg tab ORAL SCH ×2 (08:36→21:00)
[2017-06-26] MEDS: BuPROPion XL 150mg tab ORAL SCH (08:36)
[2017-06-26] MEDS: dilTIAZem HCl 60mg tab ORAL SCH ×3 (08:37→17:17)
[2017-06-26] MEDS: Docusate 250mg cap ORAL SCH ×2 (08:37→17:14)
[2017-06-26] MEDS: Exelon 1.5mg cap ORAL SCH ×2 (08:37→17:16)
[2017-06-26] MEDS: Nystatin Powder 100,000 units/gm 15gm TOPIC SCH ×3 (08:37→17:14)
[2017-06-26] MEDS: Sennosides 8.6mg ORAL SCH (08:37)
--- NOTE | 2017-06-26 08:49 | Cardiac Electrophysiology PN ---
Assessment/Plan Assessment/Plan 1. Paroxysmal Atrial fib with RVR. In SR today on Cardizem 60 tid and Toprol 50 bid. Off anticoagulation for thrombocytopenia. 2. Kle-NZ-rnaazmhde myocardial infarction and troponin of 0.78. The patient does not want any invasive procedure . Continue treat medically with aspirin, Plavix, beta-moon, Imdur and Lipitor 3. Morbid obesity. 4. Hypertension, on Cardizem 60 tid and Toprol 50 bid. 5. Pancytopenia. Further evaluation by Dr. Muñoz including platelet count of 50,000. 6. Hypercarbic respiratory failure. The patient is refusing BiPAP. 7. Do Not Resuscitate/DNI. Hopsice consult in progress DW RN Subjective Subjective Remained in SR. No chest pain or SOB. Comfortable in NAD. Objective Last 24 Hour Vital Signs Date Time Temp Pulse Resp B/P (MAP) Pulse Ox O2 Delivery O2 Flow Rate FiO2 06/26/17 08:37 81 164/90 06/26/17 08:36 81 164/90 06/26/17 08:35 164/90 06/26/17 08:15 97 Nasal Cannula 2.0 28 06/26/17 08:15 Nasal Cannula 2.0 28 06/26/17 04:00 98.2 89 20 151/91 94 06/26/17 04:00 84 06/26/17 00:00 70 06/26/17 00:00 97.7 73 24 132/71 90 Nasal Cannula 3.0 06/25/17 23:12 71 141/59 06/25/17 20:13 98.1 71 19 141/59 96 Nasal Cannula 3.0 06/25/17 20:00 80 06/25/17 19:30 Nasal Cannula 2.0 28 06/25/17 19:30 96 Nasal Cannula 2.0 28 06/25/17 17:27 122/67 06/25/17 17:27 68 122/67 06/25/17 16:00 97.3 68 18 122/67 99 Nasal Cannula 2.0 06/25/17 16:00 73 06/25/17 12:09 95 158/83 06/25/17 12:00 97.2 90 20 150/86 99 Nasal Cannula 2.0 06/25/17 12:00 79 06/25/17 09:45 95 158/83 06/25/17 09:45 95 158/83 06/25/17 09:44 158/83 Intake and Output 06/25/17 06/26/17 19:00 07:00 Intake Total 610 ml 240 ml Output Total 500 ml 900 ml Balance 110 ml -660 ml Intake Oral 610 ml 240 ml Output Urine Total 500 ml 900 ml # Bowel Movements 1 Objective HEAD AND NECK: Showed no JVD. LUNGS: Decreased breath sounds. CARDIOVASCULAR: Regular S1 and s2 with No G/M ABDOMEN: Morbidly obese. EXTREMITIES: 1 plus pitting edema. LE BENSON Jun 26, 2017 08:49
[2017-06-26] MEDS: Cefepime HCl 2 GM in D5W 55 ML IVPB SCH (09:14)
--- NOTE | 2017-06-26 10:28 | Nephrology Progress Note ---
Assessment/Plan Problem List: (1) Acute on chronic renal failure (2) Respiratory failure (3) Pneumonia (4) UTI (urinary tract infection) Assessment Na 153 today Renal failure- Has a chronic component with ? superimposed acute- in December 2014 the Cr was 2.2 now 1.6 Acute respiratory failure, ON BIPAP Morbid obesity Diabetic Nephropathy COPD Depression Dementia HypoAlbuminemia ? Nephrotic Syndrom Plan Plan: no labs today on Cardiazem PO DNR DNI Slow hydrate with D5w pul support 24 h urine CrCl and protein non nephrotic Urine studies keep BP and BS incheck adjust BP meds per consultants Subjective ROS Limited/Unobtainable: No Constitutional: Reports: malaise Objective Objective Last 24 Hour Vital Signs Date Time Temp Pulse Resp B/P (MAP) Pulse Ox O2 Delivery O2 Flow Rate FiO2 06/26/17 08:37 81 164/90 06/26/17 08:36 81 164/90 06/26/17 08:35 164/90 06/26/17 08:15 97 Nasal Cannula 2.0 28 06/26/17 08:15 Nasal Cannula 2.0 28 06/26/17 08:00 97.9 90 20 164/90 97 06/26/17 08:00 97.9 90 20 164/90 97 Nasal Cannula 3.0 90 06/26/17 04:00 98.2 89 20 151/91 94 06/26/17 04:00 84 06/26/17 00:00 70 06/26/17 00:00 97.7 73 24 132/71 90 Nasal Cannula 3.0 06/25/17 23:12 71 141/59 06/25/17 20:13 98.1 71 19 141/59 96 Nasal Cannula 3.0 06/25/17 20:00 80 06/25/17 19:30 Nasal Cannula 2.0 28 06/25/17 19:30 96 Nasal Cannula 2.0 28 06/25/17 17:27 122/67 06/25/17 17:27 68 122/67 06/25/17 16:00 97.3 68 18 122/67 99 Nasal Cannula 2.0 06/25/17 16:00 73 06/25/17 12:09 95 158/83 06/25/17 12:00 97.2 90 20 150/86 99 Nasal Cannula 2.0 06/25/17 12:00 79 Intake and Output 06/25/17 06/26/17 19:00 07:00 Intake Total 610 ml 240 ml Output Total 500 ml 900 ml Balance 110 ml -660 ml Intake Oral 610 ml 240 ml Output Urine Total 500 ml 900 ml # Bowel Movements 1 Height (Feet): 5 Height (Inches): 6.00 Weight (Pounds): 335 General Appearance: no apparent distress Objective no change TALIA ROGERS Jun 26, 2017 10:28
[2017-06-26 12:00] VITALS: BP 136/71
--- NOTE | 2017-06-26 14:56 | General Progress Note ---
Assessment/Plan Assessment/Plan Assessment/Plan Problems: (1) Abdominal pain ICD Codes: R10.9 - Unspecified abdominal pain SNOMED: 18484973 (2) Cirrhosis ICD Codes: K74.60 - Unspecified cirrhosis of liver SNOMED: 93075723 (3) Portal hypertension ICD Codes: K76.6 - Portal hypertension SNOMED: 80585946 (4) Constipation ICD Codes: K59.00 - Constipation, unspecified SNOMED: 21533429 (5) Vomiting ICD Codes: R11.10 - Vomiting, unspecified SNOMED: 241369639 Assessment/Plan CT AP reviewed >> Evidence of chronic liver disease/cirrhosis with stigmata of portal hypertension including trace ascites and splenomegaly, see full report. hepatitis C positive pancytopenia most likely due to liver disease elevated troponin levels patient is on plavix defer any GI procedures, conservative management and supportive care >> will require cardiac clearance prior any proceduers monitor H&H, prn transfusions ppi daily manage portal HTN >> consider non-selective beta moon >> propranolol 10mg BID and titrate to goal SBP 100-120, hold for SBP < 100 or HR < 60. fu labs per consultants Subjective Allergies: Coded Allergies: CODEINE (Unverified Allergy, Unknown, 12/31/14) FLURAZEPAM (Unverified Allergy, Unknown, 12/31/14) PENICILLINS (Unverified Allergy, Unknown, 12/31/14) Subjective c/o diffuse abd pain, but better anxious no vomiting on puree diet Objective Last 24 Hour Vital Signs Date Time Temp Pulse Resp B/P (MAP) Pulse Ox O2 Delivery O2 Flow Rate FiO2 06/26/17 12:27 81 134/76 06/26/17 12:00 63 06/26/17 12:00 97.7 67 21 136/71 99 06/26/17 08:37 81 164/90 06/26/17 08:36 81 164/90 06/26/17 08:35 164/90 06/26/17 08:15 97 Nasal Cannula 2.0 28 06/26/17 08:15 Nasal Cannula 2.0 28 06/26/17 08:00 97.9 90 20 164/90 97 06/26/17 08:00 86 06/26/17 08:00 97.9 90 20 164/90 97 Nasal Cannula 3.0 90 06/26/17 04:00 98.2 89 20 151/91 94 06/26/17 04:00 84 06/26/17 00:00 70 06/26/17 00:00 97.7 73 24 132/71 90 Nasal Cannula 3.0 06/25/17 23:12 71 141/59 06/25/17 20:13 98.1 71 19 141/59 96 Nasal Cannula 3.0 06/25/17 20:00 80 06/25/17 19:30 Nasal Cannula 2.0 28 06/25/17 19:30 96 Nasal Cannula 2.0 28 06/25/17 17:27 122/67 06/25/17 17:27 68 122/67 06/25/17 16:00 97.3 68 18 122/67 99 Nasal Cannula 2.0 06/25/17 16:00 73 Intake and Output 06/25/17 06/26/17 19:00 07:00 Intake Total 610 ml 240 ml Output Total 500 ml 900 ml Balance 110 ml -660 ml Intake Oral 610 ml 240 ml Output Urine Total 500 ml 900 ml # Bowel Movements 1 Height (Feet): 5 Height (Inches): 6.00 Weight (Pounds): 335 Objective Obese WW NCAT supple CTA RRR soft ND (+) diffuse TTP (+) berrios non edema ILENE VELEZ Jun 26, 2017 14:56
[2017-06-26 16:00] VITALS: BP 149/79
[2017-06-26] MEDS ORDERED: Tubing IV Secondary IV ONE (17:07)
--- NOTE | 2017-06-26 18:49 | General Progress Note ---
Assessment/Plan Assessment/Plan ASSESSMENT AND RECOMMENDATIONS: 1. Pancytopenia, likely due to liver disease/cirrhosis. --> continue to monitor, ANC goal is above 1000 --> CT AP: Evidence of chronic liver disease/cirrhosis with stigmata of portal hypertension including trace ascites and splenomegaly --> plt goal above 20K 2. Anemia secondary to chronic kidney disease. 3. Elevated troponin, non-ST elevation myocardial infarction. Cardiology service following. 4. Chronic obstructive pulmonary disease exacerbation versus pneumonia. 5. She is on BiPAP currently and is DNR. On antibiotics as per Pulmonary team. 6. Chronic kidney disease Subjective Allergies: Coded Allergies: CODEINE (Unverified Allergy, Unknown, 12/31/14) FLURAZEPAM (Unverified Allergy, Unknown, 12/31/14) PENICILLINS (Unverified Allergy, Unknown, 12/31/14) All Systems: reviewed and negative except above Subjective unchanged Objective Last 24 Hour Vital Signs Date Time Temp Pulse Resp B/P (MAP) Pulse Ox O2 Delivery O2 Flow Rate FiO2 06/26/17 17:17 81 134/76 06/26/17 17:16 134/76 06/26/17 16:00 54 06/26/17 16:00 98.1 67 17 149/79 96 Nasal Cannula 3.0 06/26/17 12:27 81 134/76 06/26/17 12:00 63 06/26/17 12:00 97.7 67 21 136/71 99 06/26/17 08:37 81 164/90 06/26/17 08:36 81 164/90 06/26/17 08:35 164/90 06/26/17 08:15 97 Nasal Cannula 2.0 28 06/26/17 08:15 Nasal Cannula 2.0 28 06/26/17 08:00 97.9 90 20 164/90 97 06/26/17 08:00 86 06/26/17 08:00 97.9 90 20 164/90 97 Nasal Cannula 3.0 90 06/26/17 04:00 98.2 89 20 151/91 94 06/26/17 04:00 84 06/26/17 00:00 70 06/26/17 00:00 97.7 73 24 132/71 90 Nasal Cannula 3.0 06/25/17 23:12 71 141/59 06/25/17 20:13 98.1 71 19 141/59 96 Nasal Cannula 3.0 06/25/17 20:00 80 06/25/17 19:30 Nasal Cannula 2.0 28 06/25/17 19:30 96 Nasal Cannula 2.0 28 Intake and Output 06/25/17 06/26/17 19:00 07:00 Intake Total 610 ml 240 ml Output Total 500 ml 900 ml Balance 110 ml -660 ml Intake Oral 610 ml 240 ml Output Urine Total 500 ml 900 ml # Bowel Movements 1 Height (Feet): 5 Height (Inches): 6.00 Weight (Pounds): 335 General Appearance: no apparent distress EENT: normal ENT inspection Neck: normal alignment Respiratory/Chest: chest wall non-tender Extremities: non-tender Edema: trace edema Skin: normal pigmentation Phoenix Muñoz Jun 26, 2017 18:48
[2017-06-26 20:00] VITALS: BP 146/69
[2017-06-26] MEDS: Atorvastatin 20mg tab ORAL SCH (21:00)
[2017-06-27] VITALS (7 sets, daily range): BP systolic 129–156; BP diastolic 50–85
[2017-06-27] MEDS ORDERED: Heparin 2000 units/Ns 1000ml INJ SCH (06:00)
[2017-06-27] MEDS ORDERED: Lidocaine 1% Plain 30 ml INJ SCH (06:00)
[2017-06-27] MEDS: NovoLOG Insulin Flexpen SUBQ SCH ×4 (06:08→21:07)
[2017-06-27 07:48] LABS: HEMATOCRIT 35.4 % (37.0-47.0); HEMOGLOBIN 11.3 G/DL (12.0-16.0); MEAN CORPUSCULAR VOLUME 103 FL (80-99); PLATELET COUNT 63 K/UL (150-450); RED BLOOD COUNT 3.44 M/UL (4.20-5.40); RED CELL DISTRIBUTION WIDTH 13.1 % (11.6-14.8); WHITE BLOOD COUNT 4.1 K/UL (4.8-10.8)
[2017-06-27 08:08] LABS: ALANINE AMINOTRANSFERASE 12 U/L (12-78); ALBUMIN/GLOBULIN RATIO 0.4 (1.0-2.7); ALKALINE PHOSPHATASE 48 U/L (46-116); ANION GAP 3 mmol/L (5-15); ASPARTATE AMINO TRANSFERASE 31 U/L (15-37); BILIRUBIN,TOTAL 0.5 MG/DL (0.2-1.0); BLOOD UREA NITROGEN 53 mg/dL (7-18); CARBON DIOXIDE 33 MMOL/L (21-32); CHLORIDE 109 MMOL/L (98-107); CREATININE 1.8 MG/DL (0.55-1.30); PHOSPHORUS 3.3 MG/DL (2.5-4.9); POTASSIUM 5.1 MMOL/L (3.5-5.1); SODIUM 145 MMOL/L (136-145)
--- NOTE | 2017-06-27 08:30 | Pulmonology Progress Note ---
Assessment/Plan Assessment/Plan IMPRESSION: 1. Acute on chronic respiratory failure, 2. Profound hypercapnia. 3. Pleural effusion. 4. Possible pulmonary edema. 5. Renal failure. PLAN BIPAP refused no intervention available DNAR does not want intubation saturations adequate monitor and recommend impression, plan, and exam edited and reviewed in detail care discussed with RN Subjective Allergies: Coded Allergies: CODEINE (Unverified Allergy, Unknown, 12/31/14) FLURAZEPAM (Unverified Allergy, Unknown, 12/31/14) PENICILLINS (Unverified Allergy, Unknown, 12/31/14) Subjective reduced LOC on oxygen Objective Last 24 Hour Vital Signs Date Time Temp Pulse Resp B/P (MAP) Pulse Ox O2 Delivery O2 Flow Rate FiO2 06/27/17 07:21 Nasal Cannula 2.0 28 06/27/17 07:21 99 Nasal Cannula 2.0 28 06/27/17 04:00 62 06/27/17 04:00 96.3 66 22 145/76 100 Nasal Cannula 3.0 06/27/17 00:00 57 06/27/17 00:00 96.0 59 24 129/67 100 Nasal Cannula 3.0 06/26/17 21:00 52 146/69 06/26/17 20:00 48 06/26/17 20:00 96.4 52 26 146/69 100 Nasal Cannula 3.0 06/26/17 19:30 Nasal Cannula 2.0 28 06/26/17 19:30 95 Nasal Cannula 2.0 28 06/26/17 17:17 81 134/76 06/26/17 17:16 134/76 06/26/17 16:00 54 06/26/17 16:00 98.1 67 17 149/79 96 Nasal Cannula 3.0 06/26/17 12:27 81 134/76 06/26/17 12:00 63 06/26/17 12:00 97.7 67 21 136/71 99 06/26/17 08:37 81 164/90 06/26/17 08:36 81 164/90 06/26/17 08:35 164/90 Intake and Output 06/26/17 06/27/17 19:00 07:00 Intake Total 480 ml Output Total 400 ml 200 ml Balance -400 ml 280 ml Intake Oral 480 ml Output Urine Total 400 ml 200 ml Objective GENERAL: The patient is an ill-appearing female. remains altered HEENT: Fairly negative. NECK: Supple. LUNGS: With coarse breath sounds. Reduced overall. CARDIAC: S1 and S2. Regular rate and rhythm. ABDOMEN: Soft and nontender. EXTREMITIES: Without cyanosis. Laboratory Tests 06/27/17 06:20: White Blood Count 4.1L, Red Blood Count 3.44L, Hemoglobin 11.3L, Hematocrit 35.4L, Mean Corpuscular Volume 103H, Mean Corpuscular Hemoglobin 32.9H, Mean Corpuscular Hemoglobin Concent 32.0, Red Cell Distribution Width 13.1, Platelet Count 63L, Mean Platelet Volume 8.6, Neutrophils (%) (Auto) , Lymphocytes (%) ( Auto) , Monocytes (%) (Auto) , Eosinophils (%) (Auto) , Basophils (%) (Auto) , Neutrophils % (Manual) [Pending], Lymphocytes % (Manual) [Pending], Platelet Estimate [Pending], Platelet Morphology [Pending], Sodium Level 145, Potassium Level 5.1, Chloride Level 109H, Carbon Dioxide Level 33H, Anion Gap 3L, Blood Urea Nitrogen 53H, Creatinine 1.8H, Estimat Glomerular Filtration Rate 28.5, Glucose Level 196H, Calcium Level 8.0L, Phosphorus Level 3.3, Magnesium Level 1.7L, Total Bilirubin 0.5, Aspartate Amino Transf (AST/SGOT) 31, Alanine Aminotransferase (ALT/SGPT) 12, Alkaline Phosphatase 48, C-Reactive Protein, Quantitative 2.6H, Pro-B-Type Natriuretic Peptide > 20591X, Total Protein 6.9, Albumin 2.0L, Globulin 4.9, Albumin/Globulin Ratio 0.4L Current Medications Medications (Trade) Dose Ordered Sig/Brooks Route PRN Reason Start Time Stop Time Status Last Admin Dose Admin Al Hydroxide/Mg Hydroxide (Mylanta) 30 ml Q4HR PRN ORAL heartburn 06/25/17 01:00 07/21/17 13:44 Atorvastatin Calcium (Lipitor) 40 mg BEDTIME ORAL 06/25/17 21:00 07/25/17 20:59 06/26/17 21:00 Bupropion HCl (Wellbutrin XL) 450 mg DAILY ORAL 06/25/17 09:00 07/22/17 08:59 06/26/17 08:36 Chlorhexidine Gluconate (Sally-Hex 2%) 1 applic DAILY@2000 TOPIC 06/27/17 20:00 07/27/17 19:59 Clopidogrel Bisulfate (Plavix) 75 mg DAILY ORAL 06/25/17 09:00 07/22/17 08:59 06/26/17 08:35 Dextrose (Dextrose 50%) STAT PRN IV Hypoglycemia 06/25/17 14:15 07/21/17 14:14 Diltiazem HCl (Cardizem) 60 mg TID ORAL 06/25/17 09:00 07/24/17 12:59 06/26/17 17:17 Docusate Sodium (Colace) 250 mg TWICE A DAY ORAL 06/25/17 09:00 07/21/17 17:59 06/25/17 17:28 Doxycycline Monohydrate (Vibramycin) 100 mg EVERY 12 HOURS ORAL 06/25/17 09:00 07/01/17 13:29 06/26/17 21:00 Famotidine (Pepcid) 20 mg DAILY ORAL 06/25/17 09:00 07/25/17 08:59 06/26/17 08:35 Gabapentin (Neurontin) 300 mg Q12HR ORAL 06/25/17 09:00 07/21/17 20:59 06/26/17 21:00 Insulin Aspart (NovoLOG) BEFORE MEALS AND HS SUBQ 06/25/17 06:30 07/21/17 16:29 06/27/17 06:08 Isosorbide Mononitrate (Imdur) 30 mg BID ORAL 06/25/17 09:00 07/22/17 08:59 06/26/17 17:16 Levofloxacin (Levaquin) 750 mg QOD ORAL 06/26/17 21:00 07/03/17 20:59 06/26/17 21:00 Methocarbamol (Robaxin) 500 mg Q12HR PRN ORAL MUSCLE SPASM LOWER BACK 06/25/17 09:00 07/21/17 13:44 Metoprolol Tartrate (Lopressor) 50 mg Q12HR ORAL 06/25/17 09:00 07/21/17 20:59 06/26/17 08:36 Morphine Sulfate (Morphine Sulfate) 1 mg Q6H PRN IVP Severe Pain (Pain Scale 7-10) 06/25/17 03:30 06/29/17 15:29 06/26/17 01:05 Nitroglycerin (Ntg) 0.4 mg Q5M PRN SL Prn Chest Pain 06/25/17 00:00 07/21/17 13:44 Nystatin (Nystop Powder) 1 applic THREE TIMES A DAY TOPIC 06/25/17 09:00 07/21/17 19:59 06/26/17 17:14 Ondansetron HCl (Zofran ODT) 8 mg BID PRN ORAL Nausea & Vomiting 06/25/17 09:00 07/21/17 13:44 Rivastigmine Tartrate (Exelon) 6 mg TWICE A DAY ORAL 06/25/17 09:00 07/21/17 17:59 06/26/17 17:16 Sennosides (Senokot) 1 tab DAILY ORAL 06/25/17 09:00 07/22/17 08:59 GLENN MILLARD Jun 27, 2017 08:30
[2017-06-27] MEDS: dilTIAZem HCl 60mg tab ORAL SCH ×3 (09:00→17:08)
--- NOTE | 2017-06-27 09:03 | Infectious Diseases Prog Note ---
Assessment/Plan Assessment/Plan A: Pneumonia UTI with VRE VRE colonization COPD Hypercapnic respiratory failure Chronic kidney disease Morbid obesity DM PCN allergy Cirrhosis P; Continue Levaquin and Doxycycline Refused BIPAP & intubation Subjective ROS Limited/Unobtainable: Yes Neurologic: Reports: other - more alert Allergies: Coded Allergies: CODEINE (Unverified Allergy, Unknown, 12/31/14) FLURAZEPAM (Unverified Allergy, Unknown, 12/31/14) PENICILLINS (Unverified Allergy, Unknown, 12/31/14) Objective Vital Signs Last 24 Hour Vital Signs Date Time Temp Pulse Resp B/P (MAP) Pulse Ox O2 Delivery O2 Flow Rate FiO2 06/27/17 07:21 Nasal Cannula 2.0 28 06/27/17 07:21 99 Nasal Cannula 2.0 28 06/27/17 04:00 62 06/27/17 04:00 96.3 66 22 145/76 100 Nasal Cannula 3.0 06/27/17 00:00 57 06/27/17 00:00 96.0 59 24 129/67 100 Nasal Cannula 3.0 06/26/17 21:00 52 146/69 06/26/17 20:00 48 06/26/17 20:00 96.4 52 26 146/69 100 Nasal Cannula 3.0 06/26/17 19:30 Nasal Cannula 2.0 28 06/26/17 19:30 95 Nasal Cannula 2.0 28 06/26/17 17:17 81 134/76 06/26/17 17:16 134/76 06/26/17 16:00 54 06/26/17 16:00 98.1 67 17 149/79 96 Nasal Cannula 3.0 06/26/17 12:27 81 134/76 06/26/17 12:00 63 06/26/17 12:00 97.7 67 21 136/71 99 Height (Feet): 5 Height (Inches): 6.00 Weight (Pounds): 337 HEENT: mucous membranes moist Respiratory/Chest: lungs clear Cardiovascular: normal rate, other - has peroids of bradycardia Abdomen: soft, non tender Extremities: no edema Neurologic/Psychiatric: alert, responsive Laboratory Tests Test 06/27/17 06:20 White Blood Count 4.1 K/UL (4.8-10.8) L Red Blood Count 3.44 M/UL (4.20-5.40) L Hemoglobin 11.3 G/DL (12.0-16.0) L Hematocrit 35.4 % (37.0-47.0) L Mean Corpuscular Volume 103 FL (80-99) H Mean Corpuscular Hemoglobin 32.9 PG (27.0-31.0) H Mean Corpuscular Hemoglobin Concent 32.0 G/DL (32.0-36.0) Red Cell Distribution Width 13.1 % (11.6-14.8) Platelet Count 63 K/UL (150-450) L Mean Platelet Volume 8.6 FL (6.5-10.1) Neutrophils (%) (Auto) % (45.0-75.0) Lymphocytes (%) (Auto) % (20.0-45.0) Monocytes (%) (Auto) % (1.0-10.0) Eosinophils (%) (Auto) % (0.0-3.0) Basophils (%) (Auto) % (0.0-2.0) Neutrophils % (Manual) Pending Lymphocytes % (Manual) Pending Platelet Estimate Pending Platelet Morphology Pending Sodium Level 145 MMOL/L (136-145) Potassium Level 5.1 MMOL/L (3.5-5.1) Chloride Level 109 MMOL/L (98-107) H Carbon Dioxide Level 33 MMOL/L (21-32) H Anion Gap 3 mmol/L (5-15) L Blood Urea Nitrogen 53 mg/dL (7-18) H Creatinine 1.8 MG/DL (0.55-1.30) H Estimat Glomerular Filtration Rate 28.5 mL/min (>60) Glucose Level 196 MG/DL (74-106) H Calcium Level 8.0 MG/DL (8.5-10.1) L Phosphorus Level 3.3 MG/DL (2.5-4.9) Magnesium Level 1.7 MG/DL (1.8-2.4) L Total Bilirubin 0.5 MG/DL (0.2-1.0) Aspartate Amino Transf (AST/SGOT) 31 U/L (15-37) Alanine Aminotransferase (ALT/SGPT) 12 U/L (12-78) Alkaline Phosphatase 48 U/L (46-116) C-Reactive Protein, Quantitative 2.6 mg/dL (0.00-0.90) H Pro-B-Type Natriuretic Peptide > 13324 pg/mL (0-125) H Total Protein 6.9 G/DL (6.4-8.2) Albumin 2.0 G/DL (3.4-5.0) L Globulin 4.9 g/dL Albumin/Globulin Ratio 0.4 (1.0-2.7) L Current Medications Medications (Trade) Dose Ordered Sig/Brooks Route PRN Reason Start Time Stop Time Status Last Admin Dose Admin Al Hydroxide/Mg Hydroxide (Mylanta) 30 ml Q4HR PRN ORAL heartburn 06/25/17 01:00 07/21/17 13:44 Atorvastatin Calcium (Lipitor) 40 mg BEDTIME ORAL 06/25/17 21:00 07/25/17 20:59 06/26/17 21:00 Bupropion HCl (Wellbutrin XL) 450 mg DAILY ORAL 06/25/17 09:00 07/22/17 08:59 06/26/17 08:36 Chlorhexidine Gluconate (Sally-Hex 2%) 1 applic DAILY@2000 TOPIC 06/27/17 20:00 07/27/17 19:59 Clopidogrel Bisulfate (Plavix) 75 mg DAILY ORAL 06/25/17 09:00 07/22/17 08:59 06/26/17 08:35 Dextrose (Dextrose 50%) STAT PRN IV Hypoglycemia 06/25/17 14:15 07/21/17 14:14 Diltiazem HCl (Cardizem) 60 mg TID ORAL 06/25/17 09:00 07/24/17 12:59 06/26/17 17:17 Docusate Sodium (Colace) 250 mg TWICE A DAY ORAL 06/25/17 09:00 07/21/17 17:59 06/25/17 17:28 Doxycycline Monohydrate (Vibramycin) 100 mg EVERY 12 HOURS ORAL 06/25/17 09:00 07/01/17 13:29 06/26/17 21:00 Famotidine (Pepcid) 20 mg DAILY ORAL 06/25/17 09:00 07/25/17 08:59 06/26/17 08:35 Gabapentin (Neurontin) 300 mg Q12HR ORAL 06/25/17 09:00 07/21/17 20:59 06/26/17 21:00 Insulin Aspart (NovoLOG) BEFORE MEALS AND HS SUBQ 06/25/17 06:30 07/21/17 16:29 06/27/17 06:08 Isosorbide Mononitrate (Imdur) 30 mg BID ORAL 06/25/17 09:00 07/22/17 08:59 06/26/17 17:16 Levofloxacin (Levaquin) 750 mg QOD ORAL 06/26/17 21:00 07/03/17 20:59 06/26/17 21:00 Methocarbamol (Robaxin) 500 mg Q12HR PRN ORAL MUSCLE SPASM LOWER BACK 06/25/17 09:00 07/21/17 13:44 Metoprolol Tartrate (Lopressor) 50 mg Q12HR ORAL 06/25/17 09:00 07/21/17 20:59 06/26/17 08:36 Morphine Sulfate (Morphine Sulfate) 1 mg Q6H PRN IVP Severe Pain (Pain Scale 7-10) 06/25/17 03:30 06/29/17 15:29 06/26/17 01:05 Nitroglycerin (Ntg) 0.4 mg Q5M PRN SL Prn Chest Pain 06/25/17 00:00 07/21/17 13:44 Nystatin (Nystop Powder) 1 applic THREE TIMES A DAY TOPIC 06/25/17 09:00 07/21/17 19:59 06/26/17 17:14 Ondansetron HCl (Zofran ODT) 8 mg BID PRN ORAL Nausea & Vomiting 06/25/17 09:00 07/21/17 13:44 Rivastigmine Tartrate (Exelon) 6 mg TWICE A DAY ORAL 06/25/17 09:00 07/21/17 17:59 06/26/17 17:16 Sennosides (Senokot) 1 tab DAILY ORAL 06/25/17 09:00 07/22/17 08:59 LUIZ ELDRIDGE Jun 27, 2017 09:03
[2017-06-27] MEDS: BuPROPion XL 150mg tab ORAL SCH (09:37)
[2017-06-27] MEDS: Sennosides 8.6mg ORAL SCH (09:37)
[2017-06-27] MEDS: Exelon 1.5mg cap ORAL SCH ×2 (09:39→17:07)
[2017-06-27] MEDS: Imdur 30mg tab ORAL SCH ×2 (09:40→17:07)
[2017-06-27] MEDS: Metoprolol Tartrate 50mg tab ORAL SCH ×2 (09:40→20:56)
[2017-06-27] MEDS: Docusate 250mg cap ORAL SCH ×2 (09:41→17:06)
[2017-06-27] MEDS: Nystatin Powder 100,000 units/gm 15gm TOPIC SCH ×3 (09:42→17:08)
--- NOTE | 2017-06-27 12:35 | Cardiac Electrophysiology PN ---
Assessment/Plan Assessment/Plan 1. Paroxysmal Atrial fib with RVR. In SR on Cardizem 60 tid and Toprol 50 bid. Off anticoagulation for thrombocytopenia. 2. Jjb-EN-pjahadaar myocardial infarction and troponin of 0.78. The patient does not want any invasive procedure . Continue treat medically with aspirin, Plavix, beta-moon, Imdur and Lipitor 3. Morbid obesity. 4. Hypertension, continue Cardizem 60 tid and Toprol 50 bid. 5. Pancytopenia. F/U by Dr. Muñoz including platelet count of 50,000. 6. Hypercarbic respiratory failure. The patient is refusing BiPAP. 7. Do Not Resuscitate/DNI. Hopsice consult in progress DW RN Subjective Subjective Remained in SR. No chest pain or SOB. No events Objective Last 24 Hour Vital Signs Date Time Temp Pulse Resp B/P (MAP) Pulse Ox O2 Delivery O2 Flow Rate FiO2 06/27/17 09:40 96 135/64 06/27/17 09:40 135/64 06/27/17 09:00 96 135/64 06/27/17 08:00 96.3 69 22 135/64 96 Nasal Cannula 3.0 06/27/17 08:00 65 06/27/17 07:21 Nasal Cannula 2.0 28 06/27/17 07:21 99 Nasal Cannula 2.0 28 06/27/17 04:00 62 06/27/17 04:00 96.3 66 22 145/76 100 Nasal Cannula 3.0 06/27/17 00:00 57 06/27/17 00:00 96.0 59 24 129/67 100 Nasal Cannula 3.0 06/26/17 21:00 52 146/69 06/26/17 20:00 48 06/26/17 20:00 96.4 52 26 146/69 100 Nasal Cannula 3.0 06/26/17 19:30 Nasal Cannula 2.0 28 06/26/17 19:30 95 Nasal Cannula 2.0 28 06/26/17 17:17 81 134/76 06/26/17 17:16 134/76 06/26/17 16:00 54 06/26/17 16:00 98.1 67 17 149/79 96 Nasal Cannula 3.0 Intake and Output 06/26/17 06/27/17 19:00 07:00 Intake Total 480 ml Output Total 400 ml 200 ml Balance -400 ml 280 ml Intake Oral 480 ml Output Urine Total 400 ml 200 ml Laboratory Tests Test 06/27/17 06:20 White Blood Count 4.1 K/UL (4.8-10.8) L Red Blood Count 3.44 M/UL (4.20-5.40) L Hemoglobin 11.3 G/DL (12.0-16.0) L Hematocrit 35.4 % (37.0-47.0) L Mean Corpuscular Volume 103 FL (80-99) H Mean Corpuscular Hemoglobin 32.9 PG (27.0-31.0) H Mean Corpuscular Hemoglobin Concent 32.0 G/DL (32.0-36.0) Red Cell Distribution Width 13.1 % (11.6-14.8) Platelet Count 63 K/UL (150-450) L Mean Platelet Volume 8.6 FL (6.5-10.1) Neutrophils (%) (Auto) % (45.0-75.0) Lymphocytes (%) (Auto) % (20.0-45.0) Monocytes (%) (Auto) % (1.0-10.0) Eosinophils (%) (Auto) % (0.0-3.0) Basophils (%) (Auto) % (0.0-2.0) Differential Total Cells Counted 100 Neutrophils % (Manual) 74 % (45-75) Lymphocytes % (Manual) 12 % (20-45) L Monocytes % (Manual) 11 % (1-10) H Eosinophils % (Manual) 3 % (0-3) Basophils % (Manual) 0 % (0-2) Band Neutrophils 0 % (0-8) Platelet Estimate Decreased L Platelet Morphology Normal Hypochromasia 1+ Anisocytosis 1+ Macrocytosis 1+ Sodium Level 145 MMOL/L (136-145) Potassium Level 5.1 MMOL/L (3.5-5.1) Chloride Level 109 MMOL/L (98-107) H Carbon Dioxide Level 33 MMOL/L (21-32) H Anion Gap 3 mmol/L (5-15) L Blood Urea Nitrogen 53 mg/dL (7-18) H Creatinine 1.8 MG/DL (0.55-1.30) H Estimat Glomerular Filtration Rate 28.5 mL/min (>60) Glucose Level 196 MG/DL (74-106) H Calcium Level 8.0 MG/DL (8.5-10.1) L Phosphorus Level 3.3 MG/DL (2.5-4.9) Magnesium Level 1.7 MG/DL (1.8-2.4) L Total Bilirubin 0.5 MG/DL (0.2-1.0) Aspartate Amino Transf (AST/SGOT) 31 U/L (15-37) Alanine Aminotransferase (ALT/SGPT) 12 U/L (12-78) Alkaline Phosphatase 48 U/L (46-116) C-Reactive Protein, Quantitative 2.6 mg/dL (0.00-0.90) H Pro-B-Type Natriuretic Peptide > 04245 pg/mL (0-125) H Total Protein 6.9 G/DL (6.4-8.2) Albumin 2.0 G/DL (3.4-5.0) L Globulin 4.9 g/dL Albumin/Globulin Ratio 0.4 (1.0-2.7) L Objective HEAD AND NECK: Showed no JVD. LUNGS: Decreased breath sounds. CARDIOVASCULAR: Regular S1 and s2 with No G/M ABDOMEN: Morbidly obese. EXTREMITIES: 1 plus pitting edema. LE BENSON Jun 27, 2017 12:35
[2017-06-27] MEDS ORDERED: 1/2 NS 1000ml IV ONE (14:37)
[2017-06-27] MEDS ORDERED: Tubing IV Secondary IV ONE (14:37)
--- NOTE | 2017-06-27 15:09 | Nephrology Progress Note ---
Assessment/Plan Problem List: (1) Acute on chronic renal failure (2) Respiratory failure (3) Pneumonia (4) UTI (urinary tract infection) Assessment Na 153 today Renal failure- Has a chronic component with ? superimposed acute- in December 2014 the Cr was 2.2 now 1.6 Acute respiratory failure, ON BIPAP Morbid obesity Diabetic Nephropathy COPD Depression Dementia HypoAlbuminemia ? Nephrotic Syndrom Plan Plan: no labs today on Cardiazem PO DNR DNI Slow hydrate with D5w pul support 24 h urine CrCl and protein non nephrotic Urine studies keep BP and BS incheck adjust BP meds per consultants Subjective ROS Limited/Unobtainable: No Objective Objective Last 24 Hour Vital Signs Date Time Temp Pulse Resp B/P (MAP) Pulse Ox O2 Delivery O2 Flow Rate FiO2 06/27/17 13:09 72 140/69 06/27/17 12:00 96.1 56 22 140/69 94 Nasal Cannula 3.0 06/27/17 09:40 96 135/64 06/27/17 09:40 135/64 06/27/17 09:00 96 135/64 06/27/17 08:00 96.3 69 22 135/64 96 Nasal Cannula 3.0 06/27/17 08:00 65 06/27/17 07:21 Nasal Cannula 2.0 28 06/27/17 07:21 99 Nasal Cannula 2.0 28 06/27/17 04:00 62 06/27/17 04:00 96.3 66 22 145/76 100 Nasal Cannula 3.0 06/27/17 00:00 57 06/27/17 00:00 96.0 59 24 129/67 100 Nasal Cannula 3.0 06/26/17 21:00 52 146/69 06/26/17 20:00 48 06/26/17 20:00 96.4 52 26 146/69 100 Nasal Cannula 3.0 06/26/17 19:30 Nasal Cannula 2.0 28 06/26/17 19:30 95 Nasal Cannula 2.0 28 06/26/17 17:17 81 134/76 06/26/17 17:16 134/76 06/26/17 16:00 54 06/26/17 16:00 98.1 67 17 149/79 96 Nasal Cannula 3.0 Intake and Output 06/26/17 06/27/17 19:00 07:00 Intake Total 480 ml Output Total 400 ml 200 ml Balance -400 ml 280 ml Intake Oral 480 ml Output Urine Total 400 ml 200 ml Laboratory Tests 06/27/17 06:20: White Blood Count 4.1L, Red Blood Count 3.44L, Hemoglobin 11.3L, Hematocrit 35.4L, Mean Corpuscular Volume 103H, Mean Corpuscular Hemoglobin 32.9H, Mean Corpuscular Hemoglobin Concent 32.0, Red Cell Distribution Width 13.1, Platelet Count 63L, Mean Platelet Volume 8.6, Neutrophils (%) (Auto) , Lymphocytes (%) ( Auto) , Monocytes (%) (Auto) , Eosinophils (%) (Auto) , Basophils (%) (Auto) , Differential Total Cells Counted 100, Neutrophils % (Manual) 74, Lymphocytes % ( Manual) 12L, Monocytes % (Manual) 11H, Eosinophils % (Manual) 3, Basophils % ( Manual) 0, Band Neutrophils 0, Platelet Estimate DecreasedL, Platelet Morphology Normal, Hypochromasia 1+, Anisocytosis 1+, Macrocytosis 1+, Sodium Level 145, Potassium Level 5.1, Chloride Level 109H, Carbon Dioxide Level 33H, Anion Gap 3L, Blood Urea Nitrogen 53H, Creatinine 1.8H, Estimat Glomerular Filtration Rate 28.5, Glucose Level 196H, Calcium Level 8.0L, Phosphorus Level 3.3, Magnesium Level 1.7L, Total Bilirubin 0.5, Aspartate Amino Transf (AST/SGOT ) 31, Alanine Aminotransferase (ALT/SGPT) 12, Alkaline Phosphatase 48, C- Reactive Protein, Quantitative 2.6H, Pro-B-Type Natriuretic Peptide > 94797F, Total Protein 6.9, Albumin 2.0L, Globulin 4.9, Albumin/Globulin Ratio 0.4L Height (Feet): 5 Height (Inches): 6.00 Weight (Pounds): 337 General Appearance: no apparent distress, lethargic Objective no change TALIA ROGERS Jun 27, 2017 15:09
--- NOTE | 2017-06-27 17:05 | General Progress Note ---
Assessment/Plan Assessment/Plan Assessment/Plan Problems: (1) Abdominal pain ICD Codes: R10.9 - Unspecified abdominal pain SNOMED: 66797698 (2) Cirrhosis ICD Codes: K74.60 - Unspecified cirrhosis of liver SNOMED: 63813958 (3) Portal hypertension ICD Codes: K76.6 - Portal hypertension SNOMED: 20374807 (4) Constipation ICD Codes: K59.00 - Constipation, unspecified SNOMED: 93596593 (5) Vomiting ICD Codes: R11.10 - Vomiting, unspecified SNOMED: 276604847 Assessment/Plan CT AP reviewed >> Evidence of chronic liver disease/cirrhosis with stigmata of portal hypertension including trace ascites and splenomegaly, see full report. hepatitis C positive pancytopenia most likely due to liver disease elevated troponin levels patient is on plavix defer any GI procedures, conservative management and supportive care >> will require cardiac clearance prior any proceduers monitor H&H, prn transfusions ppi daily manage portal HTN >> consider non-selective beta moon >> propranolol 10mg BID and titrate to goal SBP 100-120, hold for SBP < 100 or HR < 60. fu labs per consultants Subjective Allergies: Coded Allergies: CODEINE (Unverified Allergy, Unknown, 12/31/14) FLURAZEPAM (Unverified Allergy, Unknown, 12/31/14) PENICILLINS (Unverified Allergy, Unknown, 12/31/14) Subjective calm, no complaints no vomiting tolerating PO Objective Last 24 Hour Vital Signs Date Time Temp Pulse Resp B/P (MAP) Pulse Ox O2 Delivery O2 Flow Rate FiO2 06/27/17 16:00 96.5 69 22 145/50 94 Nasal Cannula 3.0 06/27/17 13:09 72 140/69 06/27/17 12:00 65 06/27/17 12:00 96.1 56 22 140/69 94 Nasal Cannula 3.0 06/27/17 09:40 96 135/64 06/27/17 09:40 135/64 06/27/17 09:00 96 135/64 06/27/17 08:00 96.3 69 22 135/64 96 Nasal Cannula 3.0 06/27/17 08:00 65 06/27/17 07:21 Nasal Cannula 2.0 28 06/27/17 07:21 99 Nasal Cannula 2.0 28 06/27/17 04:00 62 06/27/17 04:00 96.3 66 22 145/76 100 Nasal Cannula 3.0 06/27/17 00:00 57 06/27/17 00:00 96.0 59 24 129/67 100 Nasal Cannula 3.0 06/26/17 21:00 52 146/69 06/26/17 20:00 48 06/26/17 20:00 96.4 52 26 146/69 100 Nasal Cannula 3.0 06/26/17 19:30 Nasal Cannula 2.0 28 06/26/17 19:30 95 Nasal Cannula 2.0 28 06/26/17 17:17 81 134/76 06/26/17 17:16 134/76 Intake and Output 06/26/17 06/27/17 19:00 07:00 Intake Total 480 ml Output Total 400 ml 200 ml Balance -400 ml 280 ml Intake Oral 480 ml Output Urine Total 400 ml 200 ml Laboratory Tests 06/27/17 06:20: White Blood Count 4.1L, Red Blood Count 3.44L, Hemoglobin 11.3L, Hematocrit 35.4L, Mean Corpuscular Volume 103H, Mean Corpuscular Hemoglobin 32.9H, Mean Corpuscular Hemoglobin Concent 32.0, Red Cell Distribution Width 13.1, Platelet Count 63L, Mean Platelet Volume 8.6, Neutrophils (%) (Auto) , Lymphocytes (%) ( Auto) , Monocytes (%) (Auto) , Eosinophils (%) (Auto) , Basophils (%) (Auto) , Differential Total Cells Counted 100, Neutrophils % (Manual) 74, Lymphocytes % ( Manual) 12L, Monocytes % (Manual) 11H, Eosinophils % (Manual) 3, Basophils % ( Manual) 0, Band Neutrophils 0, Platelet Estimate DecreasedL, Platelet Morphology Normal, Hypochromasia 1+, Anisocytosis 1+, Macrocytosis 1+, Sodium Level 145, Potassium Level 5.1, Chloride Level 109H, Carbon Dioxide Level 33H, Anion Gap 3L, Blood Urea Nitrogen 53H, Creatinine 1.8H, Estimat Glomerular Filtration Rate 28.5, Glucose Level 196H, Calcium Level 8.0L, Phosphorus Level 3.3, Magnesium Level 1.7L, Total Bilirubin 0.5, Aspartate Amino Transf (AST/SGOT ) 31, Alanine Aminotransferase (ALT/SGPT) 12, Alkaline Phosphatase 48, C- Reactive Protein, Quantitative 2.6H, Pro-B-Type Natriuretic Peptide > 87096F, Total Protein 6.9, Albumin 2.0L, Globulin 4.9, Albumin/Globulin Ratio 0.4L Height (Feet): 5 Height (Inches): 6.00 Weight (Pounds): 337 Objective Obese WW NCAT supple CTA RRR soft ND (+) diffuse TTP (+) berrios non edema ILENE VELEZ Jun 27, 2017 17:05
--- NOTE | 2017-06-27 19:15 | General Progress Note ---
Assessment/Plan Assessment/Plan ASSESSMENT AND RECS: 1. Pancytopenia, likely due to liver disease/cirrhosis. Due to hepatitis C, chronic condition --> continue to monitor, ANC goal is above 1000 --> CT AP: Evidence of chronic liver disease/cirrhosis with stigmata of portal hypertension including trace ascites and splenomegaly --> plt goal above 20K, do not transfuse 2. Anemia secondary to chronic kidney disease. --> Anemia w/u reviewed 3. Elevated troponin, non-ST elevation myocardial infarction. Cardiology service following. --> contraindicated for anticoag given low platelets 4. Chronic obstructive pulmonary disease exacerbation versus pneumonia. 5. She was on BiPAP currently and is DNR/DNI. On antibiotics as per Pulmonary team. refusing care 6. Chronic kidney disease Subjective Allergies: Coded Allergies: CODEINE (Unverified Allergy, Unknown, 12/31/14) FLURAZEPAM (Unverified Allergy, Unknown, 12/31/14) PENICILLINS (Unverified Allergy, Unknown, 12/31/14) All Systems: reviewed and negative except above Subjective unchanged Objective Last 24 Hour Vital Signs Date Time Temp Pulse Resp B/P (MAP) Pulse Ox O2 Delivery O2 Flow Rate FiO2 06/27/17 19:05 97.3 90 18 143/85 90 Room Air 06/27/17 17:08 69 145/50 06/27/17 17:07 145/50 06/27/17 16:00 96.5 69 22 145/50 94 Nasal Cannula 3.0 06/27/17 16:00 74 06/27/17 13:09 72 140/69 06/27/17 12:00 65 06/27/17 12:00 96.1 56 22 140/69 94 Nasal Cannula 3.0 06/27/17 09:40 96 135/64 06/27/17 09:40 135/64 06/27/17 09:00 96 135/64 06/27/17 08:00 96.3 69 22 135/64 96 Nasal Cannula 3.0 06/27/17 08:00 65 06/27/17 07:21 Nasal Cannula 2.0 28 06/27/17 07:21 99 Nasal Cannula 2.0 28 06/27/17 04:00 62 06/27/17 04:00 96.3 66 22 145/76 100 Nasal Cannula 3.0 06/27/17 00:00 57 06/27/17 00:00 96.0 59 24 129/67 100 Nasal Cannula 3.0 06/26/17 21:00 52 146/69 06/26/17 20:00 48 06/26/17 20:00 96.4 52 26 146/69 100 Nasal Cannula 3.0 06/26/17 19:30 Nasal Cannula 2.0 28 06/26/17 19:30 95 Nasal Cannula 2.0 28 Intake and Output 06/26/17 06/27/17 19:00 07:00 Intake Total 480 ml Output Total 400 ml 200 ml Balance -400 ml 280 ml Intake Oral 480 ml Output Urine Total 400 ml 200 ml Laboratory Tests 06/27/17 06:20: White Blood Count 4.1L, Red Blood Count 3.44L, Hemoglobin 11.3L, Hematocrit 35.4L, Mean Corpuscular Volume 103H, Mean Corpuscular Hemoglobin 32.9H, Mean Corpuscular Hemoglobin Concent 32.0, Red Cell Distribution Width 13.1, Platelet Count 63L, Mean Platelet Volume 8.6, Neutrophils (%) (Auto) , Lymphocytes (%) ( Auto) , Monocytes (%) (Auto) , Eosinophils (%) (Auto) , Basophils (%) (Auto) , Differential Total Cells Counted 100, Neutrophils % (Manual) 74, Lymphocytes % ( Manual) 12L, Monocytes % (Manual) 11H, Eosinophils % (Manual) 3, Basophils % ( Manual) 0, Band Neutrophils 0, Platelet Estimate DecreasedL, Platelet Morphology Normal, Hypochromasia 1+, Anisocytosis 1+, Macrocytosis 1+, Sodium Level 145, Potassium Level 5.1, Chloride Level 109H, Carbon Dioxide Level 33H, Anion Gap 3L, Blood Urea Nitrogen 53H, Creatinine 1.8H, Estimat Glomerular Filtration Rate 28.5, Glucose Level 196H, Calcium Level 8.0L, Phosphorus Level 3.3, Magnesium Level 1.7L, Total Bilirubin 0.5, Aspartate Amino Transf (AST/SGOT ) 31, Alanine Aminotransferase (ALT/SGPT) 12, Alkaline Phosphatase 48, C- Reactive Protein, Quantitative 2.6H, Pro-B-Type Natriuretic Peptide > 95050W, Total Protein 6.9, Albumin 2.0L, Globulin 4.9, Albumin/Globulin Ratio 0.4L Height (Feet): 5 Height (Inches): 6.00 Weight (Pounds): 337 General Appearance: no apparent distress EENT: normal ENT inspection Neck: normal alignment Cardiovascular: normal rate Respiratory/Chest: lungs clear Pelvis: normal rectal exam Extremities: non-tender Edema: no edema noted Leg (L), no edema noted Leg (R) Edema: mild edema Neurologic: alert Skin: warm/dry Phoenix Muñoz Jun 27, 2017 19:15
[2017-06-27] MEDS ORDERED: Dyna-Hex 2% Top Sol 2oz TOPIC SCH (20:00)
[2017-06-27] MEDS: Atorvastatin 20mg tab ORAL SCH (20:56)
[2017-06-28 03:29] VITALS: BP 155/82
[2017-06-28] MEDS: NovoLOG Insulin Flexpen SUBQ SCH ×4 (06:54→20:47)
[2017-06-28 08:00] VITALS: BP 139/57
--- NOTE | 2017-06-28 08:44 | Pulmonology Progress Note ---
Assessment/Plan Assessment/Plan IMPRESSION: 1. Acute on chronic respiratory failure, 2. Profound hypercapnia. 3. Pleural effusion. 4. Possible pulmonary edema. 5. Renal failure. PLAN BIPAP refused no intervention at present suction as needed DNAR does not want intubation saturations adequate monitor and recommend further impression, plan, and exam edited and reviewed in detail care discussed with RN Subjective ROS Limited/Unobtainable: Yes Allergies: Coded Allergies: CODEINE (Unverified Allergy, Unknown, 12/31/14) FLURAZEPAM (Unverified Allergy, Unknown, 12/31/14) PENICILLINS (Unverified Allergy, Unknown, 12/31/14) Subjective care noted on oxygen Objective Last 24 Hour Vital Signs Date Time Temp Pulse Resp B/P (MAP) Pulse Ox O2 Delivery O2 Flow Rate FiO2 06/28/17 08:00 96.6 20 139/57 100 Nasal Cannula 3.0 06/28/17 07:53 Nasal Cannula 3.0 32 06/28/17 07:52 98 Nasal Cannula 3.0 32 06/28/17 04:00 81 06/28/17 03:29 97.9 84 20 155/82 100 Room Air 06/28/17 00:00 74 06/27/17 23:09 97.7 83 20 156/79 85 Nasal Cannula 06/27/17 21:35 99 Nasal Cannula 3.0 32 06/27/17 21:35 Nasal Cannula 3.0 32 06/27/17 20:56 90 143/85 06/27/17 20:00 83 06/27/17 19:05 97.3 90 18 143/85 90 Room Air 06/27/17 17:08 69 145/50 06/27/17 17:07 145/50 06/27/17 16:00 96.5 69 22 145/50 94 Nasal Cannula 3.0 06/27/17 16:00 74 06/27/17 13:09 72 140/69 06/27/17 12:00 65 06/27/17 12:00 96.1 56 22 140/69 94 Nasal Cannula 3.0 06/27/17 09:40 96 135/64 06/27/17 09:40 135/64 06/27/17 09:00 96 135/64 Intake and Output 06/27/17 06/28/17 19:00 07:00 Intake Total 360 ml Output Total 300 ml 200 ml Balance 60 ml -200 ml Intake Oral 360 ml Output Urine Total 300 ml 200 ml # Bowel Movements 1 Objective GENERAL: The patient is an ill-appearing female. remains altered HEENT: Fairly negative. NECK: Supple. LUNGS: With coarse breath sounds. Reduced overall. CARDIAC: S1 and S2. Regular rate and rhythm. ABDOMEN: Soft and nontender. EXTREMITIES: Without cyanosis. Current Medications Medications (Trade) Dose Ordered Sig/Brooks Route PRN Reason Start Time Stop Time Status Last Admin Dose Admin Al Hydroxide/Mg Hydroxide (Mylanta) 30 ml Q4HR PRN ORAL heartburn 06/25/17 01:00 07/21/17 13:44 Atorvastatin Calcium (Lipitor) 40 mg BEDTIME ORAL 06/25/17 21:00 07/25/17 20:59 06/27/17 20:56 Bupropion HCl (Wellbutrin XL) 450 mg DAILY ORAL 06/25/17 09:00 07/22/17 08:59 06/27/17 09:37 Chlorhexidine Gluconate (Sally-Hex 2%) 1 applic DAILY@1999 TOPIC 06/27/17 20:00 07/27/17 19:59 Clopidogrel Bisulfate (Plavix) 75 mg DAILY ORAL 06/25/17 09:00 07/22/17 08:59 06/27/17 09:37 Dextrose (Dextrose 50%) STAT PRN IV Hypoglycemia 06/25/17 14:15 07/21/17 14:14 Diltiazem HCl (Cardizem) 60 mg TID ORAL 06/25/17 09:00 07/24/17 12:59 06/27/17 17:08 Docusate Sodium (Colace) 250 mg TWICE A DAY ORAL 06/25/17 09:00 07/21/17 17:59 06/27/17 17:06 Doxycycline Monohydrate (Vibramycin) 100 mg EVERY 12 HOURS ORAL 06/25/17 09:00 07/01/17 13:29 06/27/17 20:57 Famotidine (Pepcid) 20 mg DAILY ORAL 06/25/17 09:00 07/25/17 08:59 06/27/17 09:39 Gabapentin (Neurontin) 300 mg Q12HR ORAL 06/25/17 09:00 07/21/17 20:59 06/27/17 20:56 Insulin Aspart (NovoLOG) BEFORE MEALS AND HS SUBQ 06/25/17 06:30 07/21/17 16:29 06/28/17 06:54 Isosorbide Mononitrate (Imdur) 30 mg BID ORAL 06/25/17 09:00 07/22/17 08:59 06/27/17 17:07 Levofloxacin (Levaquin) 750 mg QOD ORAL 06/26/17 21:00 07/03/17 20:59 06/26/17 21:00 Methocarbamol (Robaxin) 500 mg Q12HR PRN ORAL MUSCLE SPASM LOWER BACK 06/25/17 09:00 07/21/17 13:44 Metoprolol Tartrate (Lopressor) 50 mg Q12HR ORAL 06/25/17 09:00 07/21/17 20:59 06/27/17 20:56 Morphine Sulfate (Morphine Sulfate) 1 mg Q6H PRN IVP Severe Pain (Pain Scale 7-10) 06/25/17 03:30 06/29/17 15:29 06/26/17 01:05 Nitroglycerin (Ntg) 0.4 mg Q5M PRN SL Prn Chest Pain 06/25/17 00:00 07/21/17 13:44 Nystatin (Nystop Powder) 1 applic THREE TIMES A DAY TOPIC 06/25/17 09:00 07/21/17 19:59 06/27/17 17:08 Ondansetron HCl (Zofran ODT) 8 mg BID PRN ORAL Nausea & Vomiting 06/25/17 09:00 07/21/17 13:44 Rivastigmine Tartrate (Exelon) 6 mg TWICE A DAY ORAL 06/25/17 09:00 07/21/17 17:59 06/27/17 17:07 Sennosides (Senokot) 1 tab DAILY ORAL 06/25/17 09:00 07/22/17 08:59 06/27/17 09:37 GLENN MILLARD Jun 28, 2017 08:43
[2017-06-28] MEDS: Docusate 250mg cap ORAL SCH ×2 (09:00→18:03)
[2017-06-28] MEDS: Imdur 30mg tab ORAL SCH ×2 (09:00→18:03)
[2017-06-28] MEDS: BuPROPion XL 150mg tab ORAL SCH (09:00)
[2017-06-28] MEDS: Nystatin Powder 100,000 units/gm 15gm TOPIC SCH ×3 (09:00→18:03)
[2017-06-28] MEDS: Metoprolol Tartrate 50mg tab ORAL SCH ×2 (09:00→20:45)
[2017-06-28] MEDS: Sennosides 8.6mg ORAL SCH (09:13)
[2017-06-28] MEDS: dilTIAZem HCl 60mg tab ORAL SCH ×3 (09:14→21:44)
[2017-06-28] MEDS: Exelon 1.5mg cap ORAL SCH ×2 (09:20→18:03)
--- NOTE | 2017-06-28 10:53 | Infectious Diseases Prog Note ---
Assessment/Plan Assessment/Plan antibiotics : levoquin, doxycycline A 1. pneumonia 2. streptococcus UTI 3. cirrhosis 4. pancreatitis 5. rectal VRE colonization P 1. continue levoquin 2. continue doxycycline 2 more days 3. will follow up cultures Subjective ROS Limited/Unobtainable: Yes Allergies: Coded Allergies: CODEINE (Unverified Allergy, Unknown, 12/31/14) FLURAZEPAM (Unverified Allergy, Unknown, 12/31/14) PENICILLINS (Unverified Allergy, Unknown, 12/31/14) Objective Vital Signs Last 24 Hour Vital Signs Date Time Temp Pulse Resp B/P (MAP) Pulse Ox O2 Delivery O2 Flow Rate FiO2 06/28/17 09:14 100 159/57 06/28/17 09:00 74 159/57 06/28/17 09:00 159/57 06/28/17 08:00 96.6 20 139/57 100 Nasal Cannula 3.0 06/28/17 07:53 Nasal Cannula 3.0 32 06/28/17 07:52 98 Nasal Cannula 3.0 32 06/28/17 04:00 81 06/28/17 03:29 97.9 84 20 155/82 100 Room Air 06/28/17 00:00 74 06/27/17 23:09 97.7 83 20 156/79 85 Nasal Cannula 06/27/17 21:35 99 Nasal Cannula 3.0 32 06/27/17 21:35 Nasal Cannula 3.0 32 06/27/17 20:56 90 143/85 06/27/17 20:00 83 06/27/17 19:05 97.3 90 18 143/85 90 Room Air 06/27/17 17:08 69 145/50 06/27/17 17:07 145/50 06/27/17 16:00 96.5 69 22 145/50 94 Nasal Cannula 3.0 06/27/17 16:00 74 06/27/17 13:09 72 140/69 06/27/17 12:00 65 06/27/17 12:00 96.1 56 22 140/69 94 Nasal Cannula 3.0 Height (Feet): 5 Height (Inches): 6.00 Weight (Pounds): 328 Respiratory/Chest: lungs clear Cardiovascular: normal rate, regular rhythm, no gallop/murmur Abdomen: soft, non tender Extremities: no edema SASHA,SHAKUNTALA Jun 28, 2017 10:53
--- NOTE | 2017-06-28 10:54 | Wound Care Consultation ---
Wound Assessment Wound Assessment : Wound Number: 1 Wound Present on Admission: No New Wound: Yes Status Change of Wound: No Wound Location Body Site Modif: left Wound Location Body Site: abdominal fold Wound Type: other - erosion Cornel Test: Does not Cornel Wound Thickness: Partial Thickness Wound Length: 2.0 Wound Width: 15.0 Percent of Wound [place]/Red: 100 - scattered erosion along abdomen fold Wound Drainage Description: Serosanguineous Wound Drainage Amount: Scant Wound Drainage Odor: None/Absent Tissue Surrounding Wound: Macerated Wound General Appearance: Reddened Wound Comment Reassessment #1 Right breast fold erosion.- noted good progress decrease in size, game preserve manager in color, no further deterioration present , current treatment effective. resolving #2 Mid Sacral suspected deep tissue injury.- site remains as SDTI , intact, noted red color remains present to site. #3 Mid back full thickness scar tissue.-intact #4 Left 5th toe stage 1 pressure ulcer.- noted game preserve manager in color , no further deterioration , skin is intact. #5 Left dorsal aspect of foot stage 1 pressure ulcer- resolved #6 Left heel stage 1 pressure ulcer.- skin remains intact, no further deterioration resolving. #7 Left abdomen fold scattered erosion- recommendation - Cleanse with soap and water, pat dry , lightly apply TRIAD, apply 4x4 gauze secure with tape, daily and prn if soiled/dislodged, keep clean and dry. Recommendation. -Local wound care as ordered. -Turn and reposition. -Keep clean and dry. -Optimize nutrition. -Low air loss overlay. -Heel protectors. -Offload affected sites and heels. -Asses and notify MD for any further change of condition to skin. RUPERTO COWART Jun 28, 2017 10:54
[2017-06-28 11:20] VITALS: BP 135/57
--- NOTE | 2017-06-28 11:35 | Cardiac Electrophysiology PN ---
Assessment/Plan Assessment/Plan 1. Paroxysmal Atrial fib with RVR. In SR on Cardizem 60 tid and Toprol 50 bid. Off anticoagulation for thrombocytopenia. DC tele 2. Gim-VN-cryttolzi myocardial infarction and troponin of 0.78. The patient does not want any invasive procedure . Continue aspirin, Plavix, Toprol, Imdur and Lipitor 3. Morbid obesity. 4. Hypertension, continue Cardizem 60 tid and Toprol 50 bid. 5. Pancytopenia. F/U by Dr. Muñoz including platelet count of 50,000. 6. Hypercarbic respiratory failure. The patient is refusing BiPAP. 7. Do Not Resuscitate/DNI. Hopsice consult in progress 8. DC Tele DW RN Subjective Subjective Remained in SR on tele.No chest pain or SOB. Awaiting transfer to [facility] Objective Last 24 Hour Vital Signs Date Time Temp Pulse Resp B/P (MAP) Pulse Ox O2 Delivery O2 Flow Rate FiO2 06/28/17 09:14 100 159/57 06/28/17 09:00 74 159/57 06/28/17 09:00 159/57 06/28/17 08:00 96.6 20 139/57 100 Nasal Cannula 3.0 06/28/17 08:00 75 06/28/17 07:53 Nasal Cannula 3.0 32 06/28/17 07:52 98 Nasal Cannula 3.0 32 06/28/17 04:00 81 06/28/17 03:29 97.9 84 20 155/82 100 Room Air 06/28/17 00:00 74 06/27/17 23:09 97.7 83 20 156/79 85 Nasal Cannula 06/27/17 21:35 99 Nasal Cannula 3.0 32 06/27/17 21:35 Nasal Cannula 3.0 32 06/27/17 20:56 90 143/85 06/27/17 20:00 83 06/27/17 19:05 97.3 90 18 143/85 90 Room Air 06/27/17 17:08 69 145/50 06/27/17 17:07 145/50 06/27/17 16:00 96.5 69 22 145/50 94 Nasal Cannula 3.0 06/27/17 16:00 74 06/27/17 13:09 72 140/69 06/27/17 12:00 65 06/27/17 12:00 96.1 56 22 140/69 94 Nasal Cannula 3.0 Intake and Output 06/27/17 06/28/17 19:00 07:00 Intake Total 360 ml Output Total 300 ml 200 ml Balance 60 ml -200 ml Intake Oral 360 ml Output Urine Total 300 ml 200 ml # Bowel Movements 1 Objective HEAD AND NECK: Showed no JVD. LUNGS: Decreased breath sounds. CARDIOVASCULAR: Regular S1 and s2 with No G/M ABDOMEN: Morbidly obese. EXTREMITIES: 1 plus pitting edema. LE BENSON Jun 28, 2017 11:35
[2017-06-28 12:00] VITALS: BP 113/50
--- NOTE | 2017-06-28 12:14 | GI Progress Note ---
Assessment/Plan Problems: (1) Abdominal pain ICD Codes: R10.9 - Unspecified abdominal pain SNOMED: 02942268 (2) Cirrhosis ICD Codes: K74.60 - Unspecified cirrhosis of liver SNOMED: 41147123 (3) Portal hypertension ICD Codes: K76.6 - Portal hypertension SNOMED: 66717202 (4) Constipation ICD Codes: K59.00 - Constipation, unspecified SNOMED: 63511500 (5) Vomiting ICD Codes: R11.10 - Vomiting, unspecified SNOMED: 457785358 Status: progressing Status Narrative Discussed with Dr. Fuentes. Assessment/Plan CT AP reviewed >> Evidence of chronic liver disease/cirrhosis with stigmata of portal hypertension including trace ascites and splenomegaly, see full report. hepatitis C positive pancytopenia most likely due to liver disease elevated troponin levels patient is on plavix defer any GI procedures, conservative management and supportive care >> will require cardiac clearance prior any proceduers monitor H&H, prn transfusions ppi daily manage portal HTN >> consider non-selective beta moon >> propranolol 10mg BID and titrate to goal SBP 100-120, hold for SBP < 100 or HR < 60. fu labs per consultants Subjective Subjective limited Objective Last 24 Hour Vital Signs Date Time Temp Pulse Resp B/P (MAP) Pulse Ox O2 Delivery O2 Flow Rate FiO2 06/28/17 09:14 100 159/57 06/28/17 09:00 74 159/57 06/28/17 09:00 159/57 06/28/17 08:00 96.6 20 139/57 100 Nasal Cannula 3.0 06/28/17 08:00 75 06/28/17 07:53 Nasal Cannula 3.0 32 06/28/17 07:52 98 Nasal Cannula 3.0 32 06/28/17 04:00 81 06/28/17 03:29 97.9 84 20 155/82 100 Room Air 06/28/17 00:00 74 06/27/17 23:09 97.7 83 20 156/79 85 Nasal Cannula 06/27/17 21:35 99 Nasal Cannula 3.0 32 06/27/17 21:35 Nasal Cannula 3.0 32 06/27/17 20:56 90 143/85 06/27/17 20:00 83 06/27/17 19:05 97.3 90 18 143/85 90 Room Air 06/27/17 17:08 69 145/50 06/27/17 17:07 145/50 06/27/17 16:00 96.5 69 22 145/50 94 Nasal Cannula 3.0 06/27/17 16:00 74 06/27/17 13:09 72 140/69 Intake and Output 06/27/17 06/28/17 19:00 07:00 Intake Total 360 ml Output Total 300 ml 200 ml Balance 60 ml -200 ml Intake Oral 360 ml Output Urine Total 300 ml 200 ml # Bowel Movements 1 Height (Feet): 5 Height (Inches): 6.00 Weight (Pounds): 328 General Appearance: WD/WN, no apparent distress, alert, morbidly obese Cardiovascular: normal rate Respiratory/Chest: normal breath sounds, no respiratory distress, other - 2LNC Abdominal Exam: normal bowel sounds, non tender, soft Kalie Argueta N.P. Jun 28, 2017 12:14
[2017-06-28] MEDS ORDERED: Nitroglycerin Subl 0.4mg tab SL PRN (12:30)
[2017-06-28] MEDS ORDERED: Methocarbamol 500mg tab ORAL PRN (12:30)
[2017-06-28] MEDS ORDERED: Morphine Sulfate 2mg/ml Inj IVP PRN (12:30)
--- NOTE | 2017-06-28 15:10 | Nephrology Progress Note ---
Assessment/Plan Problem List: (1) Acute on chronic renal failure (2) Respiratory failure (3) Pneumonia (4) UTI (urinary tract infection) Assessment Na WNL Renal failure- Has a chronic component with ? superimposed acute- in December 2014 the Cr was 2.2 now 1.8 Acute respiratory failure, ON BIPAP Morbid obesity Diabetic Nephropathy COPD Depression Dementia HypoAlbuminemia ? Nephrotic Syndrom Plan Plan: no labs today on Cardiazem PO DNR DNI Slow hydrate with D5w pul support 24 h urine CrCl and protein non nephrotic Urine studies keep BP and BS incheck adjust BP meds per consultants Subjective ROS Limited/Unobtainable: No Constitutional: Reports: malaise Objective Objective Last 24 Hour Vital Signs Date Time Temp Pulse Resp B/P (MAP) Pulse Ox O2 Delivery O2 Flow Rate FiO2 06/28/17 14:06 100 159/57 06/28/17 09:14 100 159/57 06/28/17 09:00 74 159/57 06/28/17 09:00 159/57 06/28/17 08:00 96.6 20 139/57 100 Nasal Cannula 3.0 06/28/17 08:00 75 06/28/17 07:53 Nasal Cannula 3.0 32 06/28/17 07:52 98 Nasal Cannula 3.0 32 06/28/17 04:00 81 06/28/17 03:29 97.9 84 20 155/82 100 Room Air 06/28/17 00:00 74 06/27/17 23:09 97.7 83 20 156/79 85 Nasal Cannula 06/27/17 21:35 99 Nasal Cannula 3.0 32 06/27/17 21:35 Nasal Cannula 3.0 32 06/27/17 20:56 90 143/85 06/27/17 20:00 83 06/27/17 19:05 97.3 90 18 143/85 90 Room Air 06/27/17 17:08 69 145/50 06/27/17 17:07 145/50 06/27/17 16:00 96.5 69 22 145/50 94 Nasal Cannula 3.0 06/27/17 16:00 74 Intake and Output 06/27/17 06/28/17 19:00 07:00 Intake Total 360 ml Output Total 300 ml 200 ml Balance 60 ml -200 ml Intake Oral 360 ml Output Urine Total 300 ml 200 ml # Bowel Movements 1 Height (Feet): 5 Height (Inches): 6.00 Weight (Pounds): 328 Objective no change TALIA ROGERS Jun 28, 2017 15:09
[2017-06-28 16:00] VITALS: BP 130/60
[2017-06-28] MEDS ORDERED: Ondansetron ODT 8mg tab ORAL PRN (18:00)
--- NOTE | 2017-06-28 19:42 | General Progress Note ---
Assessment/Plan Assessment/Plan ASSESSMENT AND RECS: 1. Pancytopenia, likely due to liver disease/cirrhosis. Due to hepatitis C, chronic condition --> continue to monitor, ANC goal is above 1000 --> CT AP: Evidence of chronic liver disease/cirrhosis with stigmata of portal hypertension including trace ascites and splenomegaly --> plt goal above 20K, do not transfuse 2. Anemia secondary to chronic kidney disease. --> Anemia w/u reviewed 3. Elevated troponin, non-ST elevation myocardial infarction. Cardiology service following. --> contraindicated for anticoag given low platelets 4. Chronic obstructive pulmonary disease exacerbation versus pneumonia. 5. She was on BiPAP currently and is DNR/DNI. On antibiotics as per Pulmonary team. refusing care 6. Chronic kidney disease Subjective Allergies: Coded Allergies: CODEINE (Unverified Allergy, Unknown, 12/31/14) FLURAZEPAM (Unverified Allergy, Unknown, 12/31/14) PENICILLINS (Unverified Allergy, Unknown, 12/31/14) Subjective unchanged Objective Last 24 Hour Vital Signs Date Time Temp Pulse Resp B/P (MAP) Pulse Ox O2 Delivery O2 Flow Rate FiO2 06/28/17 18:03 130/60 06/28/17 16:00 97.7 70 20 130/60 100 Nasal Cannula 3.0 06/28/17 14:06 100 159/57 06/28/17 12:00 97.0 75 20 113/50 95 Nasal Cannula 3.0 06/28/17 11:20 97.2 61 20 135/57 100 Nasal Cannula 3.0 06/28/17 09:14 100 159/57 06/28/17 09:00 74 159/57 06/28/17 09:00 159/57 06/28/17 08:00 96.6 20 139/57 100 Nasal Cannula 3.0 06/28/17 08:00 75 06/28/17 07:53 Nasal Cannula 3.0 32 06/28/17 07:52 98 Nasal Cannula 3.0 32 06/28/17 04:00 81 06/28/17 03:29 97.9 84 20 155/82 100 Room Air 06/28/17 00:00 74 06/27/17 23:09 97.7 83 20 156/79 85 Nasal Cannula 06/27/17 21:35 99 Nasal Cannula 3.0 32 06/27/17 21:35 Nasal Cannula 3.0 32 06/27/17 20:56 90 143/85 06/27/17 20:00 83 Intake and Output 06/27/17 06/28/17 19:00 07:00 Intake Total 360 ml Output Total 300 ml 200 ml Balance 60 ml -200 ml Intake Oral 360 ml Output Urine Total 300 ml 200 ml # Bowel Movements 1 Height (Feet): 5 Height (Inches): 6.00 Weight (Pounds): 328 [place] Muñoz Jun 28, 2017 19:42
[2017-06-28 20:00] VITALS: BP 129/54
[2017-06-28] MEDS: Dyna-Hex 2% Top Sol 2oz TOPIC SCH (20:00)
[2017-06-28] MEDS: Atorvastatin 20mg tab ORAL SCH (20:45)
[2017-06-29] VITALS (7 sets, daily range): BP systolic 120–192; BP diastolic 68–89
[2017-06-29] MEDS: dilTIAZem HCl 60mg tab ORAL SCH ×3 (06:11→22:26)
[2017-06-29] MEDS: NovoLOG Insulin Flexpen SUBQ SCH ×4 (06:26→22:27)
[2017-06-29 07:20] LABS: ANION GAP 1 mmol/L (5-15); BLOOD UREA NITROGEN 65 mg/dL (7-18); CALCIUM 8.2 MG/DL (8.5-10.1); CARBON DIOXIDE 35 MMOL/L (21-32); CHLORIDE 112 MMOL/L (98-107); PHOSPHORUS 2.1 MG/DL (2.5-4.9); POTASSIUM 5.2 MMOL/L (3.5-5.1); SODIUM 148 MMOL/L (136-145)
[2017-06-29 07:25] LABS: HEMATOCRIT 36.7 % (37.0-47.0); HEMOGLOBIN 11.8 G/DL (12.0-16.0); MEAN CORPUSCULAR VOLUME 102 FL (80-99); PLATELET COUNT 99 K/UL (150-450); RED BLOOD COUNT 3.59 M/UL (4.20-5.40); RED CELL DISTRIBUTION WIDTH 13.2 % (11.6-14.8); WHITE BLOOD COUNT 6.4 K/UL (4.8-10.8)
[2017-06-29] MEDS: Docusate 250mg cap ORAL SCH ×2 (09:07→16:59)
[2017-06-29] MEDS: Exelon 1.5mg cap ORAL SCH ×2 (09:07→16:59)
[2017-06-29] MEDS: Imdur 30mg tab ORAL SCH ×2 (09:07→16:58)
[2017-06-29] MEDS: Sennosides 8.6mg ORAL SCH (09:07)
[2017-06-29] MEDS: Metoprolol Tartrate 50mg tab ORAL SCH ×2 (09:08→22:26)
[2017-06-29] MEDS: Nystatin Powder 100,000 units/gm 15gm TOPIC SCH ×3 (09:08→16:59)
--- NOTE | 2017-06-29 11:01 | GI Progress Note ---
Assessment/Plan Problems: (1) Abdominal pain ICD Codes: R10.9 - Unspecified abdominal pain SNOMED: 25761045 (2) Cirrhosis ICD Codes: K74.60 - Unspecified cirrhosis of liver SNOMED: 43094900 (3) Portal hypertension ICD Codes: K76.6 - Portal hypertension SNOMED: 45954674 (4) Constipation ICD Codes: K59.00 - Constipation, unspecified SNOMED: 15479350 (5) Vomiting ICD Codes: R11.10 - Vomiting, unspecified SNOMED: 135086191 Status: unchanged Status Narrative Discussed with Dr. Fuentes. Assessment/Plan CT AP reviewed >> Evidence of chronic liver disease/cirrhosis with stigmata of portal hypertension including trace ascites and splenomegaly, see full report. hepatitis C positive pancytopenia most likely due to liver disease elevated troponin levels patient is on plavix defer any GI procedures, conservative management and supportive care >> will require cardiac clearance prior any proceduers monitor H&H, prn transfusions ppi daily manage portal HTN >> consider non-selective beta moon >> propranolol 10mg BID and titrate to goal SBP 100-120, hold for SBP < 100 or HR < 60. OT eval fu labs Subjective Subjective limited Objective Last 24 Hour Vital Signs Date Time Temp Pulse Resp B/P (MAP) Pulse Ox O2 Delivery O2 Flow Rate FiO2 06/29/17 09:08 76 192/89 06/29/17 09:07 192/89 06/29/17 08:53 98.4 76 21 192/89 100 06/29/17 07:45 97 Nasal Cannula 3.0 32 06/29/17 07:45 Nasal Cannula 3.0 32 06/29/17 06:11 86 161/86 06/29/17 04:00 97.7 86 20 161/86 98 06/29/17 00:00 97.5 95 21 120/68 95 06/28/17 21:44 81 154/83 06/28/17 21:00 98 Nasal Cannula 3.0 32 06/28/17 21:00 Nasal Cannula 3.0 32 06/28/17 20:45 87 129/64 06/28/17 20:00 97.7 81 21 129/54 96 06/28/17 18:03 130/60 06/28/17 16:00 97.7 70 20 130/60 100 Nasal Cannula 3.0 06/28/17 14:06 100 159/57 06/28/17 12:00 97.0 75 20 113/50 95 Nasal Cannula 3.0 06/28/17 11:20 97.2 61 20 135/57 100 Nasal Cannula 3.0 Intake and Output 06/28/17 06/29/17 19:00 07:00 Output Total 500 ml Balance -500 ml Output Urine Total 500 ml Laboratory Tests Test 06/29/17 05:00 White Blood Count 6.4 K/UL (4.8-10.8) Red Blood Count 3.59 M/UL (4.20-5.40) L Hemoglobin 11.8 G/DL (12.0-16.0) L Hematocrit 36.7 % (37.0-47.0) L Mean Corpuscular Volume 102 FL (80-99) H Mean Corpuscular Hemoglobin 32.8 PG (27.0-31.0) H Mean Corpuscular Hemoglobin Concent 32.1 G/DL (32.0-36.0) Red Cell Distribution Width 13.2 % (11.6-14.8) Platelet Count 99 K/UL (150-450) L Mean Platelet Volume 7.2 FL (6.5-10.1) Neutrophils (%) (Auto) % (45.0-75.0) Lymphocytes (%) (Auto) % (20.0-45.0) Monocytes (%) (Auto) % (1.0-10.0) Eosinophils (%) (Auto) % (0.0-3.0) Basophils (%) (Auto) % (0.0-2.0) Differential Total Cells Counted 100 Neutrophils % (Manual) 87 % (45-75) H Lymphocytes % (Manual) 9 % (20-45) L Monocytes % (Manual) 4 % (1-10) Eosinophils % (Manual) 0 % (0-3) Basophils % (Manual) 0 % (0-2) Band Neutrophils 0 % (0-8) Platelet Estimate Decreased L Platelet Morphology Normal Hypochromasia 1+ Macrocytosis 1+ Sodium Level 148 MMOL/L (136-145) H Potassium Level 5.2 MMOL/L (3.5-5.1) H Chloride Level 112 MMOL/L (98-107) H Carbon Dioxide Level 35 MMOL/L (21-32) H Anion Gap 1 mmol/L (5-15) L Blood Urea Nitrogen 65 mg/dL (7-18) H Creatinine 2.0 MG/DL (0.55-1.30) H Estimat Glomerular Filtration Rate 25.2 mL/min (>60) Glucose Level 196 MG/DL (74-106) H Calcium Level 8.2 MG/DL (8.5-10.1) L Phosphorus Level 2.1 MG/DL (2.5-4.9) L Magnesium Level 1.9 MG/DL (1.8-2.4) Height (Feet): 5 Height (Inches): 6.00 Weight (Pounds): 326 General Appearance: WD/WN, no apparent distress, alert, morbidly obese Cardiovascular: normal rate Respiratory/Chest: normal breath sounds, no respiratory distress Abdominal Exam: normal bowel sounds, non tender, soft Extremities: non-tender Kalie Argueta N.P. Jun 29, 2017 11:01
--- NOTE | 2017-06-29 11:40 | Infectious Diseases Prog Note ---
Assessment/Plan Assessment/Plan antibiotics : levoquin, doxycyline A 1. pneumonia 2. streptococcus UTI 3. cirrhosis 4. pancreatitis 5. rectal VRE colonization P 1. continue levoquin 2. continue doxycycline 1 more day 3. will follow up cultures Subjective ROS Limited/Unobtainable: Yes Allergies: Coded Allergies: CODEINE (Unverified Allergy, Unknown, 12/31/14) FLURAZEPAM (Unverified Allergy, Unknown, 12/31/14) PENICILLINS (Unverified Allergy, Unknown, 12/31/14) Objective Vital Signs Last 24 Hour Vital Signs Date Time Temp Pulse Resp B/P (MAP) Pulse Ox O2 Delivery O2 Flow Rate FiO2 06/29/17 11:36 98.2 80 21 139/84 100 06/29/17 09:08 76 192/89 06/29/17 09:07 192/89 06/29/17 08:53 98.4 76 21 192/89 100 06/29/17 07:45 97 Nasal Cannula 3.0 32 06/29/17 07:45 Nasal Cannula 3.0 32 06/29/17 06:11 86 161/86 06/29/17 04:00 97.7 86 20 161/86 98 06/29/17 00:00 97.5 95 21 120/68 95 06/28/17 21:44 81 154/83 06/28/17 21:00 98 Nasal Cannula 3.0 32 06/28/17 21:00 Nasal Cannula 3.0 32 06/28/17 20:45 87 129/64 06/28/17 20:00 97.7 81 21 129/54 96 06/28/17 18:03 130/60 06/28/17 16:00 97.7 70 20 130/60 100 Nasal Cannula 3.0 06/28/17 14:06 100 159/57 06/28/17 12:00 97.0 75 20 113/50 95 Nasal Cannula 3.0 Height (Feet): 5 Height (Inches): 6.00 Weight (Pounds): 326 Respiratory/Chest: lungs clear Cardiovascular: normal rate, regular rhythm, no gallop/murmur Abdomen: soft, non tender Extremities: no edema Laboratory Tests Test 06/29/17 05:00 White Blood Count 6.4 K/UL (4.8-10.8) Red Blood Count 3.59 M/UL (4.20-5.40) L Hemoglobin 11.8 G/DL (12.0-16.0) L Hematocrit 36.7 % (37.0-47.0) L Mean Corpuscular Volume 102 FL (80-99) H Mean Corpuscular Hemoglobin 32.8 PG (27.0-31.0) H Mean Corpuscular Hemoglobin Concent 32.1 G/DL (32.0-36.0) Red Cell Distribution Width 13.2 % (11.6-14.8) Platelet Count 99 K/UL (150-450) L Mean Platelet Volume 7.2 FL (6.5-10.1) Neutrophils (%) (Auto) % (45.0-75.0) Lymphocytes (%) (Auto) % (20.0-45.0) Monocytes (%) (Auto) % (1.0-10.0) Eosinophils (%) (Auto) % (0.0-3.0) Basophils (%) (Auto) % (0.0-2.0) Differential Total Cells Counted 100 Neutrophils % (Manual) 87 % (45-75) H Lymphocytes % (Manual) 9 % (20-45) L Monocytes % (Manual) 4 % (1-10) Eosinophils % (Manual) 0 % (0-3) Basophils % (Manual) 0 % (0-2) Band Neutrophils 0 % (0-8) Platelet Estimate Decreased L Platelet Morphology Normal Hypochromasia 1+ Macrocytosis 1+ Sodium Level 148 MMOL/L (136-145) H Potassium Level 5.2 MMOL/L (3.5-5.1) H Chloride Level 112 MMOL/L (98-107) H Carbon Dioxide Level 35 MMOL/L (21-32) H Anion Gap 1 mmol/L (5-15) L Blood Urea Nitrogen 65 mg/dL (7-18) H Creatinine 2.0 MG/DL (0.55-1.30) H Estimat Glomerular Filtration Rate 25.2 mL/min (>60) Glucose Level 196 MG/DL (74-106) H Calcium Level 8.2 MG/DL (8.5-10.1) L Phosphorus Level 2.1 MG/DL (2.5-4.9) L Magnesium Level 1.9 MG/DL (1.8-2.4) ALEXANDRA BAEZ Jun 29, 2017 11:40
[2017-06-29] MEDS: BuPROPion XL 150mg tab ORAL SCH (12:05)
[2017-06-29] MEDS ORDERED: LIPITOR80 MG ORAL ×2 (12:35→12:37)
[2017-06-29] MEDS ORDERED: WELLBUTRIN XL150 MG ORAL (12:39)
[2017-06-29] MEDS ORDERED: DILTIAZEM HCL60 MG PO (12:41)
[2017-06-29] MEDS ORDERED: PEPCID20 MG ORAL (12:43)
[2017-06-29] MEDS ORDERED: DOCUSATE SODIU100 M2 ORAL (12:43)
[2017-06-29] MEDS ORDERED: NOVOLOG100 UNIT/4 SQ (12:45)
[2017-06-29] MEDS ORDERED: ISOSORBIDE MONO20 MG PO (12:47)
[2017-06-29] MEDS ORDERED: ROBAXIN100 MG/1 M IJ (12:50)
[2017-06-29] MEDS ORDERED: METOPROLOL TART75 MG PO (12:52)
[2017-06-29] MEDS ORDERED: NYSTATIN15 G2 TP (12:59)
[2017-06-29] MEDS ORDERED: SENNOSIDES8.6 MG ORAL (13:01)
--- NOTE | 2017-06-29 15:11 | Nephrology Progress Note ---
Assessment/Plan Problem List: (1) Acute on chronic renal failure (2) Respiratory failure (3) Pneumonia (4) UTI (urinary tract infection) Assessment Na higher Cr 2 Renal failure- Has a chronic component with ? superimposed acute- in December 2014 the Cr was 2.2 now 1.8 Acute respiratory failure, ON BIPAP Morbid obesity Diabetic Nephropathy COPD Depression Dementia HypoAlbuminemia ? Nephrotic Syndrom Plan Plan: free PO H2O on Cardiazem PO DNR DNI Slow hydrate with D5w pul support 24 h urine CrCl and protein non nephrotic Urine studies keep BP and BS incheck adjust BP meds per consultants Subjective ROS Limited/Unobtainable: No Objective Objective Last 24 Hour Vital Signs Date Time Temp Pulse Resp B/P (MAP) Pulse Ox O2 Delivery O2 Flow Rate FiO2 06/29/17 11:36 98.2 80 21 139/84 100 06/29/17 09:08 76 192/89 06/29/17 09:07 192/89 06/29/17 08:53 98.4 76 21 192/89 100 06/29/17 07:45 97 Nasal Cannula 3.0 32 06/29/17 07:45 Nasal Cannula 3.0 32 06/29/17 06:11 86 161/86 06/29/17 04:00 97.7 86 20 161/86 98 06/29/17 00:00 97.5 95 21 120/68 95 06/28/17 21:44 81 154/83 06/28/17 21:00 98 Nasal Cannula 3.0 32 06/28/17 21:00 Nasal Cannula 3.0 32 06/28/17 20:45 87 129/64 06/28/17 20:00 97.7 81 21 129/54 96 06/28/17 18:03 130/60 06/28/17 16:00 97.7 70 20 130/60 100 Nasal Cannula 3.0 Intake and Output 06/28/17 06/29/17 19:00 07:00 Output Total 500 ml Balance -500 ml Output Urine Total 500 ml Laboratory Tests 06/29/17 05:00: White Blood Count 6.4, Red Blood Count 3.59L, Hemoglobin 11.8L, Hematocrit 36.7L , Mean Corpuscular Volume 102H, Mean Corpuscular Hemoglobin 32.8H, Mean Corpuscular Hemoglobin Concent 32.1, Red Cell Distribution Width 13.2, Platelet Count 99L, Mean Platelet Volume 7.2, Neutrophils (%) (Auto) , Lymphocytes (%) ( Auto) , Monocytes (%) (Auto) , Eosinophils (%) (Auto) , Basophils (%) (Auto) , Differential Total Cells Counted 100, Neutrophils % (Manual) 87H, Lymphocytes % (Manual) 9L, Monocytes % (Manual) 4, Eosinophils % (Manual) 0, Basophils % ( Manual) 0, Band Neutrophils 0, Platelet Estimate DecreasedL, Platelet Morphology Normal, Hypochromasia 1+, Macrocytosis 1+, Sodium Level 148H, Potassium Level 5.2H, Chloride Level 112H, Carbon Dioxide Level 35H, Anion Gap 1L, Blood Urea Nitrogen 65H, Creatinine 2.0H, Estimat Glomerular Filtration Rate 25.2, Glucose Level 196H, Calcium Level 8.2L, Phosphorus Level 2.1L, Magnesium Level 1.9 Height (Feet): 5 Height (Inches): 6.00 Weight (Pounds): 326 General Appearance: no apparent distress, lethargic Objective no change TALIA ROGERS Jun 29, 2017 15:11
--- NOTE | 2017-06-29 16:56 | Cardiac Electrophysiology PN ---
Assessment/Plan Assessment/Plan 1. Paroxysmal Atrial fib with RVR. In SR on Cardizem 60 tid and Toprol 50 bid. Off anticoagulation for thrombocytopenia. Off tele 2. NSTEMI with troponin of 0.78. The patient does not want any invasive procedure . Continue aspirin, Plavix, Toprol, Imdur and Lipitor 3. Morbid obesity. 4. Hypertension, continue Cardizem 60 tid and Toprol 50 bid. 5. Pancytopenia. F/U by Dr. Muñoz including platelet count of 50,000. 6. Hypercarbic respiratory failure. The patient is refusing BiPAP. 7. Do Not Resuscitate/DNI. Awaiting Hopsice ABEL RN Subjective Subjective No events. Transferred to [facility] Objective Last 24 Hour Vital Signs Date Time Temp Pulse Resp B/P (MAP) Pulse Ox O2 Delivery O2 Flow Rate FiO2 06/29/17 16:00 97.0 75 20 123/72 100 06/29/17 15:10 80 139/84 06/29/17 11:36 98.2 80 21 139/84 100 06/29/17 09:08 76 192/89 06/29/17 09:07 192/89 06/29/17 08:53 98.4 76 21 192/89 100 06/29/17 07:45 97 Nasal Cannula 3.0 32 06/29/17 07:45 Nasal Cannula 3.0 32 06/29/17 06:11 86 161/86 06/29/17 04:00 97.7 86 20 161/86 98 06/29/17 00:00 97.5 95 21 120/68 95 06/28/17 21:44 81 154/83 06/28/17 21:00 98 Nasal Cannula 3.0 32 06/28/17 21:00 Nasal Cannula 3.0 32 06/28/17 20:45 87 129/64 06/28/17 20:00 97.7 81 21 129/54 96 06/28/17 18:03 130/60 Intake and Output 06/28/17 06/29/17 19:00 07:00 Output Total 500 ml Balance -500 ml Output Urine Total 500 ml Laboratory Tests Test 06/29/17 05:00 White Blood Count 6.4 K/UL (4.8-10.8) Red Blood Count 3.59 M/UL (4.20-5.40) L Hemoglobin 11.8 G/DL (12.0-16.0) L Hematocrit 36.7 % (37.0-47.0) L Mean Corpuscular Volume 102 FL (80-99) H Mean Corpuscular Hemoglobin 32.8 PG (27.0-31.0) H Mean Corpuscular Hemoglobin Concent 32.1 G/DL (32.0-36.0) Red Cell Distribution Width 13.2 % (11.6-14.8) Platelet Count 99 K/UL (150-450) L Mean Platelet Volume 7.2 FL (6.5-10.1) Neutrophils (%) (Auto) % (45.0-75.0) Lymphocytes (%) (Auto) % (20.0-45.0) Monocytes (%) (Auto) % (1.0-10.0) Eosinophils (%) (Auto) % (0.0-3.0) Basophils (%) (Auto) % (0.0-2.0) Differential Total Cells Counted 100 Neutrophils % (Manual) 87 % (45-75) H Lymphocytes % (Manual) 9 % (20-45) L Monocytes % (Manual) 4 % (1-10) Eosinophils % (Manual) 0 % (0-3) Basophils % (Manual) 0 % (0-2) Band Neutrophils 0 % (0-8) Platelet Estimate Decreased L Platelet Morphology Normal Hypochromasia 1+ Macrocytosis 1+ Sodium Level 148 MMOL/L (136-145) H Potassium Level 5.2 MMOL/L (3.5-5.1) H Chloride Level 112 MMOL/L (98-107) H Carbon Dioxide Level 35 MMOL/L (21-32) H Anion Gap 1 mmol/L (5-15) L Blood Urea Nitrogen 65 mg/dL (7-18) H Creatinine 2.0 MG/DL (0.55-1.30) H Estimat Glomerular Filtration Rate 25.2 mL/min (>60) Glucose Level 196 MG/DL (74-106) H Calcium Level 8.2 MG/DL (8.5-10.1) L Phosphorus Level 2.1 MG/DL (2.5-4.9) L Magnesium Level 1.9 MG/DL (1.8-2.4) Objective HEAD AND NECK: Showed no JVD. LUNGS: Decreased breath sounds. CARDIOVASCULAR: Regular S1 and s2 with No G/M ABDOMEN: Morbidly obese. EXTREMITIES: 1 plus pitting edema. LE BENSON Jun 29, 2017 16:56
--- NOTE | 2017-06-29 17:07 | General Progress Note ---
Assessment/Plan Assessment/Plan ASSESSMENT AND RECS: 1. Pancytopenia, likely due to liver disease/cirrhosis. Due to hepatitis C, chronic condition --> continue to monitor, ANC goal is above 1000 --> CT AP: Evidence of chronic liver disease/cirrhosis with stigmata of portal hypertension including trace ascites and splenomegaly --> plt goal above 20K, do not transfuse 2. Anemia secondary to chronic kidney disease. --> Anemia w/u reviewed 3. Elevated troponin, non-ST elevation myocardial infarction. Cardiology service following. --> contraindicated for anticoag given low platelets 4. Chronic obstructive pulmonary disease exacerbation versus pneumonia. 5. She was on BiPAP currently and is DNR/DNI. On antibiotics as per Pulmonary team. refusing care 6. Chronic kidney disease 7. DC planning, pt [facility] Subjective Constitutional: Denies: no symptoms, chills, diaphoresis, fever, malaise, weakness, other HEENT: Denies: no symptoms, eye pain, blurred vision, tearing, double vision, ear pain, ear discharge, nose pain, nose congestion, throat pain, throat swelling, mouth pain, mouth swelling, other Cardiovascular: Denies: no symptoms, chest pain, edema, irregular heart rate, lightheadedness, palpitations, syncope, other Respiratory: Denies: no symptoms, cough, orthopnea, shortness of breath, SOB with excertion, SOB at rest, sputum, stridor, wheezing, other Gastrointestinal/Abdominal: Denies: no symptoms, abdomen distended, abdominal pain, black stools, tarry stools, blood in stool, constipated, diarrhea, difficulty swallowing, nausea, poor appetite, poor fluid intake, rectal bleeding , vomiting, other Genitourinary: Denies: no symptoms, burning, discharge, frequency, flank pain, hematuria, incontinence, pain, urgency, other Neurologic/Psychiatric: Denies: no symptoms, anxiety, depressed, emotional problems, headache, numbness, paresthesia, pre-existing deficit, seizure, tingling, tremors, weakness, other Endocrine: Denies: no symptoms, excessive sweating, flushing, intolerance to cold, intolerance to heat, increased hunger, increased thirst, increased urine, unexplained weight gain, unexplained weight loss, other Hematologic/Lymphatic: Denies: no symptoms, anemia, easy bleeding, easy bruising, other Allergies: Coded Allergies: CODEINE (Unverified Allergy, Unknown, 12/31/14) FLURAZEPAM (Unverified Allergy, Unknown, 12/31/14) PENICILLINS (Unverified Allergy, Unknown, 12/31/14) Subjective DNR/DNI unchanged Objective Last 24 Hour Vital Signs Date Time Temp Pulse Resp B/P (MAP) Pulse Ox O2 Delivery O2 Flow Rate FiO2 06/29/17 16:58 123/72 06/29/17 16:00 97.0 75 20 123/72 100 06/29/17 15:10 80 139/84 06/29/17 11:36 98.2 80 21 139/84 100 06/29/17 09:08 76 192/89 06/29/17 09:07 192/89 06/29/17 08:53 98.4 76 21 192/89 100 06/29/17 07:45 97 Nasal Cannula 3.0 32 06/29/17 07:45 Nasal Cannula 3.0 32 06/29/17 06:11 86 161/86 06/29/17 04:00 97.7 86 20 161/86 98 06/29/17 00:00 97.5 95 21 120/68 95 06/28/17 21:44 81 154/83 06/28/17 21:00 98 Nasal Cannula 3.0 32 06/28/17 21:00 Nasal Cannula 3.0 32 06/28/17 20:45 87 129/64 06/28/17 20:00 97.7 81 21 129/54 96 06/28/17 18:03 130/60 Intake and Output 06/28/17 06/29/17 19:00 07:00 Output Total 500 ml Balance -500 ml Output Urine Total 500 ml Laboratory Tests 06/29/17 05:00: White Blood Count 6.4, Red Blood Count 3.59L, Hemoglobin 11.8L, Hematocrit 36.7L , Mean Corpuscular Volume 102H, Mean Corpuscular Hemoglobin 32.8H, Mean Corpuscular Hemoglobin Concent 32.1, Red Cell Distribution Width 13.2, Platelet Count 99L, Mean Platelet Volume 7.2, Neutrophils (%) (Auto) , Lymphocytes (%) ( Auto) , Monocytes (%) (Auto) , Eosinophils (%) (Auto) , Basophils (%) (Auto) , Differential Total Cells Counted 100, Neutrophils % (Manual) 87H, Lymphocytes % (Manual) 9L, Monocytes % (Manual) 4, Eosinophils % (Manual) 0, Basophils % ( Manual) 0, Band Neutrophils 0, Platelet Estimate DecreasedL, Platelet Morphology Normal, Hypochromasia 1+, Macrocytosis 1+, Sodium Level 148H, Potassium Level 5.2H, Chloride Level 112H, Carbon Dioxide Level 35H, Anion Gap 1L, Blood Urea Nitrogen 65H, Creatinine 2.0H, Estimat Glomerular Filtration Rate 25.2, Glucose Level 196H, Calcium Level 8.2L, Phosphorus Level 2.1L, Magnesium Level 1.9 Height (Feet): 5 Height (Inches): 6.00 Weight (Pounds): 326 General Appearance: alert EENT: normal ENT inspection Neck: non-tender Cardiovascular: regular rhythm Respiratory/Chest: lungs clear Abdomen: non tender Edema: 1+ Leg (L), 1+ Leg (R) Skin: warm/dry Phoenix Muñoz Jun 29, 2017 17:07
--- NOTE | 2017-06-29 19:17 | Pulmonology Progress Note ---
Assessment/Plan Problems: (1) CHF (congestive heart failure) (2) Respiratory failure (3) Pneumonia (4) Portal hypertension (5) Cirrhosis Assessment/Plan symptomatic treatment palliative care pts sister agreed with hospice awaiting discharge Subjective ROS Limited/Unobtainable: Yes Allergies: Coded Allergies: CODEINE (Unverified Allergy, Unknown, 12/31/14) FLURAZEPAM (Unverified Allergy, Unknown, 12/31/14) PENICILLINS (Unverified Allergy, Unknown, 12/31/14) Objective Last 24 Hour Vital Signs Date Time Temp Pulse Resp B/P (MAP) Pulse Ox O2 Delivery O2 Flow Rate FiO2 06/29/17 16:58 123/72 06/29/17 16:00 97.0 75 20 123/72 100 06/29/17 15:10 80 139/84 06/29/17 11:36 98.2 80 21 139/84 100 06/29/17 09:08 76 192/89 06/29/17 09:07 192/89 06/29/17 08:53 98.4 76 21 192/89 100 06/29/17 07:45 97 Nasal Cannula 3.0 32 06/29/17 07:45 Nasal Cannula 3.0 32 06/29/17 06:11 86 161/86 06/29/17 04:00 97.7 86 20 161/86 98 06/29/17 00:00 97.5 95 21 120/68 95 06/28/17 21:44 81 154/83 06/28/17 21:00 98 Nasal Cannula 3.0 32 06/28/17 21:00 Nasal Cannula 3.0 32 06/28/17 20:45 87 129/64 06/28/17 20:00 97.7 81 21 129/54 96 Intake and Output 06/28/17 06/29/17 19:00 07:00 Output Total 500 ml Balance -500 ml Output Urine Total 500 ml Objective General Appearance: WD/WN HEENT: normocephalic, atraumatic Respiratory/Chest: chest wall non-tender, lungs clear Abdomen: normal bowel sounds, soft, non tender Genitourinary: normal external genitalia Skin: no lesions Laboratory Tests 06/29/17 05:00: White Blood Count 6.4, Red Blood Count 3.59L, Hemoglobin 11.8L, Hematocrit 36.7L , Mean Corpuscular Volume 102H, Mean Corpuscular Hemoglobin 32.8H, Mean Corpuscular Hemoglobin Concent 32.1, Red Cell Distribution Width 13.2, Platelet Count 99L, Mean Platelet Volume 7.2, Neutrophils (%) (Auto) , Lymphocytes (%) ( Auto) , Monocytes (%) (Auto) , Eosinophils (%) (Auto) , Basophils (%) (Auto) , Differential Total Cells Counted 100, Neutrophils % (Manual) 87H, Lymphocytes % (Manual) 9L, Monocytes % (Manual) 4, Eosinophils % (Manual) 0, Basophils % ( Manual) 0, Band Neutrophils 0, Platelet Estimate DecreasedL, Platelet Morphology Normal, Hypochromasia 1+, Macrocytosis 1+, Sodium Level 148H, Potassium Level 5.2H, Chloride Level 112H, Carbon Dioxide Level 35H, Anion Gap 1L, Blood Urea Nitrogen 65H, Creatinine 2.0H, Estimat Glomerular Filtration Rate 25.2, Glucose Level 196H, Calcium Level 8.2L, Phosphorus Level 2.1L, Magnesium Level 1.9 Current Medications Medications (Trade) Dose Ordered Sig/Brooks Route PRN Reason Start Time Stop Time Status Last Admin Dose Admin Al Hydroxide/Mg Hydroxide (Mylanta) 30 ml Q4H PRN ORAL heartburn 06/28/17 13:00 07/28/17 12:59 Atorvastatin Calcium (Lipitor) 40 mg BEDTIME ORAL 06/28/17 21:00 07/25/17 20:59 06/28/17 20:45 Bupropion HCl (Wellbutrin XL) 450 mg DAILY ORAL 06/29/17 09:00 07/22/17 08:59 06/29/17 12:05 Chlorhexidine Gluconate (Sally-Hex 2%) 1 applic DAILY@1999 TOPIC 06/28/17 20:00 07/27/17 19:59 Clopidogrel Bisulfate (Plavix) 75 mg DAILY ORAL 06/29/17 09:00 07/22/17 08:59 06/29/17 09:06 Dextrose (Dextrose 50%) STAT PRN IV Hypoglycemia 06/28/17 14:15 07/21/17 14:14 Diltiazem HCl (Cardizem) 60 mg Q8HR ORAL 06/28/17 14:00 07/28/17 13:59 1/3/18 15:10 Docusate Sodium (Colace) 250 mg TWICE A DAY ORAL 06/28/17 18:00 07/21/17 17:59 06/29/17 16:59 Famotidine (Pepcid) 20 mg DAILY ORAL 06/29/17 09:00 07/25/17 08:59 06/29/17 09:07 Gabapentin (Neurontin) 300 mg Q12HR ORAL 06/28/17 21:00 07/21/17 20:59 06/29/17 09:07 Insulin Aspart (NovoLOG) BEFORE MEALS AND HS SUBQ 06/28/17 16:30 07/21/17 16:29 06/29/17 16:23 Isosorbide Mononitrate (Imdur) 30 mg BID ORAL 06/28/17 18:00 07/22/17 08:59 06/29/17 16:58 Methocarbamol (Robaxin) 500 mg Q12H PRN ORAL MUSCLE SPASM LOWER BACK 06/28/17 12:30 07/28/17 12:29 Metoprolol Tartrate (Lopressor) 50 mg Q12HR ORAL 06/28/17 21:00 07/21/17 20:59 06/29/17 09:08 Nitroglycerin (Ntg) 0.4 mg Q5M PRN SL Prn Chest Pain 06/28/17 12:30 07/21/17 12:29 Nystatin (Nystop Powder) 1 applic THREE TIMES A DAY TOPIC 06/28/17 13:00 07/21/17 19:59 06/29/17 16:59 Ondansetron HCl (Zofran ODT) 8 mg BIDPRN PRN ORAL Nausea & Vomiting 06/28/17 18:00 07/28/17 17:59 Rivastigmine Tartrate (Exelon) 6 mg TWICE A DAY ORAL 06/28/17 18:00 07/21/17 17:59 06/29/17 16:59 Sennosides (Senokot) 1 tab DAILY ORAL 06/29/17 09:00 07/22/17 08:59 06/29/17 09:07 PRISCILLA KNIGHT Jun 29, 2017 19:17
[2017-06-29] MEDS: Dyna-Hex 2% Top Sol 2oz TOPIC SCH (20:00)
[2017-06-29] MEDS: Atorvastatin 20mg tab ORAL SCH (22:26)
[2017-06-30] VITALS (7 sets, daily range): BP systolic 103–166; BP diastolic 48–89
[2017-06-30] MEDS: dilTIAZem HCl 60mg tab ORAL SCH ×4 (06:00→22:29)
[2017-06-30] MEDS: NovoLOG Insulin Flexpen SUBQ SCH ×4 (06:08→22:31)
[2017-06-30 07:35] LABS: HEMATOCRIT 38.1 % (37.0-47.0); HEMOGLOBIN 11.3 G/DL (12.0-16.0); MEAN CORPUSCULAR VOLUME 105 FL (80-99); PLATELET COUNT 78 K/UL (150-450); RED BLOOD COUNT 3.64 M/UL (4.20-5.40); RED CELL DISTRIBUTION WIDTH 13.6 % (11.6-14.8); WHITE BLOOD COUNT 7.8 K/UL (4.8-10.8)
[2017-06-30 08:11] LABS: ANION GAP 2 mmol/L (5-15); BLOOD UREA NITROGEN 74 mg/dL (7-18); CALCIUM 8.1 MG/DL (8.5-10.1); CARBON DIOXIDE 34 MMOL/L (21-32); CHLORIDE 114 MMOL/L (98-107); CREATININE 2.1 MG/DL (0.55-1.30); POTASSIUM 5.1 MMOL/L (3.5-5.1); SODIUM 150 MMOL/L (136-145)
[2017-06-30] MEDS: Exelon 1.5mg cap ORAL SCH ×2 (09:36→18:15)
[2017-06-30] MEDS: Sennosides 8.6mg ORAL SCH (09:37)
[2017-06-30] MEDS: Docusate 250mg cap ORAL SCH ×2 (09:37→18:15)
[2017-06-30] MEDS: BuPROPion XL 150mg tab ORAL SCH (09:37)
[2017-06-30] MEDS: Imdur 30mg tab ORAL SCH ×2 (09:37→18:15)
[2017-06-30] MEDS: Nystatin Powder 100,000 units/gm 15gm TOPIC SCH ×3 (09:38→18:16)
[2017-06-30] MEDS: Metoprolol Tartrate 50mg tab ORAL SCH ×2 (09:38→22:29)
--- NOTE | 2017-06-30 10:54 | GI Progress Note ---
Assessment/Plan Problems: (1) Abdominal pain ICD Codes: R10.9 - Unspecified abdominal pain SNOMED: 12598948 (2) Cirrhosis ICD Codes: K74.60 - Unspecified cirrhosis of liver SNOMED: 98498412 (3) Portal hypertension ICD Codes: K76.6 - Portal hypertension SNOMED: 35853172 (4) Constipation ICD Codes: K59.00 - Constipation, unspecified SNOMED: 12150758 (5) Vomiting ICD Codes: R11.10 - Vomiting, unspecified SNOMED: 117330286 Status: unchanged Status Narrative Discussed with Dr. Fuentes. Assessment/Plan CT AP reviewed >> Evidence of chronic liver disease/cirrhosis with stigmata of portal hypertension including trace ascites and splenomegaly, see full report. hepatitis C positive pancytopenia most likely due to liver disease elevated troponin levels patient is on plavix defer any GI procedures, conservative management and supportive care >> fu hospice eval monitor H&H, prn transfusions ppi daily manage portal HTN >> consider non-selective beta moon >> propranolol 10mg BID and titrate to goal SBP 100-120, hold for SBP < 100 or HR < 60. OT eval fu labs Subjective Subjective limited Objective Last 24 Hour Vital Signs Date Time Temp Pulse Resp B/P (MAP) Pulse Ox O2 Delivery O2 Flow Rate FiO2 06/30/17 09:38 70 141/69 06/30/17 09:37 141/69 06/30/17 08:00 97.6 70 21 141/69 97 06/30/17 04:00 98.6 78 22 122/75 100 Nasal Cannula 3.0 06/30/17 00:56 97.7 67 21 137/68 99 Room Air 06/29/17 22:26 72 137/83 06/29/17 22:26 72 137/83 06/29/17 21:56 Nasal Cannula 3.0 32 06/29/17 21:56 96 Nasal Cannula 3.0 32 06/29/17 20:26 97.3 72 20 137/83 95 Room Air 06/29/17 20:25 97.0 75 20 123/72 100 Nasal Cannula 3.0 32 06/29/17 16:58 123/72 06/29/17 16:00 97.0 75 20 123/72 100 18 15:10 80 139/84 06/29/17 11:36 98.2 80 21 139/84 100 Intake and Output 06/29/17 06/30/17 19:00 07:00 Intake Total 400 ml Output Total 700 ml Balance 400 ml -700 ml Intake Oral 400 ml Output Urine Total 700 ml Laboratory Tests Test 06/30/17 06:30 White Blood Count 7.8 K/UL (4.8-10.8) Red Blood Count 3.64 M/UL (4.20-5.40) L Hemoglobin 11.3 G/DL (12.0-16.0) L Hematocrit 38.1 % (37.0-47.0) Mean Corpuscular Volume 105 FL (80-99) H Mean Corpuscular Hemoglobin 31.1 PG (27.0-31.0) H Mean Corpuscular Hemoglobin Concent 29.6 G/DL (32.0-36.0) L Red Cell Distribution Width 13.6 % (11.6-14.8) Platelet Count 78 K/UL (150-450) L Mean Platelet Volume 8.3 FL (6.5-10.1) Neutrophils (%) (Auto) % (45.0-75.0) Lymphocytes (%) (Auto) % (20.0-45.0) Monocytes (%) (Auto) % (1.0-10.0) Eosinophils (%) (Auto) % (0.0-3.0) Basophils (%) (Auto) % (0.0-2.0) Differential Total Cells Counted 100 Neutrophils % (Manual) 78 % (45-75) H Lymphocytes % (Manual) 11 % (20-45) L Monocytes % (Manual) 11 % (1-10) H Eosinophils % (Manual) 0 % (0-3) Basophils % (Manual) 0 % (0-2) Band Neutrophils 0 % (0-8) Platelet Estimate Decreased L Platelet Morphology Normal Hypochromasia 1+ Macrocytosis 1+ Sodium Level 150 MMOL/L (136-145) H Potassium Level 5.1 MMOL/L (3.5-5.1) Chloride Level 114 MMOL/L (98-107) H Carbon Dioxide Level 34 MMOL/L (21-32) H Anion Gap 2 mmol/L (5-15) L Blood Urea Nitrogen 74 mg/dL (7-18) H Creatinine 2.1 MG/DL (0.55-1.30) H Estimat Glomerular Filtration Rate 23.9 mL/min (>60) Glucose Level 171 MG/DL (74-106) H Calcium Level 8.1 MG/DL (8.5-10.1) L Height (Feet): 5 Height (Inches): 6.00 Weight (Pounds): 328 General Appearance: WD/WN, no apparent distress, alert, morbidly obese Cardiovascular: normal rate Respiratory/Chest: normal breath sounds, no respiratory distress Abdominal Exam: normal bowel sounds, non tender, soft Extremities: non-tender Kalie Argueta N.P. Jun 30, 2017 10:54
--- NOTE | 2017-06-30 11:42 | Infectious Diseases Prog Note ---
Assessment/Plan Assessment/Plan antibiotics : levoquin, doxycycline A 1. pneumonia s/p rx 2. streptococcus UTI s/p rx 3. cirrhosis 4. pancreatitis 5. rectal VRE colonization P 1. levoquin d/c 2. doxycycline d/c 3. observe off antibiotics 4. d/c planned Subjective ROS Limited/Unobtainable: Yes Allergies: Coded Allergies: CODEINE (Unverified Allergy, Unknown, 12/31/14) FLURAZEPAM (Unverified Allergy, Unknown, 12/31/14) PENICILLINS (Unverified Allergy, Unknown, 12/31/14) Objective Vital Signs Last 24 Hour Vital Signs Date Time Temp Pulse Resp B/P (MAP) Pulse Ox O2 Delivery O2 Flow Rate FiO2 06/30/17 09:38 70 141/69 06/30/17 09:37 141/69 06/30/17 09:15 95 Nasal Cannula 3.0 32 06/30/17 09:15 Nasal Cannula 3.0 32 06/30/17 08:00 97.6 70 21 141/69 97 06/30/17 04:00 98.6 78 22 122/75 100 Nasal Cannula 3.0 06/30/17 00:56 97.7 67 21 137/68 99 Room Air 06/29/17 22:26 72 137/83 06/29/17 22:26 72 137/83 06/29/17 21:56 Nasal Cannula 3.0 32 06/29/17 21:56 96 Nasal Cannula 3.0 32 06/29/17 20:26 97.3 72 20 137/83 95 Room Air 06/29/17 20:25 97.0 75 20 123/72 100 Nasal Cannula 3.0 32 06/29/17 16:58 123/72 06/29/17 16:00 97.0 75 20 123/72 100 06/29/17 15:10 80 139/84 Height (Feet): 5 Height (Inches): 6.00 Weight (Pounds): 328 Respiratory/Chest: lungs clear Cardiovascular: normal rate, regular rhythm, no gallop/murmur Abdomen: soft, non tender Extremities: other - + edema Laboratory Tests Test 06/30/17 06:30 White Blood Count 7.8 K/UL (4.8-10.8) Red Blood Count 3.64 M/UL (4.20-5.40) L Hemoglobin 11.3 G/DL (12.0-16.0) L Hematocrit 38.1 % (37.0-47.0) Mean Corpuscular Volume 105 FL (80-99) H Mean Corpuscular Hemoglobin 31.1 PG (27.0-31.0) H Mean Corpuscular Hemoglobin Concent 29.6 G/DL (32.0-36.0) L Red Cell Distribution Width 13.6 % (11.6-14.8) Platelet Count 78 K/UL (150-450) L Mean Platelet Volume 8.3 FL (6.5-10.1) Neutrophils (%) (Auto) % (45.0-75.0) Lymphocytes (%) (Auto) % (20.0-45.0) Monocytes (%) (Auto) % (1.0-10.0) Eosinophils (%) (Auto) % (0.0-3.0) Basophils (%) (Auto) % (0.0-2.0) Differential Total Cells Counted 100 Neutrophils % (Manual) 78 % (45-75) H Lymphocytes % (Manual) 11 % (20-45) L Monocytes % (Manual) 11 % (1-10) H Eosinophils % (Manual) 0 % (0-3) Basophils % (Manual) 0 % (0-2) Band Neutrophils 0 % (0-8) Platelet Estimate Decreased L Platelet Morphology Normal Hypochromasia 1+ Macrocytosis 1+ Sodium Level 150 MMOL/L (136-145) H Potassium Level 5.1 MMOL/L (3.5-5.1) Chloride Level 114 MMOL/L (98-107) H Carbon Dioxide Level 34 MMOL/L (21-32) H Anion Gap 2 mmol/L (5-15) L Blood Urea Nitrogen 74 mg/dL (7-18) H Creatinine 2.1 MG/DL (0.55-1.30) H Estimat Glomerular Filtration Rate 23.9 mL/min (>60) Glucose Level 171 MG/DL (74-106) H Calcium Level 8.1 MG/DL (8.5-10.1) L ALEXANDRA BAEZ Jun 30, 2017 11:42
--- NOTE | 2017-06-30 15:44 | Nephrology Progress Note ---
Assessment/Plan Problem List: (1) Acute on chronic renal failure (2) Respiratory failure (3) Pneumonia (4) UTI (urinary tract infection) Assessment Na higher Cr 2 Renal failure- Has a chronic component with ? superimposed acute- in December 2014 the Cr was 2.2 now 2.1 Acute respiratory failure, ON BIPAP Morbid obesity Diabetic Nephropathy COPD Depression Dementia HypoAlbuminemia ? Nephrotic Syndrom Plan Plan: free PO H2O on Cardiazem PO DNR DNI Slow hydrate with D5w pul support 24 h urine CrCl and protein non nephrotic Urine studies keep BP and BS incheck adjust BP meds per consultants Subjective ROS Limited/Unobtainable: No Constitutional: Reports: malaise Objective Objective Last 24 Hour Vital Signs Date Time Temp Pulse Resp B/P (MAP) Pulse Ox O2 Delivery O2 Flow Rate FiO2 06/30/17 14:53 77 125/55 06/30/17 14:52 77 125/55 06/30/17 11:41 98.0 70 22 103/48 99 06/30/17 09:38 70 141/69 06/30/17 09:37 141/69 06/30/17 09:15 95 Nasal Cannula 3.0 32 06/30/17 09:15 Nasal Cannula 3.0 32 06/30/17 08:00 97.6 70 21 141/69 97 06/30/17 04:00 98.6 78 22 122/75 100 Nasal Cannula 3.0 06/30/17 00:56 97.7 67 21 137/68 99 Room Air 06/29/17 22:26 72 137/83 06/29/17 22:26 72 137/83 06/29/17 21:56 Nasal Cannula 3.0 32 06/29/17 21:56 96 Nasal Cannula 3.0 32 06/29/17 20:26 97.3 72 20 137/83 95 Room Air 06/29/17 20:25 97.0 75 20 123/72 100 Nasal Cannula 3.0 32 06/29/17 16:58 123/72 06/29/17 16:00 97.0 75 20 123/72 100 Intake and Output 06/29/17 06/30/17 19:00 07:00 Intake Total 400 ml Output Total 700 ml Balance 400 ml -700 ml Intake Oral 400 ml Output Urine Total 700 ml Laboratory Tests 06/30/17 06:30: White Blood Count 7.8, Red Blood Count 3.64L, Hemoglobin 11.3L, Hematocrit 38.1 , Mean Corpuscular Volume 105H, Mean Corpuscular Hemoglobin 31.1H, Mean Corpuscular Hemoglobin Concent 29.6L, Red Cell Distribution Width 13.6, Platelet Count 78L, Mean Platelet Volume 8.3, Neutrophils (%) (Auto) , Lymphocytes (%) (Auto) , Monocytes (%) (Auto) , Eosinophils (%) (Auto) , Basophils (%) (Auto) , Differential Total Cells Counted 100, Neutrophils % ( Manual) 78H, Lymphocytes % (Manual) 11L, Monocytes % (Manual) 11H, Eosinophils % (Manual) 0, Basophils % (Manual) 0, Band Neutrophils 0, Platelet Estimate DecreasedL, Platelet Morphology Normal, Hypochromasia 1+, Macrocytosis 1+, Sodium Level 150H, Potassium Level 5.1, Chloride Level 114H, Carbon Dioxide Level 34H, Anion Gap 2L, Blood Urea Nitrogen 74H, Creatinine 2.1H, Estimat Glomerular Filtration Rate 23.9, Glucose Level 171H, Calcium Level 8.1L Height (Feet): 5 Height (Inches): 6.00 Weight (Pounds): 328 General Appearance: obese Cardiovascular: normal rate Respiratory/Chest: decreased breath sounds Abdomen: soft Objective no change TALIA ROGERS Jun 30, 2017 15:44
--- NOTE | 2017-06-30 17:23 | Cardiac Electrophysiology PN ---
Assessment/Plan Assessment/Plan 1. Paroxysmal Atrial fib with RVR. In SR on Cardizem 60 tid and Toprol 50 bid. Off anticoagulation for thrombocytopenia. Off tele 2. NSTEMI with troponin of 0.78. Refused any invasive procedure. DNR . Continue aspirin, Plavix, Toprol, Imdur and Lipitor 3. Morbid obesity. 4. Hypertension, continue Cardizem 60 tid and Toprol 50 bid. 5. Pancytopenia. F/U by Dr. Muñoz including platelet count of 50,000. 6. Hypercarbic respiratory failure. The patient is refusing BiPAP. 7. Do Not Resuscitate/DNI. Awaiting Hopsice DW RN Subjective Subjective No events.RN at bedside. Awaiting hospice Objective Last 24 Hour Vital Signs Date Time Temp Pulse Resp B/P (MAP) Pulse Ox O2 Delivery O2 Flow Rate FiO2 06/30/17 16:00 97.5 60 20 166/89 96 06/30/17 14:53 77 125/55 06/30/17 14:52 77 125/55 06/30/17 11:41 98.0 70 22 103/48 99 06/30/17 09:38 70 141/69 06/30/17 09:37 141/69 06/30/17 09:15 95 Nasal Cannula 3.0 32 06/30/17 09:15 Nasal Cannula 3.0 32 06/30/17 08:00 97.6 70 21 141/69 97 06/30/17 04:00 98.6 78 22 122/75 100 Nasal Cannula 3.0 06/30/17 00:56 97.7 67 21 137/68 99 Room Air 06/29/17 22:26 72 137/83 06/29/17 22:26 72 137/83 06/29/17 21:56 Nasal Cannula 3.0 32 06/29/17 21:56 96 Nasal Cannula 3.0 32 06/29/17 20:26 97.3 72 20 137/83 95 Room Air 06/29/17 20:25 97.0 75 20 123/72 100 Nasal Cannula 3.0 32 Intake and Output 06/29/17 06/30/17 19:00 07:00 Intake Total 400 ml Output Total 700 ml Balance 400 ml -700 ml Intake Oral 400 ml Output Urine Total 700 ml Laboratory Tests Test 1/4/18 06:30 White Blood Count 7.8 K/UL (4.8-10.8) Red Blood Count 3.64 M/UL (4.20-5.40) L Hemoglobin 11.3 G/DL (12.0-16.0) L Hematocrit 38.1 % (37.0-47.0) Mean Corpuscular Volume 105 FL (80-99) H Mean Corpuscular Hemoglobin 31.1 PG (27.0-31.0) H Mean Corpuscular Hemoglobin Concent 29.6 G/DL (32.0-36.0) L Red Cell Distribution Width 13.6 % (11.6-14.8) Platelet Count 78 K/UL (150-450) L Mean Platelet Volume 8.3 FL (6.5-10.1) Neutrophils (%) (Auto) % (45.0-75.0) Lymphocytes (%) (Auto) % (20.0-45.0) Monocytes (%) (Auto) % (1.0-10.0) Eosinophils (%) (Auto) % (0.0-3.0) Basophils (%) (Auto) % (0.0-2.0) Differential Total Cells Counted 100 Neutrophils % (Manual) 78 % (45-75) H Lymphocytes % (Manual) 11 % (20-45) L Monocytes % (Manual) 11 % (1-10) H Eosinophils % (Manual) 0 % (0-3) Basophils % (Manual) 0 % (0-2) Band Neutrophils 0 % (0-8) Platelet Estimate Decreased L Platelet Morphology Normal Hypochromasia 1+ Macrocytosis 1+ Sodium Level 150 MMOL/L (136-145) H Potassium Level 5.1 MMOL/L (3.5-5.1) Chloride Level 114 MMOL/L (98-107) H Carbon Dioxide Level 34 MMOL/L (21-32) H Anion Gap 2 mmol/L (5-15) L Blood Urea Nitrogen 74 mg/dL (7-18) H Creatinine 2.1 MG/DL (0.55-1.30) H Estimat Glomerular Filtration Rate 23.9 mL/min (>60) Glucose Level 171 MG/DL (74-106) H Calcium Level 8.1 MG/DL (8.5-10.1) L Objective HEAD AND NECK: Showed no JVD. LUNGS: Decreased breath sounds. CARDIOVASCULAR: Regular S1 and s2 with No G/M ABDOMEN: Morbidly obese. EXTREMITIES: 1 plus pitting edema. LE BENSON Jun 30, 2017 17:23
--- NOTE | 2017-06-30 19:00 | General Progress Note ---
Assessment/Plan Assessment/Plan ASSESSMENT AND RECS: 1. Pancytopenia, likely due to liver disease/cirrhosis. Due to hepatitis C, chronic condition --> continue to monitor, ANC goal is above 1000 --> CT AP: Evidence of chronic liver disease/cirrhosis with stigmata of portal hypertension including trace ascites and splenomegaly --> plt goal above 20K, do not transfuse --> appreciate gi recs, have been reviewed, agree with BB 2. Anemia secondary to chronic kidney disease. --> Anemia w/u reviewed 3. Elevated troponin, non-ST elevation myocardial infarction. Cardiology service following. --> contraindicated for anticoag given low platelets, agree with plavix use 4. Chronic obstructive pulmonary disease exacerbation versus pneumonia. 5. She was on BiPAP currently and is DNR/DNI. On antibiotics as per Pulmonary team. refusing care 6. Chronic kidney disease 7. DC planning, pt to go to [facility] Subjective Constitutional: Reports: no symptoms HEENT: Reports: no symptoms Cardiovascular: Reports: no symptoms Respiratory: Reports: no symptoms Gastrointestinal/Abdominal: Reports: no symptoms Genitourinary: Reports: no symptoms Neurologic/Psychiatric: Reports: no symptoms Endocrine: Reports: no symptoms Hematologic/Lymphatic: Reports: anemia Allergies: Coded Allergies: CODEINE (Unverified Allergy, Unknown, 12/31/14) FLURAZEPAM (Unverified Allergy, Unknown, 12/31/14) PENICILLINS (Unverified Allergy, Unknown, 12/31/14) Subjective DNR/DNI unchanged, refusing bipap not bleeding Objective Last 24 Hour Vital Signs Date Time Temp Pulse Resp B/P (MAP) Pulse Ox O2 Delivery O2 Flow Rate FiO2 06/30/17 18:15 166/89 06/30/17 16:00 97.5 60 20 166/89 96 06/30/17 14:53 77 125/55 06/30/17 14:52 77 125/55 06/30/17 11:41 98.0 70 22 103/48 99 06/30/17 09:38 70 141/69 06/30/17 09:37 141/69 06/30/17 09:15 95 Nasal Cannula 3.0 32 06/30/17 09:15 Nasal Cannula 3.0 32 06/30/17 08:00 97.6 70 21 141/69 97 06/30/17 04:00 98.6 78 22 122/75 100 Nasal Cannula 3.0 06/30/17 00:56 97.7 67 21 137/68 99 Room Air 06/29/17 22:26 72 137/83 06/29/17 22:26 72 137/83 06/29/17 21:56 Nasal Cannula 3.0 32 06/29/17 21:56 96 Nasal Cannula 3.0 32 06/29/17 20:26 97.3 72 20 137/83 95 Room Air 06/29/17 20:25 97.0 75 20 123/72 100 Nasal Cannula 3.0 32 Intake and Output 06/29/17 06/30/17 19:00 07:00 Intake Total 400 ml Output Total 700 ml Balance 400 ml -700 ml Intake Oral 400 ml Output Urine Total 700 ml Laboratory Tests 06/30/17 06:30: White Blood Count 7.8, Red Blood Count 3.64L, Hemoglobin 11.3L, Hematocrit 38.1 , Mean Corpuscular Volume 105H, Mean Corpuscular Hemoglobin 31.1H, Mean Corpuscular Hemoglobin Concent 29.6L, Red Cell Distribution Width 13.6, Platelet Count 78L, Mean Platelet Volume 8.3, Neutrophils (%) (Auto) , Lymphocytes (%) (Auto) , Monocytes (%) (Auto) , Eosinophils (%) (Auto) , Basophils (%) (Auto) , Differential Total Cells Counted 100, Neutrophils % ( Manual) 78H, Lymphocytes % (Manual) 11L, Monocytes % (Manual) 11H, Eosinophils % (Manual) 0, Basophils % (Manual) 0, Band Neutrophils 0, Platelet Estimate DecreasedL, Platelet Morphology Normal, Hypochromasia 1+, Macrocytosis 1+, Sodium Level 150H, Potassium Level 5.1, Chloride Level 114H, Carbon Dioxide Level 34H, Anion Gap 2L, Blood Urea Nitrogen 74H, Creatinine 2.1H, Estimat Glomerular Filtration Rate 23.9, Glucose Level 171H, Calcium Level 8.1L Height (Feet): 5 Height (Inches): 6.00 Weight (Pounds): 328 General Appearance: alert EENT: TMs normal Neck: normal alignment Cardiovascular: normal rate Respiratory/Chest: normal breath sounds Abdomen: no organomegaly Extremities: non-tender Edema: no edema noted Leg (L), no edema noted Leg (R) Edema: mild edema Neurologic: no motor/sensory deficits Phoenix Muñoz Jun 30, 2017 19:00
--- NOTE | 2017-06-30 20:39 | Pulmonology Progress Note ---
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 Daughter is aware of the poor prognosis. Subjective ROS Limited/Unobtainable: No Constitutional: Reports: no symptoms HEENT: Repors: no symptoms Allergies: Coded Allergies: CODEINE (Unverified Allergy, Unknown, 12/31/14) FLURAZEPAM (Unverified Allergy, Unknown, 12/31/14) PENICILLINS (Unverified Allergy, Unknown, 12/31/14) Objective Last 24 Hour Vital Signs Date Time Temp Pulse Resp B/P (MAP) Pulse Ox O2 Delivery O2 Flow Rate FiO2 06/30/17 20:00 98.3 76 20 119/52 100 Nasal Cannula 3.0 06/30/17 18:15 166/89 06/30/17 16:00 97.5 60 20 166/89 96 06/30/17 14:53 77 125/55 06/30/17 14:52 77 125/55 06/30/17 11:41 98.0 70 22 103/48 99 06/30/17 09:38 70 141/69 06/30/17 09:37 141/69 06/30/17 09:15 95 Nasal Cannula 3.0 32 06/30/17 09:15 Nasal Cannula 3.0 32 06/30/17 08:00 97.6 70 21 141/69 97 06/30/17 04:00 98.6 78 22 122/75 100 Nasal Cannula 3.0 06/30/17 00:56 97.7 67 21 137/68 99 Room Air 06/29/17 22:26 72 137/83 06/29/17 22:26 72 137/83 06/29/17 21:56 Nasal Cannula 3.0 32 06/29/17 21:56 96 Nasal Cannula 3.0 32 Intake and Output 06/29/17 06/30/17 19:00 07:00 Intake Total 400 ml Output Total 700 ml Balance 400 ml -700 ml Intake Oral 400 ml Output Urine Total 700 ml Objective General Appearance: WD/WN HEENT: normocephalic, atraumatic Respiratory/Chest: chest wall non-tender, lungs clear Abdomen: normal bowel sounds, soft, non tender Genitourinary: normal external genitalia Skin: no lesions Laboratory Tests 06/30/17 06:30: White Blood Count 7.8, Red Blood Count 3.64L, Hemoglobin 11.3L, Hematocrit 38.1 , Mean Corpuscular Volume 105H, Mean Corpuscular Hemoglobin 31.1H, Mean Corpuscular Hemoglobin Concent 29.6L, Red Cell Distribution Width 13.6, Platelet Count 78L, Mean Platelet Volume 8.3, Neutrophils (%) (Auto) , Lymphocytes (%) (Auto) , Monocytes (%) (Auto) , Eosinophils (%) (Auto) , Basophils (%) (Auto) , Differential Total Cells Counted 100, Neutrophils % ( Manual) 78H, Lymphocytes % (Manual) 11L, Monocytes % (Manual) 11H, Eosinophils % (Manual) 0, Basophils % (Manual) 0, Band Neutrophils 0, Platelet Estimate DecreasedL, Platelet Morphology Normal, Hypochromasia 1+, Macrocytosis 1+, Sodium Level 150H, Potassium Level 5.1, Chloride Level 114H, Carbon Dioxide Level 34H, Anion Gap 2L, Blood Urea Nitrogen 74H, Creatinine 2.1H, Estimat Glomerular Filtration Rate 23.9, Glucose Level 171H, Calcium Level 8.1L Current Medications Medications (Trade) Dose Ordered Sig/Brooks Route PRN Reason Start Time Stop Time Status Last Admin Dose Admin Al Hydroxide/Mg Hydroxide (Mylanta) 30 ml Q4H PRN ORAL heartburn 06/28/17 13:00 07/28/17 12:59 Atorvastatin Calcium (Lipitor) 40 mg BEDTIME ORAL 06/28/17 21:00 07/25/17 20:59 06/29/17 22:26 Bupropion HCl (Wellbutrin XL) 450 mg DAILY ORAL 06/29/17 09:00 07/22/17 08:59 06/30/17 09:37 Chlorhexidine Gluconate (Sally-Hex 2%) 1 applic DAILY@2000 TOPIC 06/28/17 20:00 07/27/17 19:59 Clopidogrel Bisulfate (Plavix) 75 mg DAILY ORAL 06/29/17 09:00 07/22/17 08:59 1/4/18 09:38 Dextrose (Dextrose 50%) STAT PRN IV Hypoglycemia 06/28/17 14:15 07/21/17 14:14 Diltiazem HCl (Cardizem) 60 mg Q8HR ORAL 06/28/17 14:00 07/28/17 13:59 06/30/17 14:53 Docusate Sodium (Colace) 250 mg TWICE A DAY ORAL 06/28/17 18:00 07/21/17 17:59 06/30/17 18:15 Famotidine (Pepcid) 20 mg DAILY ORAL 06/29/17 09:00 07/25/17 08:59 06/30/17 09:38 Gabapentin (Neurontin) 300 mg Q12HR ORAL 06/28/17 21:00 07/21/17 20:59 06/30/17 09:37 Insulin Aspart (NovoLOG) BEFORE MEALS AND HS SUBQ 06/28/17 16:30 07/21/17 16:29 06/30/17 18:17 Isosorbide Mononitrate (Imdur) 30 mg BID ORAL 06/28/17 18:00 07/22/17 08:59 06/30/17 18:15 Methocarbamol (Robaxin) 500 mg Q12H PRN ORAL MUSCLE SPASM LOWER BACK 06/28/17 12:30 07/28/17 12:29 Metoprolol Tartrate (Lopressor) 50 mg Q12HR ORAL 06/28/17 21:00 07/21/17 20:59 06/30/17 09:38 Nitroglycerin (Ntg) 0.4 mg Q5M PRN SL Prn Chest Pain 06/28/17 12:30 07/21/17 12:29 Nystatin (Nystop Powder) 1 applic THREE TIMES A DAY TOPIC 06/28/17 13:00 07/21/17 19:59 06/30/17 18:16 Ondansetron HCl (Zofran ODT) 8 mg BIDPRN PRN ORAL Nausea & Vomiting 06/28/17 18:00 07/28/17 17:59 Rivastigmine Tartrate (Exelon) 6 mg TWICE A DAY ORAL 06/28/17 18:00 07/21/17 17:59 06/30/17 18:15 Sennosides (Senokot) 1 tab DAILY ORAL 06/29/17 09:00 07/22/17 08:59 06/30/17 09:37 PRISCILLA KNIGHT Jun 30, 2017 20:39
[2017-06-30] MEDS: Atorvastatin 20mg tab ORAL SCH (22:29)
[2017-07-01] VITALS: BP 136/56
[2017-07-01 04:34] VITALS: BP 109/84
[2017-07-01] MEDS: dilTIAZem HCl 60mg tab ORAL SCH ×2 (06:28→14:37)
[2017-07-01] MEDS: NovoLOG Insulin Flexpen SUBQ SCH ×3 (06:30→16:59)
[2017-07-01 08:00] VITALS: BP 150/57
[2017-07-01] MEDS: Docusate 250mg cap ORAL SCH ×2 (10:29→18:56)
[2017-07-01] MEDS: Exelon 1.5mg cap ORAL SCH ×2 (10:30→18:57)
[2017-07-01] MEDS: Imdur 30mg tab ORAL SCH ×2 (10:31→18:57)
[2017-07-01] MEDS: Metoprolol Tartrate 50mg tab ORAL SCH (10:31)
[2017-07-01] MEDS: Sennosides 8.6mg ORAL SCH (10:32)
[2017-07-01] MEDS: BuPROPion XL 150mg tab ORAL SCH (10:33)
[2017-07-01] MEDS: Nystatin Powder 100,000 units/gm 15gm TOPIC SCH ×3 (10:48→18:57)
[2017-07-01 12:00] VITALS: BP 141/65
--- NOTE | 2017-07-01 12:09 | Pulmonology Progress Note ---
Assessment/Plan Assessment/Plan ASSESSMENT acute on chronic hypoxemic hypercapnic resp failure requiring BiPAP-resolved probably NSTEMI PNA , s/p Rx UTI with Strep , s/p Rx Acute on chronic renal failure diabetic nephropathy HTN cardiovascular disease DM morbid obesity cirrhosis with portal HTN severe pulmonary HTN COPD pancytopenia 2 to liver disease anemia of CKD PAF with RVR hepatitis C hx of CVA Hx of IVDA palliative care PLAN OF CARE [facility] floor refused invasive procedures cardio follows medical management with ASA Plavix, BB, Imdur, statin ECHO - unable to calculate EF, RVSP of 70 c/w severe pulmonary HTN BP management with Cardizem and Toprol off a/coagulation 2 to low PLT ID follows, s/p abx Rx observe off abx urine cx + Strep, influenza negative, blood cx negative nephro follows renal failure with chronic component due to diabetic nephropathy, with superimposed acute free H20 slow hydration monitor renal parameters, lytes, avoid nephrotoxic 24 hr urine study no evidence of necrotoxic syndrome CT A/P and abd US both with evidence of liver cirrhosis and portal HTN BS management with SS of insulin symptomatic Rx DNR/DNI status overall prognosis poor discussed with family pt used to be a drug addict and 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 Hep C and cirrhosis secondary to IVDA in the past. Daughter aware of the poor prognosis. family opted for hospice care pending discharge to SNF with hospice care dc today to SNF with hospice services when bed arranged case discussed and evaluated by supervising physician Subjective Allergies: Coded Allergies: CODEINE (Unverified Allergy, Unknown, 12/31/14) FLURAZEPAM (Unverified Allergy, Unknown, 12/31/14) PENICILLINS (Unverified Allergy, Unknown, 12/31/14) Objective Last 24 Hour Vital Signs Date Time Temp Pulse Resp B/P (MAP) Pulse Ox O2 Delivery O2 Flow Rate FiO2 07/01/17 10:31 95 153/69 07/01/17 10:31 153/69 07/01/17 08:00 98.9 90 20 150/57 97 Room Air 3.0 07/01/17 06:28 83 109/84 07/01/17 04:34 97.8 83 19 109/84 98 Nasal Cannula 07/01/17 00:00 97.4 77 20 136/56 95 Nasal Cannula 2.0 06/30/17 22:29 76 119/52 06/30/17 22:29 76 119/52 06/30/17 20:00 Nasal Cannula 3.0 06/30/17 20:00 98.3 76 20 119/52 100 Nasal Cannula 3.0 06/30/17 18:15 166/89 06/30/17 16:00 97.5 60 20 166/89 96 06/30/17 14:53 77 125/55 06/30/17 14:52 77 125/55 Intake and Output 06/30/17 07/01/17 19:00 07:00 Intake Total 100 ml Balance 100 ml Intake Oral 100 ml General Appearance: no acute distress, other - morbidly obese female , bedridden, poorly responsive HEENT: normocephalic, atraumatic, anicteric Respiratory/Chest: lungs clear - with moderate air exchange , no accessory muscle use Cardiovascular: normal rate Abdomen: normal bowel sounds, soft, non tender - obese Extremities: other - + 1 edema BLE chronic Neurologic/Psychiatric: abnormal gait - bedridden , other - poorly responsive, foot drop Musculoskeletal: atrophy - BLE Current Medications Medications (Trade) Dose Ordered Sig/Brooks Route PRN Reason Start Time Stop Time Status Last Admin Dose Admin Al Hydroxide/Mg Hydroxide (Mylanta) 30 ml Q4H PRN ORAL heartburn 06/28/17 13:00 07/28/17 12:59 Atorvastatin Calcium (Lipitor) 40 mg BEDTIME ORAL 06/28/17 21:00 07/25/17 20:59 06/30/17 22:29 Bupropion HCl (Wellbutrin XL) 450 mg DAILY ORAL 06/29/17 09:00 07/22/17 08:59 07/01/17 10:33 Clopidogrel Bisulfate (Plavix) 75 mg DAILY ORAL 06/29/17 09:00 07/22/17 08:59 07/01/17 10:32 Dextrose (Dextrose 50%) STAT PRN IV Hypoglycemia 06/28/17 14:15 07/21/17 14:14 Diltiazem HCl (Cardizem) 60 mg Q8HR ORAL 06/28/17 14:00 07/28/17 13:59 07/01/17 06:28 Docusate Sodium (Colace) 250 mg TWICE A DAY ORAL 06/28/17 18:00 07/21/17 17:59 07/01/17 10:29 Famotidine (Pepcid) 20 mg DAILY ORAL 06/29/17 09:00 07/25/17 08:59 07/01/17 10:32 Gabapentin (Neurontin) 300 mg Q12HR ORAL 06/28/17 21:00 07/21/17 20:59 07/01/17 10:36 Insulin Aspart (NovoLOG) BEFORE MEALS AND HS SUBQ 06/28/17 16:30 07/21/17 16:29 07/01/17 06:30 Isosorbide Mononitrate (Imdur) 30 mg BID ORAL 06/28/17 18:00 07/22/17 08:59 07/01/17 10:31 Methocarbamol (Robaxin) 500 mg Q12H PRN ORAL MUSCLE SPASM LOWER BACK 06/28/17 12:30 07/28/17 12:29 Metoprolol Tartrate (Lopressor) 50 mg Q12HR ORAL 06/28/17 21:00 07/21/17 20:59 07/01/17 10:31 Nitroglycerin (Ntg) 0.4 mg Q5M PRN SL Prn Chest Pain 06/28/17 12:30 07/21/17 12:29 Nystatin (Nystop Powder) 1 applic THREE TIMES A DAY TOPIC 06/28/17 13:00 07/21/17 19:59 07/01/17 10:48 Ondansetron HCl (Zofran ODT) 8 mg BIDPRN PRN ORAL Nausea & Vomiting 06/28/17 18:00 07/28/17 17:59 Rivastigmine Tartrate (Exelon) 6 mg TWICE A DAY ORAL 06/28/17 18:00 07/21/17 17:59 07/01/17 10:30 Sennosides (Senokot) 1 tab DAILY ORAL 06/29/17 09:00 07/22/17 08:59 07/01/17 10:32 Luba Hewitt NP (Vanchtein) Jul 01, 2017 12:09
--- NOTE | 2017-07-01 13:33 | GI Progress Note ---
Assessment/Plan Problems: (1) Abdominal pain ICD Codes: R10.9 - Unspecified abdominal pain SNOMED: 86816629 (2) Cirrhosis ICD Codes: K74.60 - Unspecified cirrhosis of liver SNOMED: 25264684 (3) Portal hypertension ICD Codes: K76.6 - Portal hypertension SNOMED: 18453287 (4) Constipation ICD Codes: K59.00 - Constipation, unspecified SNOMED: 21162999 (5) Vomiting ICD Codes: R11.10 - Vomiting, unspecified SNOMED: 470694951 Status: unchanged Status Narrative Discussed with Dr. Fuentes. Assessment/Plan CT AP reviewed >> Evidence of chronic liver disease/cirrhosis with stigmata of portal hypertension including trace ascites and splenomegaly, see full report. hepatitis C positive pancytopenia most likely due to liver disease elevated troponin levels patient is on plavix defer any GI procedures, conservative management and supportive care >> fu hospice eval monitor H&H, prn transfusions ppi daily manage portal HTN >> consider non-selective beta moon >> propranolol OT eval fu labs Subjective Subjective limited Objective Last 24 Hour Vital Signs Date Time Temp Pulse Resp B/P (MAP) Pulse Ox O2 Delivery O2 Flow Rate FiO2 07/01/17 12:00 99.0 80 18 141/65 100 07/01/17 10:31 95 153/69 07/01/17 10:31 153/69 07/01/17 08:00 98.9 90 20 150/57 97 Room Air 3.0 07/01/17 06:28 83 109/84 07/01/17 04:34 97.8 83 19 109/84 98 Nasal Cannula 07/01/17 00:00 97.4 77 20 136/56 95 Nasal Cannula 2.0 06/30/17 22:29 76 119/52 06/30/17 22:29 76 119/52 06/30/17 20:00 Nasal Cannula 3.0 06/30/17 20:00 98.3 76 20 119/52 100 Nasal Cannula 3.0 06/30/17 18:15 166/89 06/30/17 16:00 97.5 60 20 166/89 96 06/30/17 14:53 77 125/55 06/30/17 14:52 77 125/55 Intake and Output 06/30/17 07/01/17 19:00 07:00 Intake Total 100 ml Balance 100 ml Intake Oral 100 ml Height (Feet): 5 Height (Inches): 6.00 Weight (Pounds): 328 General Appearance: no apparent distress, alert, confused, morbidly obese Cardiovascular: normal rate Respiratory/Chest: normal breath sounds, no respiratory distress Abdominal Exam: normal bowel sounds, non tender, soft Extremities: non-tender Kalie Argueta N.P. Jul 01, 2017 13:33
--- NOTE | 2017-07-01 14:10 | Nephrology Progress Note ---
Assessment/Plan Problem List: (1) Acute on chronic renal failure (2) Respiratory failure (3) Pneumonia (4) UTI (urinary tract infection) Assessment Na higher Cr 2 Renal failure- Has a chronic component with ? superimposed acute- in December 2014 the Cr was 2.2 now 2.1 Acute respiratory failure, ON BIPAP Morbid obesity Diabetic Nephropathy COPD Depression Dementia HypoAlbuminemia ? Nephrotic Syndrom Plan Plan: no labs today free PO H2O on Cardiazem PO DNR DNI Slow hydrate with D5w pul support 24 h urine CrCl and protein non nephrotic Urine studies keep BP and BS incheck adjust BP meds per consultants Subjective ROS Limited/Unobtainable: No Constitutional: Reports: malaise, weakness Objective Objective Last 24 Hour Vital Signs Date Time Temp Pulse Resp B/P (MAP) Pulse Ox O2 Delivery O2 Flow Rate FiO2 07/01/17 12:00 99.0 80 18 141/65 100 07/01/17 10:31 95 153/69 07/01/17 10:31 153/69 07/01/17 08:00 98.9 90 20 150/57 97 Room Air 3.0 07/01/17 06:28 83 109/84 07/01/17 04:34 97.8 83 19 109/84 98 Nasal Cannula 07/01/17 00:00 97.4 77 20 136/56 95 Nasal Cannula 2.0 06/30/17 22:29 76 119/52 06/30/17 22:29 76 119/52 06/30/17 20:00 Nasal Cannula 3.0 06/30/17 20:00 98.3 76 20 119/52 100 Nasal Cannula 3.0 06/30/17 18:15 166/89 06/30/17 16:00 97.5 60 20 166/89 96 06/30/17 14:53 77 125/55 06/30/17 14:52 77 125/55 Intake and Output 06/30/17 07/01/17 19:00 07:00 Intake Total 100 ml Balance 100 ml Intake Oral 100 ml Height (Feet): 5 Height (Inches): 6.00 Weight (Pounds): 328 General Appearance: lethargic, confused Cardiovascular: normal rate Respiratory/Chest: decreased breath sounds Abdomen: soft Objective no change TALIA ROGERS Jul 01, 2017 14:10
--- NOTE | 2017-07-01 14:32 | Infectious Diseases Prog Note ---
Assessment/Plan Assessment/Plan A: Pneumonia treated UTI with VRE treated VRE colonization COPD Hypercapnic respiratory failure Chronic kidney disease Morbid obesity DM PCN allergy Cirrhosis P; observe off antibiotic going to hospice today Subjective ROS Limited/Unobtainable: Yes Allergies: Coded Allergies: CODEINE (Unverified Allergy, Unknown, 12/31/14) FLURAZEPAM (Unverified Allergy, Unknown, 12/31/14) PENICILLINS (Unverified Allergy, Unknown, 12/31/14) Objective Vital Signs Last 24 Hour Vital Signs Date Time Temp Pulse Resp B/P (MAP) Pulse Ox O2 Delivery O2 Flow Rate FiO2 07/01/17 12:00 99.0 80 18 141/65 100 07/01/17 10:31 95 153/69 07/01/17 10:31 153/69 07/01/17 08:00 98.9 90 20 150/57 97 Room Air 3.0 07/01/17 06:28 83 109/84 07/01/17 04:34 97.8 83 19 109/84 98 Nasal Cannula 07/01/17 00:00 97.4 77 20 136/56 95 Nasal Cannula 2.0 06/30/17 22:29 76 119/52 06/30/17 22:29 76 119/52 06/30/17 20:00 Nasal Cannula 3.0 06/30/17 20:00 98.3 76 20 119/52 100 Nasal Cannula 3.0 06/30/17 18:15 166/89 06/30/17 16:00 97.5 60 20 166/89 96 06/30/17 14:53 77 125/55 06/30/17 14:52 77 125/55 Height (Feet): 5 Height (Inches): 6.00 Weight (Pounds): 328 HEENT: mucous membranes moist Respiratory/Chest: lungs clear Cardiovascular: normal rate Abdomen: soft, non tender Extremities: other - edema Neurologic/Psychiatric: disoriented Current Medications Medications (Trade) Dose Ordered Sig/Brooks Route PRN Reason Start Time Stop Time Status Last Admin Dose Admin Al Hydroxide/Mg Hydroxide (Mylanta) 30 ml Q4H PRN ORAL heartburn 06/28/17 13:00 07/28/17 12:59 Atorvastatin Calcium (Lipitor) 40 mg BEDTIME ORAL 06/28/17 21:00 07/25/17 20:59 06/30/17 22:29 Bupropion HCl (Wellbutrin XL) 450 mg DAILY ORAL 06/29/17 09:00 07/22/17 08:59 07/01/17 10:33 Clopidogrel Bisulfate (Plavix) 75 mg DAILY ORAL 06/29/17 09:00 07/22/17 08:59 07/01/17 10:32 Dextrose (Dextrose 50%) STAT PRN IV Hypoglycemia 06/28/17 14:15 07/21/17 14:14 Diltiazem HCl (Cardizem) 60 mg Q8HR ORAL 06/28/17 14:00 07/28/17 13:59 07/01/17 06:28 Docusate Sodium (Colace) 250 mg TWICE A DAY ORAL 06/28/17 18:00 07/21/17 17:59 07/01/17 10:29 Famotidine (Pepcid) 20 mg DAILY ORAL 06/29/17 09:00 07/25/17 08:59 07/01/17 10:32 Gabapentin (Neurontin) 300 mg Q12HR ORAL 06/28/17 21:00 07/21/17 20:59 07/01/17 10:36 Insulin Aspart (NovoLOG) BEFORE MEALS AND HS SUBQ 06/28/17 16:30 07/21/17 16:29 07/01/17 12:15 Isosorbide Mononitrate (Imdur) 30 mg BID ORAL 06/28/17 18:00 07/22/17 08:59 07/01/17 10:31 Methocarbamol (Robaxin) 500 mg Q12H PRN ORAL MUSCLE SPASM LOWER BACK 06/28/17 12:30 07/28/17 12:29 Metoprolol Tartrate (Lopressor) 50 mg Q12HR ORAL 06/28/17 21:00 07/21/17 20:59 07/01/17 10:31 Nitroglycerin (Ntg) 0.4 mg Q5M PRN SL Prn Chest Pain 06/28/17 12:30 07/21/17 12:29 Nystatin (Nystop Powder) 1 applic THREE TIMES A DAY TOPIC 06/28/17 13:00 07/21/17 19:59 07/01/17 14:23 Ondansetron HCl (Zofran ODT) 8 mg BIDPRN PRN ORAL Nausea & Vomiting 06/28/17 18:00 07/28/17 17:59 Rivastigmine Tartrate (Exelon) 6 mg TWICE A DAY ORAL 06/28/17 18:00 07/21/17 17:59 07/01/17 10:30 Sennosides (Senokot) 1 tab DAILY ORAL 06/29/17 09:00 07/22/17 08:59 07/01/17 10:32 LUIZ ELDRIDGE Jul 01, 2017 14:32
[2017-07-01 16:00] VITALS: BP 143/67
[2017-07-01 18:57] VITALS: BP 134/64
--- NOTE | 2017-07-01 19:34 | Cardiac Electrophysiology PN ---
Assessment/Plan Assessment/Plan 1. Paroxysmal Atrial fib with RVR. On Cardizem 60 tid and Toprol 50 bid. Off anticoagulation for thrombocytopenia. Off tele 2. NSTEMI with troponin of 0.78. Refused any invasive procedure. DNR . Continue aspirin, Plavix, Toprol, Imdur and Lipitor 3. Morbid obesity. 4. Hypertension, continue Cardizem 60 tid and Toprol 50 bid. 5. Pancytopenia. F/U by Dr. Muñoz including platelet count of 50,000. 6. Hypercarbic respiratory failure. The patient is refusing BiPAP. 7. Do Not Resuscitate/DNI.DC to [facility] RN Subjective Subjective Not doing well.RN at bedside. Awaiting DC to hospice Objective Last 24 Hour Vital Signs Date Time Temp Pulse Resp B/P (MAP) Pulse Ox O2 Delivery O2 Flow Rate FiO2 07/01/17 18:57 134/64 07/01/17 16:00 98.1 77 20 143/67 100 07/01/17 14:37 82 130/79 07/01/17 12:00 99.0 80 18 141/65 100 07/01/17 10:31 95 153/69 07/01/17 10:31 153/69 07/01/17 08:00 98.9 90 20 150/57 97 Room Air 3.0 07/01/17 06:28 83 109/84 07/01/17 04:34 97.8 83 19 109/84 98 Nasal Cannula 07/01/17 00:00 97.4 77 20 136/56 95 Nasal Cannula 2.0 06/30/17 22:29 76 119/52 06/30/17 22:29 76 119/52 06/30/17 20:00 Nasal Cannula 3.0 06/30/17 20:00 98.3 76 20 119/52 100 Nasal Cannula 3.0 Intake and Output 06/30/17 07/01/17 19:00 07:00 Intake Total 100 ml Balance 100 ml Intake Oral 100 ml Objective HEAD AND NECK: Showed no JVD. LUNGS: Decreased breath sounds. CARDIOVASCULAR: Regular S1 and s2 with No G/M ABDOMEN: Morbidly obese. EXTREMITIES: 1 plus pitting edema. LE BENSON Jul 01, 2017 19:34
--- NOTE | 2017-07-01 19:41 | General Progress Note ---
Assessment/Plan Assessment/Plan ASSESSMENT AND RECS: 1. Pancytopenia, likely due to liver disease/cirrhosis. Due to hepatitis C, chronic condition --> continue to monitor, ANC goal is above 1000 --> CT AP: Evidence of chronic liver disease/cirrhosis with stigmata of portal hypertension including trace ascites and splenomegaly --> plt goal above 20K, do not transfuse --> appreciate gi recs, have been reviewed, agree with BB 2. Anemia secondary to chronic kidney disease. --> Anemia w/u reviewed 3. Elevated troponin, non-ST elevation myocardial infarction. Cardiology service following. --> contraindicated for anticoag given low platelets, agree with plavix use 4. Chronic obstructive pulmonary disease exacerbation versus pneumonia. 5. She was on BiPAP currently and is DNR/DNI. On antibiotics as per Pulmonary team. --> has been refusing care 6. Chronic kidney disease 7. DC planning, pt to go to [facility] Subjective Constitutional: Reports: no symptoms HEENT: Reports: no symptoms Cardiovascular: Reports: no symptoms Respiratory: Reports: no symptoms Gastrointestinal/Abdominal: Reports: no symptoms Genitourinary: Reports: no symptoms Neurologic/Psychiatric: Reports: no symptoms Endocrine: Reports: no symptoms Hematologic/Lymphatic: Reports: anemia Allergies: Coded Allergies: CODEINE (Unverified Allergy, Unknown, 12/31/14) FLURAZEPAM (Unverified Allergy, Unknown, 12/31/14) PENICILLINS (Unverified Allergy, Unknown, 12/31/14) Subjective DNR/DNI unchanged, refusing bipap not bleedingm going to hospice Objective Last 24 Hour Vital Signs Date Time Temp Pulse Resp B/P (MAP) Pulse Ox O2 Delivery O2 Flow Rate FiO2 07/01/17 18:57 134/64 07/01/17 16:00 98.1 77 20 143/67 100 07/01/17 14:37 82 130/79 07/01/17 12:00 99.0 80 18 141/65 100 07/01/17 10:31 95 153/69 07/01/17 10:31 153/69 07/01/17 08:00 98.9 90 20 150/57 97 Room Air 3.0 07/01/17 06:28 83 109/84 07/01/17 04:34 97.8 83 19 109/84 98 Nasal Cannula 07/01/17 00:00 97.4 77 20 136/56 95 Nasal Cannula 2.0 06/30/17 22:29 76 119/52 06/30/17 22:29 76 119/52 06/30/17 20:00 Nasal Cannula 3.0 06/30/17 20:00 98.3 76 20 119/52 100 Nasal Cannula 3.0 Intake and Output 06/30/17 07/01/17 19:00 07:00 Intake Total 100 ml Balance 100 ml Intake Oral 100 ml Height (Feet): 5 Height (Inches): 6.00 Weight (Pounds): 328 General Appearance: no apparent distress EENT: pharynx normal Neck: abnormal alignment Cardiovascular: no JVD Respiratory/Chest: no respiratory distress Extremities: non-tender Edema: 1+ Leg (L), 1+ Leg (R) Neurologic: abnormal gait Skin: warm/dry [place] Muñoz Jul 01, 2017 19:41
--- NOTE | 2017-07-04 12:01 | Discharge Summary ---
Discharge Summary Hospital Course Date of Admission Jun 20, 2017 at 22:53 Date of Discharge Jul 01, 2017 at 20:15 Admitting Diagnosis RESP FAILURE HPI Luba Ferguson is a 62 year old female who was admitted on Jun 20, 2017 at 22:53 for Respiratory Failure Hospital Course dc summary #[id number] Discharge Medications Continued Medications: Diltiazem Hcl (Diltiazem Hcl) 60 Mg Tablet 60 MG PO Q8HR, TAB Insulin Aspart (Novolog) 100 Unit/1 Ml Cartridge 100 UNIT SQ AC+HS Metoprolol Tartrate (Metoprolol Tartrate) 75 Mg Tablet 50 MG PO Q12HR, TAB Nitroglycerin (Nitroglycerin) 0.4 Mg Tab.subl 0.4 MG SL Q 5 mins x3, TAB Discontinued Medications: Atorvastatin (Lipitor) 80 Mg Tablet 80 MG ORAL BEDTIME, #30 TAB 0 Refills Discharge Condition Upon Discharge: stable Discharge Disposition Patient was discharged to SNF with hospice services Discharge Diagnoses: Discharge Instructions Discharge Instructions Special Instructions I have been assigned to complete a D/C Summary on this account. I was not involved in the patient management Luba Hewitt NP (Vanchtein) Jul 04, 2017 12:01
--- NOTE | 2017-07-05 00:24 | Cardiology Report ---
APPROVED REPORT EKG Measurement Heart [id number] Normal sinus rhythm Nonspecific intraventricular block Nonspecific T wave abnormality Abnormal ECG
--- NOTE | 2017-07-05 12:50 | Cardiology Report ---
APPROVED REPORT EXAM: Two-dimensional and M-mode echocardiogram with Doppler and color Doppler. INDICATION Congestive Heart Failure Other Information Technically limited study due to patient body habitus Technically difficult and limited study due to patient body habitus. Study quality precludes accurate assessment of regional wall motion. M-mode measurements of left ventricle not obtainable. Mild left ventricular enlargement by 2D. Left ventricular systolic function and ejection fraction cannot be determined. No evidence of left ventricular hypertrophy. Anterior Echo-free space, may be due to pericardial fat or effusion. Mild bi-atrial enlargement. Mild right ventricular enlargement. Focal aortic valve sclerosis with adequate cusp excursion. Thickened mitral valve leaflets with normal excursion. Echogenic material on posterior mitral valve leaflet, likely calcification. Mitral annulus and aortic root calcification. Pulmonic valve not visualized. Normal tricuspid valve structure. IVC dilated at 1.8 cm with physiologic collapse suggestive of increased RA pressure. A color flow and spectral Doppler study was performed and revealed: Mild aortic regurgitation. Moderate mitral regurgitation. Mitral diastolic velocities suggest mild left ventricular dysfunction (Grade I ). Mild tricuspid regurgitation. Tricuspid systolic velocities suggests peak right ventricular systolic pressure of 70 mmHg, consistent with severe pulmonary hypertension. No pulmonic regurgitation present.
--- NOTE | 2017-07-06 09:42 | Discharge Summary 2 SIG ---
DATE OF ADMISSION: 06/20/2017 DATE OF DISCHARGE: 07/01/2017 REASON FOR ADMISSION: 62-year-old female, resident of shelter facility with past medical history significant for morbid obesity, hypertensive cardiovascular disease, chronic kidney disease, neuropathy, type 2 diabetes, congestive heart failure, chronic obstructive pulmonary disease, depression, history of drug abuse, and liver cirrhosis, presented to emergency department for evaluation due to the respiratory distress. The patient was a DNR/DNI status. Upon evaluation in the emergency department, the patient was hypoxic and required placement of the BiPAP. ABG revealed respiratory acidosis with a pH -7.11 and pCO2 -136. Troponin elevated -0.818. EKG showed no acute ischemic changes. Elevated pro BNP- 21,631. Chest x-ray revealed congestive heart failure and left-sided infiltrate. No leukocytosis. Elevated potassium -5.4. Renal insufficiency with BUN-53 and creatinine -2.1. Urinalysis grossly positive for urinary tract infection. The patient was given aspirin, antibiotics, and hydration. The patient somewhat improved. The patient was admitted with diagnoses of respiratory failure, pneumonia, urinary tract infection, congestive heart failure, and possible non-STEMI. HOSPITAL COURSE: The patient was admitted to [facility]. Cardiology, ID, and Nephrology consults were requested. The patient was on the BiPAP. The patient was followed up with ABG and chest x-ray. The patient was started on diuresis and empiric antibiotics. Influenza screen was negative. Blood culture negative. Urinalysis shows evidence of Strep species . The patient status post treatment for pneumonia and urinary tract infection. ID recommended to observe patient off antibiotics. No leukocytosis. Afebrile. Pulmonary toilet provided as needed. The patient eventually was able to be weaned to oxygen via nasal cannula. Pulse oximetry stable. Marine Radio Installer And Servicer closely followed. The patient had serial troponin with Last troponin -1.519. Echocardiogram, unable to calculate ejection fraction, technically difficult study. Right ventricular systolic pressure of 70 consistent with severe pulmonary hypertension. The patient refused invasive procedure. The patient was managed medically with aspirin, Plavix, beta-moon, Imdur, and statin. Blood pressure was managed with Cardizem and Toprol. The patient had evidence of atrial fibrillation with rapid ventricular response. Rate was controlled with beta-moon and calcium channel moon. The patient was off anticoagulation secondary to thrombocytopenia. Charge Machine Operator closely followed for renal failure. The patient likely had a chronic component of renal failure due to the diabetic nephropathy with superimposed acute. Free water was given. Slow hydration provided. Renal parameters and electrolytes were closely monitored and replaced as needed. Nephrotoxics were avoided. 24-hours urine study had no evidence of necrotic syndrome. CT of the abdomen and pelvis and abdominal ultrasound both with evidence of liver cirrhosis and portal hypertension. Blood sugar was managed with sliding scale of insulin. Symptomatic treatment was provided. GI closely followed. Per GI, the patient had evidence of chronic liver disease/ cirrhosis with stigmata of portal hypertension. Hepatitis panel with positive hepatitic C. Pancytopenia was likely secondary to liver disease. GI deferred any GI procedure and recommended conservative management and supportive care. GI recommended hospice evaluation as appropriate care for this patient. Hemoglobin and hematocrit were closely monitored. No need for transfusion. The patient was on PPI. For management of portal hypertension, he recommended non-selective beta-moon such as a propranolol. Medical Data Analyst closely followed the patient. Counts were closely monitored. Pancytopenia likely secondary to liver disease. Anemia workup consistent with anemia of chronic kidney disease. Monitor closely hemoglobin and hematocrit at the facility. All consultants cleared the patient for discharge. Wound care provided as per wound care nurse recommendation for multiple deep tissue injuries and pressure ulcer stage I left fifth metatarsal stage I. Extensive discussion with daughter indicated that the patient used to be a drug addict and had a CVA 12 years ago, which made her bedbound and senior care resident. The patient had a hepatitis C and cirrhosis secondary to intravenous drug abuse in the past. Daughter was made aware of the poor prognosis and after discussion with the family, family opted for hospice care. The patient was transferred to shelter facility with hospice care. FINAL DIAGNOSES: 1. Acute on chronic hypoxemic hypercapnic respiratory failure requiring BiPAP, resolved. 2. Likely [id number] myocardial infarction. 3. Pneumonia, status post treatment. 4. Urinary tract infection with Strep, status post treatment. 5. Acute on chronic renal failure. 6. Diabetic nephropathy. 7. Hypertensive cardiovascular disease. 8. Paroxysmal atrial fibrillation with rapid ventricular response, resolved. 9. Diabetes mellitus. 10. Morbid obesity. 11. Severe pulmonary hypertension. 12. Chronic obstructive pulmonary disease. 13. Cirrhosis with portal hypertension. 14. Pancytopenia secondary to liver disease. 15. Anemia of chronic kidney disease. 16. Hepatitis C. 17. History of cerebrovascular accident. 18. History of intravenous drug abuse. 19. Palliative care. DISCHARGE MEDICATIONS: See medication reconciliation list. DISCHARGE INSTRUCTIONS: The patient was discharged to shelter facility with hospice care. DNR/DNI status. Shanell Bhat M.D. Luba MccannSt. Peter'S Health PartnersЕкатерина NKalpanaPKalpana DR: SIXTO JOB#: [id number] CC: GISELL
== END 2017-07-01 20:15 | DRG 133 ==
LOC: EDBD 20:59 → EDSEX 20:59 → EMR 21:36 → 2W 22:53 → EDBEDREQ 06-21 06:17 → 2E 06-24 22:37 → 4E 06-28 13:38
PROC: 5A09457 Assistance with Respiratory Ventilation, 24-96 Consecutive Hours, Continuous Positive Airway Pressure (ICD-10-PCS; principal; 2017-06-20)
DX: J96.21 Acute and chronic respiratory failure with hypoxia (principal); I21.4 Non-ST elevation (NSTEMI) myocardial infarction; I50.23 Acute on chronic systolic (congestive) heart failure; J18.9 Pneumonia, unspecified organism; N17.9 Acute kidney failure, unspecified; D61.818 Other pancytopenia; I13.0 Hypertensive heart and chronic kidney disease with heart failure and stage 1 through stage 4 chronic kidney disease, or unspecified chronic kidney disease; J90 Pleural effusion, not elsewhere classified; K85.90 Acute pancreatitis without necrosis or infection, unspecified; E11.21 Type 2 diabetes mellitus with diabetic nephropathy; F03.90 Unspecified dementia, unspecified severity, without behavioral disturbance, psychotic disturbance, mood disturbance, and anxiety; N18.9 Chronic kidney disease, unspecified; E66.01 Morbid (severe) obesity due to excess calories; Z68.45 Body mass index [BMI] 70 or greater, adult; F32.9 Major depressive disorder, single episode, unspecified; N39.0 Urinary tract infection, site not specified; Z66 Do not resuscitate; Z23 Encounter for immunization; D63.1 Anemia in chronic kidney disease; J96.22 Acute and chronic respiratory failure with hypercapnia; J44.1 Chronic obstructive pulmonary disease with (acute) exacerbation; K76.6 Portal hypertension; K74.69 Other cirrhosis of liver; B19.20 Unspecified viral hepatitis C without hepatic coma; J44.0 Chronic obstructive pulmonary disease with (acute) lower respiratory infection; E88.09 Other disorders of plasma-protein metabolism, not elsewhere classified; I48.0 Paroxysmal atrial fibrillation; B95.5 Unspecified streptococcus as the cause of diseases classified elsewhere; Z74.01 Bed confinement status; I27.20 Pulmonary hypertension, unspecified; Z51.5 Encounter for palliative care; F19.21 Other psychoactive substance dependence, in remission; K59.00 Constipation, unspecified; Z86.73 Personal history of transient ischemic attack (TIA), and cerebral infarction without residual deficits; Z88.0 Allergy status to penicillin
CPT/HCPCS: 36415; 36600; 51702; 71010; 74000; 74176; 76700; 80048; 80053; 80061; 81003; 81050; 82550; 82575; 82803; 82962; 82977; 83036; 83605; 83690; 83735; 83880; 84100; 84156; 84443; 84484; 84550; 85007; 85025; 85610; 85730; 86140; 86703; 86705; 86709; 86710; 86803; 87040; 87081; 87086; 87181; 87340; 90630; 93005; 93306; 94660; 94664; 94760; 99285; J1815